=== PATIENT | female | born 1995 | race Caucasian/White ===

== ENCOUNTER 2023-10-17 08:24 | Day surgery (SDC) | payer OTHER, SELFPAY ==
--- NOTE | 2023-10-08 15:58 | PCM.HP.BLA ---
History and Physical Date of Admission: 10/17/23 Pre-Op History and Physical ? HPI: The patient is a 28 year old female presenting for discussion regarding EM polyp and AUB. Pt would like to get - does not desire hormonal therapy. Pt discussed option with Dr. Cano- would like to proceed with Hysterosocpy, D&C, polypectomy. ? pre-operative visit. She is scheduled for Hysteroscopy D&C and polypectomy, EUA, for AUB, endometrial polyp on 10/17/23. Procedure discussed along with risks, benefits and complications. Other alternatives discussed for management. Consent form signed? Yes. ? ? PAST MEDICAL HISTORY PAST MEDICAL HISTORY Diagnosis Date ? Heart palpitations ? ? Inappropriate sinus tachycardia ? ? Migraine with visual aura 08/2022 ? one episode - [facility] neurology letter in scanned documents ? Vasovagal syncope ? ? ? PAST SURGICAL HISTORY PAST SURGICAL HISTORY Procedure Laterality Date ? GALLBLADDER/EF ? 10/20/2010 ? NEXPLANON INSERTION Left 05/01/2021 ? removed ? NEXPLANON REMOVAL ? 08/2021 ? REDUCTION OF LARGE BREAST ? 10/20/2012 ? TONSILLECTOMY HX ? 10/20/2003 ? ? ? CURRENT MEDICATIONS Current Outpatient Medications Medication Sig Dispense Refill ? topiramate (TOPAMAX ORAL) Take by mouth. ? ? ? sumatriptan succinate (IMITREX ORAL) Take by mouth. ? ? ? metFORMIN ER (GLUCOPHAGE XR) 500 mg 24 hr tablet Take 2 tablets by mouth daily with dinner. 90 tablet 0 ? buPROPion SR (WELLBUTRIN SR) 150 mg 12 hr tablet Take 1 tablet by mouth twice daily. 180 tablet 0 ? ergocalciferol 50,000 unit capsule (VITAMIN D2, DRISDOL) Take 1 capsule by mouth one time a week. 12 capsule 3 ? albuterol HFA (PROVENTIL HFA, VENTOLIN HFA) 90 mcg/actuation inhaler Inhale as instructed. ? ? ? naproxen sodium (ANAPROX) 220 mg tablet Take 220 mg by mouth twice daily with meals. As needed ? ? ? No current facility-administered medications for this visit. ? ? ALLERGIES: Patient has no known allergies. ? PERSONAL HISTORY: SOCIAL HISTORY Social History ? Tobacco Use ? Smoking status: Never ? Smokeless tobacco: Never Vaping Use ? Vaping Use: Never used Substance Use Topics ? Alcohol use: Yes ? ? Comment: occasional ? Drug use: No ? FAMILY HISTORY: FAMILY HISTORY FAMILY HISTORY Adopted: Yes Problem Relation Age of Onset ? other (ms) Mother ? ? Heart Father ? ? quintuple bybass ? Cancer Father ? ? testicular ? Obesity Sister ? ? Obesity Sister ? ? Obesity Maternal Grandmother ? ? Obesity Maternal Grandfather ? ? ? REVIEW OF SYMPTOMS: negative except as noted above PHYSICAL EXAMINATION: ? VITALS: Blood pressure 120/80, weight 286 lb (129.7 kg), last menstrual period 09/21/2023. ? GENERAL: The patient is well nourished, well hydrated in no acute distress. , The patient is oriented to time, place, and person. NECK: full range of motion LUNGS: Clear to auscultation bilaterally. no wheezes, rhonchi or rales HEART: Regular rate and rhythm, Normal heart sounds, and No murmurs or gallops ? ? IMPRESSION: AUB, EM polyp on ultrasound ? PLAN: hysteroscopy, D&C, polypectomy, EUA ? Pt has been counseled on risks/benefits and alternatives of surgery including but not limited to anesthesia, bleeding, infection, uterine perforation with subsequent injury to pelvic structures including bowel, bladder, ureters and vessels. Pt wishes to proceed with surgery at this time. ? Advised about topriamate and not being on BC- potential for anomaly - pt verbalized will not take. ? Pre and post op instructions reviewed. ? I have reviewed and updated past medical and surgical history, medications and allergies Clotilde Vann MD ?9:52 AM Office Visit on 10/08/2023 Office Visit on 10/08/2023 Note shared with patient
[2023-10-17] VITALS (14 sets, daily range): BP systolic 105–151; BP diastolic 65–94; PULSE 85–107; RESP 16–17; TEMP 36.3–36.9; O2SAT 90–100; BMI 43.5
[2023-10-17] MEDS: Lactated Ringers 1,000 ML 15 ML IV (08:45)
[2023-10-17 09:00] LABS: Internal QC Validated? YES +Cl - CLEAR BKGD
[2023-10-17 09:01] LABS: Pregnancy, Urine Negative Negative; Record Kit Lot#,Urine Preg HCG0000667200
--- NOTE | 2023-10-17 10:00 | EMB_PTH ---
PATHOLOGY RESULTS PATIENT: BUNNY GROVES [place] [facility] [place][id number] AGE/SX: 28/F ROOM: RE10/17/[address]: Dr. Clotilde Vann MD : 1995 BED: DIS: 10/17/2023 SPEC #: [id number] RECD: 10/17/23 12:08 STATUS: JEFFERSON ALISON #: [id number] MAGGIE: 10/17/23 10:[address]: Clotilde Vann DEPT: SURGICAL PATHOLOGY RECD BY: Rupal Patterson ENTERED: 10/17/23 12:09 SP TYPE: ENDOM BX/C JORDI DR: No Primary Care Phys Tissues: Endometrium, NOS Procedures: Surgery Specimen Level IV HEADER OPERATION: Hysteroscopy, exam under anesthesia, D & C Symphion, polypectomy PRE-OP DIAGNOSIS: Endometrial polyp, abnormal uterine bleeding TISSUE SUBMITTED: Endometrial curettings MICROSCOPIC DIAGNOSIS Endometrium, curettings: Secretory endometrium with stromal and glandular breakdown. Fragments of benign myometrial tissue. AM:elly 10/21/2023 MICROSCOPIC DESCRIPTION Slides are reviewed. GROSS DESCRIPTION Received in fixative is one container labeled with the patient's name and designated endometrial curettings. The specimen consists of multiple irregular fragments of hammond-pink soft tissue mixed with hemorrhagic soft tissue that in aggregate measure 2.5 x 2.0 x 0.3 cm. The specimen is totally submitted in one cassette. / SJ:elly 10/17/2023 TC:5 CPT: 78139
--- NOTE | 2023-10-17 10:11 | PCM.OPRPT ---
Report of Operation Date of Procedure: 10/17/23 Pre-Operative Diagnosis: AUB, EM polyp Post-Operative Diagnosis: Same Surgery/Procedure Performed:: Hysteroscopy, D&C Description of Surgical Findings:: Uterus sounded to 8cm, no polyp identified. Fluid deficit 300cc Surgeon: Clotilde Valle Type of Anesthesia: MAC Specimen's removed: endometrial curettings Estimated Blood Loss (mL): 20cc Fluids Replaced: 400 Description of Procedure: Informed consent was obtained the patient was taken the operating room she was placed in supine position. She was given anesthesia. She was then placed in the [facility] where she was prepped and draped in the normal sterile fashion. Bladder drained prior to procedure. At this time the weighted speculum was placed in the posterior fornix of vagina. Single-tooth tenaculum was used to gently grasp the anterior lip the cervix. At this time the uterine cavity was sounded to approximately 8 cm. Gentle dilatation was performed once adequate dilatation of the cervix was achieved the hysteroscope using normal saline as a distention medium was placed. Thick endometrial tissue noted but no polyp noted. Difficult to keep cavity distended. Symphion resecting device used to obtain endometrial curettings. Tissue will be sent to pathology for evaluation. Tenaculum removed. Good hemostasis. Instrument, lap count correct x 2. Vaginal Sweep was negative. Grafts/Implants Used: none Procedure Start Time: 09:50 Procedure Stop Time: 10:08 Complications none Admit VTE Documentation VTE Present on Admission: Yes VTE Mechan Device Prophylaxis: SCD's VTE Pharm Prophylaxis ordered?: No Reason prophylaxis not ordered:: Procedure Not Indicated
--- NOTE | 2023-10-17 10:14 | DCINST_ITS ---
Discharge Instructions Diet Discharge Diet: No restrictions Activity May resume sexual activity in: 1 week Dressing / Incision Call your doctor if you observe: Fever of 101 or Higher, Inability to urinate, Using more than 1 pad per hour and Uncontrolled pain Follow Up Care Please Follow Up With: Clotilde Valle MD When: 1-2 weeks post OP if you need an appointment please call [phone] Test Results: Test results from this visit will be discussed in further detail at your follow- up appointment, if applicable. Discharge Plan Admission Attending Provider: Clotilde Valle Primary Care Provider: Care Physician,No Primary Discharge Orders/Prescriptions Prescriptions: No Action albuterol sulfate 90 mcg/actuation HFA aerosol inhaler 2 inh inhalation Q8H PRN (Reason: shortness of breath or wheezing) sumatriptan succinate [Imitrex] 100 mg tablet 100 mg PO Q2H PRN (Reason: migraine headache) Rx Instructions: do not exceed 2 doses per 24 hrs Referrals / Follow Up: Kingsley Randolph MD [Non-Staff] - Disposition Disposition (needs filled in before D/C Order can be placed): Home, Self Care
== END 2023-10-17 12:59 | disposition home or self-care (01) ==
LOC: SDC 08:25 → AC 08:29
PROVIDERS: Anesthesiology; Referring Provider Obstetrics & Gynecology; Visit Provider Obstetrics & Gynecology
PROC: 0UB98ZZ Excision of Uterus, Via Natural or Artificial Opening Endoscopic (ICD-10-PCS; CPT 58558; principal; 2023-10-17 09:45)
DX: N93.9 Abnormal uterine and vaginal bleeding, unspecified (principal); J45.909 Unspecified asthma, uncomplicated; G43.909 Migraine, unspecified, not intractable, without status migrainosus
CPT/HCPCS: 58558; 00952; 81025; 88305; 93005; J7120; J2405

== ENCOUNTER 2023-11-17 23:25 | Emergency (ER) | payer OTHER, SELFPAY ==
[2023-11-17 23:26] VITALS: BP 154/108; PULSE 89; RESP 16; TEMP 36.6; O2SAT 99; BMI 41.0
--- NOTE | 2023-11-18 00:20 | EX.ED.VIS.HA ---
HPI History of Present Illness Chief Complaint: Headache Informant: patient Narrative Narrative: 28-year-old female presenting to the emergency room chief complaint of headache. Patient states she has a history of ocular migraines. She states that around 2100 hrs. she began to get blurry vision in the right eye and then developed an occipital headache. She states she has nausea and uneasy feeling. She tells me it is like when you are underwater when asked her what she means she states its almost like she is floating. Then she tells me that the very uneasy like feeling. She denies any vomiting. No fevers. No URI symptoms. She denies any arm or leg symptoms. No rashes. She tried Imitrex with her which she was prescribed which did not help. PFSH PFS Medical History Alcohol use Anxiety Asthma Back pain Cardiology follow-up encounter Heartburn History of irregular heartbeat History of stress test Injury of back Leg cramps Migraine headache Non-smoker Syncope Wears glasses Home Medications albuterol sulfate 90 mcg/actuation aerosol inhaler 2 inh inhalation Q8H PRN shortness of breath or wheezing 09/30/23 [History Last Taken Unknown] sumatriptan succinate 100 mg tablet (Imitrex) 100 mg PO Q2H PRN migraine headache 09/30/23 [History Last Taken Unknown] Allergy/AdvReac Type Severity Reaction Status Date / Time No Known Allergies Allergy Verified 11/17/23 23:26 Surgical History History of laparoscopic cholecystectomy History of wisdom tooth extraction Hx of breast reduction, elective Hx of tonsillectomy Social History Smoking Status: Never smoker ROS ROS ED Constitutional Constitutional ED: Denies chills, fever(s) or weight loss Eyes Eyes: Reports blurry vision right; Denies change in vision or diplopia ENT ENT ED: Denies ear pain, rhinorrhea or sore throat Cardiovascular Cardiovascular: Denies chest pain, orthopnea, palpitations or racing heartbeat Respiratory/Chest Respiratory/Chest: Denies cough, dyspnea or orthopnea Gastrointestinal Gastrointestinal: Denies abdominal pain, diarrhea, nausea or vomiting Genitourinary Genitourinary ED: Denies dysuria, hematuria or urinary frequency Musculoskeletal Musculoskeletal: Denies arthralgias or myalgias Integumentary Denies abscess or rash Neurologic Neurologic: Reports headache(s); Denies paresthesias or weakness Psychiatric Psychiatric: Denies anxiety, depression, suicidal ideation or suicidal thoughts Endocrine Endocrinology: Denies polydipsia, polyphagia or polyuria Allergic/Immunologic Allergic/Immunologic ED: Denies mouth swelling, tongue swelling or urticaria EXAM Physical Exam Const Vital Signs: 11/17/23 23:26 Temperature 97.8 F Temperature Source Temporal Pulse Rate 89 Respiratory Rate 16 Blood Pressure 154/108 H Blood Pressure Mean 123 Pulse Ox 99 Positive well nourished, well developed and obese General Appearance ED: well developed Nutritional Appearance: obese HEENT Reports normocephalic, head/scalp atraumatic and moist mucous membranes HEENT Narrative: The eyes are noninjected. Extraocular motions are intact. There is no photophobia. No hyphema. I do not see any obvious papilledema on this nondilated funduscopic exam Eyes PERRL and EOMs intact bilaterally Neck no lymphadenopathy, supple and no JVD Resp normal respiratory effort and clear to auscultation bilaterally Cardio regular rate, regular rhythm and no murmurs GI normal to inspection, nondistended, normoactive bowel sounds and non-tender Palpation: soft Back/Spine no CVA tenderness and normal ROM Extremity normal to inspection General Extremety ED: Negative for edema General Extremity: Negative for edema Neuro oriented x3 and CN's II-XII intact bilaterally Sensorium / Orientation: alert Motor Exam: strength 5/5 throughout Psych mental status grossly normal Mood & Affect: Negative for depressed or tearful Skin no rashes or lesions noted and no wounds MDM MDM MDM Narrative Medical decision making narrative: Patient received Toradol Compazine and Benadryl. She will be observed. Care of the patient will be turned over to the oncoming night physician for reevaluation of the patient and final disposition. Discharge Plan Triage Chief Complaint: Headache ED Provider: Franco Suarez Dx/Rx/DC Orders Clinical Impression: Headache Prescriptions: No Action albuterol sulfate 90 mcg/actuation HFA aerosol inhaler 2 inh inhalation Q8H PRN (Reason: shortness of breath or wheezing) sumatriptan succinate [Imitrex] 100 mg tablet 100 mg PO Q2H PRN (Reason: migraine headache) Rx Instructions: do not exceed 2 doses per 24 hrs Primary Care Provider: Care Physician,No Primary Referrals: Care Physician,No Primary [Primary Care Provider] -
--- NOTE | 2023-11-18 00:31 | CT_ITS ---
STUDY: CT BRAIN WITHOUT CONTRAST REASON FOR EXAM: Female, 28 years old. Headache RADIATION DOSAGE (If Supplied By Facility): CTDIvol = ( 44.99 ) mGy, DLP = ( 829.85 ) mGycm TECHNIQUE: Transaxial CT imaging of the brain was performed without administration of intravenous contrast material. Individualized dose optimization techniques were used for this CT. COMPARISON: No relevant priors. FINDINGS: Normal soft tissue structures. Normal calvarium. Normal size ventricles and extra-axial spaces for the patient''s age. Normal white matter tracts of the cerebral hemispheres. Normal basal ganglia and thalami. Normal brainstem. Normal cerebellum. There is no intracranial hemorrhage. There are no findings of an acute ischemic infarction. Normal visualized paranasal sinuses. CT/Brain/Head without Contrast IMPRESSION: No acute intracranial abnormality. Electronically Signed: Chapito Rod MD at 2:09 EST ,
[2023-11-18] MEDS: DiphenhydrAMINE 50 MG/ML Syringe IV (00:37)
[2023-11-18] MEDS: 0.9% Normal Saline (1000mL) 1,000 ML 999 ML IV (00:37)
[2023-11-18] MEDS: Ketorolac 30 MG/ML Syringe IV (00:37)
[2023-11-18] MEDS: proCHLORPERazine 10 MG/2 ML Vial IV (00:37)
--- OUTSIDE RECORDS SUMMARY | 2023-11-18 00:45 | XMS RPT_ITS | CCD ---
Author Name Unknown Address [address] [place] [id number] Organization [facility] Care Team Providers Care Biscuit Machine Operator Name Role Phone System, Provider Not In Unavailable Unavaila ble Unavailable Unavailable Unavailable Lashonda Bird Unavailable Unavailab Lashonda Arteaga Unavailable Unavailab Jose Mar Unavailable Unavailable Jose [place] Unavailable Unavailable OrestesDequan Unavailable Unavailable OrestesDequan Unavailable Unavailable Rosy, Joni S Unavailable Unavailable [place], Joni S Unavailable Unavailable HAMDAN, FIRAS M A Unavailable Unavailable HAMDAN, FIRAS M A Unavailable Unavailable LIVINGSTON, LASHONDA Unavailable Unavailable HAMDAN, FIRAS M A Unavailable Unavailable Latouf, Butros Unavailable GODWIN NI Unavailable Unavailable SYSTEM, PROVIDER NOT IN Unavailable Unavaila ble Latarnoldf, Butros Primary Care Provider Tristan DAVIS Butros Primary Care Provider LATOUF, BUTROS Primary Care Unavailable MARISOL WHITE Attending Unavailabl e TRISTAN, BUTROS Primary Care Unavailable DESIREE SIMMONS Attending Unavail able LATOUF, BUTROS Primary Care Unavailable JEM GAYTAN Attending Unavailable Tristan DAVIS Butsaurabh Primary Care Provider LATOUF, BUTROS Primary Care Unavailable KRAIG DAMIAN Attending Unavailabl Mely Khan MD Primary Care Provider [phone] LATOUF, BUTROS Primary Care Unavailable LISSETH HENDERSON Attending Unavailable LATOUF, BUTROS Primary Care Unavailable RUBINA WEAVER Admitting Unavailable EDDIE SALAZAR Attending Unavail able LATOUF, BUTROS Primary Care Unavailable ALIYA CORREA Attending Unavailable LATOUF, BUTROS Primary Care Unavailable VERENICE WRIGHT Consulting Unavailable MARIA DEL ROSARIO MANCIA Admitting Unavailab le Tristan DAVIS, Butros Primary Care Provider [phone] LATMARNIE BUTSAURABH DAVIS Primary Care Unavailable LATOUF, BUTROS MD Consulting Unavailable LATOUF, BUTROS MD Attending Unavailable LATOUF, BUTROS MD Admitting Unavailable PROVIDER, UNKNOWN Consulting Unavailable PROVIDER, UNKNOWN Consulting Unavailable PROVIDER, UNKNOWN Consulting Unavailable LATOUF, BUTROS Admitting Unavailable LATOUF, BUTROS Primary Care Unavailable LATOUF, BUTROS MD Consulting Unavailable LATOUF, BUTROS MD Attending Unavailable PROVIDER, UNKNOWN Consulting Unavailable PROVIDER, UNKNOWN Consulting Unavailable PROVIDER, UNKNOWN Consulting Unavailable Latouf , Butros Primary Care Provider LATOUF, BUTROS Admitting Unavailable LATOUF, BUTROS Primary Care Unavailable LATOUF, BUTROS Referring Unavailable FREDI DE SANTIAGO Attending Unavailabl e NIR ANNE Attending Unavailable OMID, KARMON Referring Unavailable LATOUF, BUTROS Primary Care Unavailable NIR ANNE Referring Unavailable LATOUF, BUTROS Primary Care Unavailable NIR ANNE Attending Unavailable LATOUF, BUTROS Primary Care Unavailable BRUNSON, NATALI Referring Unavailable LATOUF, BUTROS Primary Care Unavailable LATOUF, BUTROS Primary Care Unavailable BRUNSON, NATALI Attending Unavailable LICHA BLOCK Attending Unavailable LATOUF, BUTROS Primary Care Unavailable BRUNSON, NATALI Referring Unavailable LATOUF, BUTROS Primary Care Unavailable BRUNSON, NATALI Attending Unavailable BRUNSON, NATALI Referring Unavailable LATOUF, BUTROS Primary Care Unavailable BRUNSON, NATALI Referring Unavailable LATOUF, BUTROS Primary Care Unavailable LATOUF, BUTROS Primary Care Unavailable BRUNSON, NATALI Attending Unavailable CLOTILDE CADET Attending Unavail able LATOUF, BUTROS Primary Care Unavailable Medications Current Medications Medication Drug Class(es) Dates Sig (Normalized) Sig (Original) albuterol 90 mcg/actuation inhaler (1 source) Start: 03-01-2020 take 2 puff(s) by inhalation every four hours as needed for wheezing, then take 1-2 puff(s) by inhalation every four to six hours as needed for wheezing albuterol 90 mcg/actuation inhaler 2 puffs every 4 hours for the next 48 hours, then 1-2 puffs every 4-6 hours as needed for shortness of breath or wheezing . 1 Inhaler 0 03/01/2020 Active atenolol 25 mg oral tablet (3 sources) beta-Adrenergic Idris Start: 01-03-2018 End: 02-02-2018 take 1 tablet by mouth once daily atenolol (TENORMIN) 25 MG tablet Take 1 (one) tablet (25 mg total) by mouth daily. 30 tablet 0 01/03/2018 02/02/2018 Active etonogestrel 68 mg drug implant (2 sources) Progestin Start: 05-01-2021 End: 04-30-2024 etonogestrel (NEXPLANON) subdermal implant 68 mg Indications: Encounter for removal and reinsertion of Nexplanon 1 Each by SUBDERMAL route as directed. 1 Each 0 05/01/2021 04/30/2024 Active Completed/Discontinued Medications Medication Drug Class(es) Dates Sig (Normalized) Sig (Original) acetaminophen 325 mg oral tablet (2 sources) Start: 09-03-2022 End: 09-04-2022 take 1 tablet by mouth every four hours as needed for pain and headache acetaminophen (TYLENOL) tablet 650 mg Problems Active Problems Problem Classification Problem Date Documented Date Episodic/Chronic Abdominal pain (3 sources) Pain in pelvis; Translations: [Pelvic and perineal pain] Onset: 09-01-2023 08-26-2023 Episodic Administrative/social admission (2 sources) Encounter for administrative examinations, unspecified; Translations: [Encounter for administrative examinations, unspecified] Onset: 10-15-2022 Episodic Blindness and vision defects (3 sources) Eye / vision finding; Translations: [Unspecified visual disturbance] Onset: 09-03-2022 Episodic Cardiac dysrhythmias (5 sources) Sinus tachycardia; Translations: [Sinus tachycardia] Onset: 01-02-2018 01-02-2018 Chronic Conditions associated with dizziness or vertigo (2 sources) Dizziness and giddiness; Translations: [Dizziness and giddiness] Onset: 08-08-2018 Episodic Essential hypertension (3 sources) Hypertensive disorder; Translations: [Essential (primary) hypertension] Onset: 09-03-2022 Chronic Headache; including migraine (4 sources) Migraine with aura; Translations: [Migraine with aura, not intractable, without status migrainosus] Onset: 08-28-2023 08-28-2023 Chronic Headache; including migraine (1 source) Acute headache; Translations: [Acute nonintractable headache, unspecified headache type] Episodic Headache; including migraine (3 sources) Headache; including migraine; Translations: [Headache, unspecified] Onset: 09-03-2022 Immunizations and screening for infectious disease (1 source) Requires vaccination; Translations: [Encounter for immunization] Episodic Menstrual disorders (3 sources) Irregular periods; Translations: [Irregular menstruation, unspecified] Onset: 12-27-2022 Chronic Nonmalignant breast conditions (2 sources) Pain of breast; Translations: [Mastodynia] Episodic Nutritional deficiencies (1 source) Vitamin D deficiency, unspecified; Translations: [Vitamin D deficiency] Onset: 03-07-2023 Chronic Other endocrine disorders (1 source) Polycystic ovarian syndrome; Translations: [PCOS (polycystic ovarian syndrome)] Onset: 03-07-2023 Chronic Other female genital disorders (4 sources) Abnormal uterine bleeding; Translations: [Abnormal uterine and vaginal bleeding, unspecified] 08-26-2023 Chronic Other female genital disorders (1 source) Abnormal uterine and vaginal bleeding, unspecified; Translations: [Abnormal uterine bleeding (AUB)] Onset: 09-01-2023 Chronic Other female genital disorders (2 sources) Polyp of corpus uteri; Translations: [Polyp of corpus uteri] 09-04-2023 Episodic Other lower respiratory disease (1 source) Dyspnea; Translations: [Dyspnea, unspecified type] Episodic Other nervous system disorders (1 source) Other symptoms and signs involving cognitive functions and awareness; Translations: [Other symptoms and signs involving cognitive functions and awareness] Onset: 06-20-2023 Episodic Other nutritional; endocrine; and metabolic disorders (1 source) Severe obesity; Translations: [Morbid (severe) obesity due to excess calories] Chronic Other nutritional; endocrine; and metabolic disorders (1 source) Morbid (severe) obesity due to excess calories; Translations: [Class 3 severe obesity with body mass index (BMI) of 40.0 to 44.9 in adult, unspecified obesity type, unspecified whether serious comorbidity present (HCC)] Onset: 03-07-2023 Chronic Other nutritional; endocrine; and metabolic disorders (1 source) Body mass index (BMI) 40.0-44.9, adult; Translations: [Class 3 severe obesity with body mass index (BMI) of 40.0 to 44.9 in adult, unspecified obesity type, unspecified whether serious comorbidity present (HCC)] Onset: 03-07-2023 Chronic Other skin disorders (1 source) Eruption; Translations: [Rash and other nonspecific skin eruption] Episodic Other skin disorders (2 sources) Hirsutism; Translations: [Hirsutism] Episodic Unclassified (1 source) [facility] Contact Required; Translations: [[place] [facility] Phys[facility] Contact Required] Onset: 10-15-2022 Past or Other Problems Problem Classification Problem Date Documented Da te Episodic/Chronic Cancer of cervix (11 sources) Atypical squamous cells of undetermined significance on cervical Papanicolaou smear; Translations: [Atypical squamous cells of undetermined significance on cytologic smear of cervix (ASC-US)] Onset: 04-18-2021 04-18-2021 Episodic Cardiac dysrhythmias (20 sources) Palpitations; Translations: [Tachycardia, unspecified] Onset: 01-01-2018 08-24-2018 Episodic Contraceptive and procreative management (13 sources) Patient encounter status; Translations: [Encounter for surveillance of implantable subdermal contraceptive] Onset: 05-01-2021 05-01-2021 Episodic E Codes: Adverse effects of medical drugs (2 sources) Adverse effect of beta-adrenoreceptor antagonists, initial encounter; Translations: [Adverse effect of beta-adrenoreceptor antagonists, initial encounter] Onset: 08-09-2020 Episodic Fluid and electrolyte disorders (11 sources) Hypokalemia; Translations: [Hypokalemia] Onset: 12-12-2017 02-05-2018 Episodic Other connective tissue disease (3 sources) Transient neurological symptoms; Translations: [Other symptoms and signs involving the nervous system] Onset: 09-03-2022 Episodic Other nutritional; endocrine; and metabolic disorders (1 source) Other symptoms and signs concerning food and fluid intake; Translations: [Craving for particular food] Onset: 03-07-2023 Episodic Other screening for suspected conditions (not mental disorders or infectious disease) (4 sources) Cancer cervix screening status; Translations: [Encounter for screening for malignant neoplasm of cervix] Onset: 03-07-2023 Episodic Other skin disorders (1 source) Hirsutism; Translations: [Hirsutism] Onset: 12-27-2022 Episodic Syncope (8 sources) Syncope; Translations: [Syncope and collapse] Onset: 08-08-2018 08-24-2018 Episodic Unclassified (1 source) [facility] Contact Required; Translations: [[place] [facility] Phys[facility] Contact Required] Onset: 10-15-2022 Results Test Name Value Interpretation Reference Range Facil ity Vital Signs Date Time Vital Sign Value Performing Clinician Faci lity 10-08-2023 09:18-0500 Body weight 129.73 kg Clotilde Marion MD Work Phone: [facility] 10-08-2023 09:18-0500 Diastolic blood pressure 80 mm[Hg] Clotilde Marion MD Work Phone: [facility] 10-08-2023 09:18-0500 Systolic blood pressure 120 mm[Hg] Clotilde Marion MD Work Phone: [facility] 09-04-2023 13:44-0500 Body weight 128.1 kg Nir Anne MD Work Phone: [facility] 09-04-2023 13:44-0500 Diastolic blood pressure 90 mm[Hg] Nir Anne MD Work Phone: [facility] 09-04-2023 13:44-0500 Systolic blood pressure 132 mm[Hg] Nir Anne MD Work Phone: [facility] 08-28-2023 13:00-0500 Body mass index (BMI) [Ratio] 42.8 kg/m2 Fredi De Santiago MD Work Phone: [facility] 08-28-2023 13:00-0500 Body weight 127.69 kg Fredi De Santiago MD Work Phone: [facility] 08-28-2023 13:00-0500 Diastolic blood pressure 88 mm[Hg] Fredi De Santiago MD Work Phone: [facility] 08-28-2023 13:00-0500 Heart rate 85 /min Fredi De Santiago MD Work Phone: [facility] 08-28-2023 13:00-0500 Systolic blood pressure 122 mm[Hg] Fredi De Santiago MD Work Phone: [facility] 08-26-2023 10:30-0500 Body weight 128.82 kg Nir Anne MD Work Phone: [facility] 08-26-2023 10:30-0500 Diastolic blood pressure 82 mm[Hg] Nir Anne MD Work Phone: [facility] 08-26-2023 10:30-0500 Systolic blood pressure 138 mm[Hg] Nir Anne MD Work Phone: [facility] 12-23-2022 08:06-0500 Body height 172.7 cm Natali Brunson APRN.FLEXIBLE MACHINING SYSTEM MACHINIST Work Phone: [facility] 12-23-2022 08:06-0500 Body weight 126.64 kg Natali Brunson APRN.FLEXIBLE MACHINING SYSTEM MACHINIST Work Phone: [facility] 12-23-2022 08:06-0500 Diastolic blood pressure 80 mm[Hg] Natali Brunson APRN.FLEXIBLE MACHINING SYSTEM MACHINIST Work Phone: [facility] 12-23-2022 08:06-0500 Systolic blood pressure 120 mm[Hg] Natali Brunson APRN.FLEXIBLE MACHINING SYSTEM MACHINIST Work Phone: [facility] 09-04-2022 09:32-0500 Respiratory rate 16 /min Lisseth Henderson MD Work Phone: [facility] 09-04-2022 07:49-0500 Body temperature 97.9 [degF] Lisseth Henderson MD Work Phone: [facility] 09-04-2022 07:49-0500 Diastolic blood pressure 80 mm[Hg] Lisseth Henderson MD Work Phone: [facility] 09-04-2022 07:49-0500 Heart rate 91 /min Lisseth Henderson MD Work Phone: [facility] 09-04-2022 07:49-0500 SaO2% (BldA) [Mass fraction] 95 % Lisseth Henderson MD Work Phone: [facility] 09-04-2022 07:49-0500 Systolic blood pressure 121 mm[Hg] Lisseth Henderson MD Work Phone: [facility] 09-03-2022 23:32-0500 Body height 172.7 cm Lisseth Henderson MD Work Phone: [facility] 09-03-2022 23:32-0500 Body mass index (BMI) [Ratio] 36.49 kg/m2 Lisseth Henderson MD Work Phone: [facility] 09-03-2022 23:32-0500 Body weight 108.86 kg Lisseth Henderson MD Work Phone: [facility] 07-02-2022 10:03-0400 Body weight 124.74 kg Natali Brunson APRN.FLEXIBLE MACHINING SYSTEM MACHINIST Work Phone: [facility] 07-02-2022 10:03-0400 Diastolic blood pressure 80 mm[Hg] Natali Brunson APRN.FLEXIBLE MACHINING SYSTEM MACHINIST Work Phone: [facility] 07-02-2022 10:03-0400 Systolic blood pressure 124 mm[Hg] Natali Brunson APRN.FLEXIBLE MACHINING SYSTEM MACHINIST Work Phone: [facility] 03-20-2021 12:59-0400 Body height 172.7 cm Marisol White PA-C Work Phone: [facility] 03-20-2021 12:59-0400 Body mass index (BMI) [Ratio] 30.41 kg/m2 Marisol White PA-C Work Phone: [facility] 03-20-2021 12:59-0400 Body temperature 97.59 [degF] Marisol White PA-C Work Phone: [facility] 03-20-2021 12:59-0400 Body weight 90.72 kg Marisol White PA-C Work Phone: [facility] 03-20-2021 12:59-0400 Diastolic blood pressure 78 mm[Hg] Marisol White PA-C Work Phone: [facility] 03-20-2021 12:59-0400 Heart rate 101 /min Marisol White PA-C Work Phone: [facility] 03-20-2021 12:59-0400 Respiratory rate 18 /min Marisol White PA-C Work Phone: [facility] 03-20-2021 12:59-0400 SaO2% (BldA) [Mass fraction] 98 % Marisol White PA-C Work Phone: [facility] 03-20-2021 12:59-0400 Systolic blood pressure 116 mm[Hg] Marisol White PA-C Work Phone: [facility] 03-01-2020 00:18-0400 Respiratory Rate 18 /min [facility] 03-01-2020 00:16-0400 BP Diastolic 73 mm[Hg] [facility] 03-01-2020 00:16-0400 BP Systolic 118 mm[Hg] [facility] 03-01-2020 00:16-0400 Pulse (Heart Rate) 111 /min [facility] 03-01-2020 00:16-0400 Pulse Oximetry 100 % [facility] 02-29-2020 23:41-0400 BMI (Body Mass Index) 30.41 kg/m2 [facility] 02-29-2020 23:41-0400 Body Temperature 98.71 [degF] [facility] 02-29-2020 23:41-0400 Body weight 90.72 kg [facility] 02-29-2020 23:41-0400 Height 172.7 cm [facility] 09-08-2018 15:15-0500 BP Diastolic 66 mm[Hg] [facility] 09-08-2018 15:15-0500 BP Systolic 106 mm[Hg] [facility] 09-08-2018 15:15-0500 Pulse (Heart Rate) 102 /min Alfredcruz Sain[facility] 09-08-2018 15:15-0500 Pulse Oximetry 97 % [facility] 09-08-2018 15:15-0500 Respiratory Rate 17 /min [facility]cruz [facility] 09-08-2018 13:30-0500 Body Temperature 98.49 [degF] [facility] 09-08-2018 09:45-0500 BMI (Body Mass Index) 35.05 kg/m2 Alfredcruz Sainz [facility] 09-08-2018 09:45-0500 Height 172.7 cm Alfredcruz Sain[facility] 09-08-2018 09:45-0500 Weight 104.55 kg Alfredcruz Sain[facility] 01-12-2018 21:00-0400 BP Diastolic 66 mm[Hg] [facility] 01-12-2018 21:00-0400 BP Systolic 125 mm[Hg] [facility] 01-12-2018 21:00-0400 Pulse (Heart Rate) 86 /min [facility] 01-12-2018 21:00-0400 Pulse Oximetry 99 % [facility] 01-12-2018 21:00-0400 Respiratory Rate 15 /min [facility] 01-12-2018 18:06-0400 BMI (Body Mass Index) 34.97 kg/m2 [facility] 01-12-2018 18:06-0400 Body Temperature 97.81 [degF] [facility] 01-12-2018 18:06-0400 Height 172.7 cm [facility] 01-12-2018 18:06-0400 Weight 104.33 kg [facility] Encounters Encounter Date Encounter Type Care Provider Facility Start: 10-08-2023 End: 10-08-2023 ambulatory CLOTILDE MARION Facility:[facility] Start: 10-08-2023 End: 10-08-2023 Patient encounter procedure Clotilde Marion MD Work Phone: OB/Gynecology Procedures Date Procedure Procedure Detail Performing Clinician Start: 09-01-2023 Us pelvic nonobstetric image dcmtn limited/f/u Nir Anne MD Work Phone: Start: 12-27-2022 Us transvaginal Natali Brunson APRN.FLEXIBLE MACHINING SYSTEM MACHINIST Work Phone: Start: 12-23-2022 Microscopic observation [Identifier] in Cervix by Cyto stain Fredi De Santiago MD Work Phone: Start: 09-04-2022 Glucose measurement Maria Del Rosario jones MD Work Phone: Start: 09-04-2022 Lipid panel Lisette Garcia CN P Work Phone: Start: 09-04-2022 Glucose measurement Maria Del Rosario jones MD Work Phone: Start: 09-03-2022 Mri brain brain stem w/o contrast material Lisette Garcia FLEXIBLE MACHINING SYSTEM MACHINIST Work Phone: Start: 09-03-2022 SARS-CoV-2 (COVID-19) RNA [Presence] in Respiratory specimen by VINICIO with probe detection Lisseth Henderson MD Work Phone: Start: 09-03-2022 Urnls dip stick/tablet reagent auto microscopy Lisseth Henderson MD Work Phone: Start: 09-03-2022 End: 09-03-2022 Ct head/brain w/o contrast material Lisseth Henderson MD Work Phone: Start: 09-03-2022 [place] TOP Lisseth Henderson MD Work Phone: Start: 09-03-2022 End: 09-03-2022 Hemoglobin glycosylated a1c Lisette Garcia FLEXIBLE MACHINING SYSTEM MACHINIST Work Phone: Start: 09-03-2022 LIGHT GREEN TOP Lisseth Henderson MD Work Phone: Start: 09-03-2022 PINK TOP Lisseth Henderson MD Work Phone: Start: 09-03-2022 RAINBOW DRAW Lisseth Henderson MD Work Phone: Start: 09-03-2022 Glucose measurement Lisseth Henderson MD Work Phone: Start: 07-09-2022 Us breast uni real time with image limited Natali Brunson APRN.FLEXIBLE MACHINING SYSTEM MACHINIST Work Phone: Start: 09-08-2018 End: 09-08-2018 EP STUDY POSS COMPLEX ABLATION Alfred Luis Sainz Work Phone: Start: 09-08-2018 End: 09-08-2018 Choriogonadotropin ( test) [Presence] in Urine [facility]ain[facility] Work Phone: Plan of Treatment Date Care Activity Detail Author Start: 08-08-2028 Tetanus vaccination [facility] Start: 12-23-2025 HPV Testing HPV Testing [facility] Start: 12-23-2025 PAP TESTING PAP TESTING [facility] Start: 12-23-2025 Screening for malignant neoplasm of cervix [facility] Start: 04-10-2024 PAP TESTING PAP TESTING [facility] Start: 12-03-2023 End: 12-03-2023 Telemedicine consultation with patient 12/03/2023 10:40 AM EST Telemedicine [facility] [address] [place] [id number] Fredi De Santiago MD [address] [place] [address] [facility] Start: 06-20-2023 Covid-19 Vaccine ( season) Covid-19 Vaccine ( season) [facility] Start: 12-23-2022 End: 02-22-2023 17-Hydroxyprogesterone [Mass/volume] in Serum or Plasma [facility] Work Phone: Immunizations Immunization Date Immunization Notes Care Provider Fa cili 08-12-2023 influenza virus vacc ine, unspecified formulation Nir Anne MD Work Phone: [facility] 12-23-2022 Human Papillomavirus 9-valent vaccine Natali Brunson APRN.FLEXIBLE MACHINING SYSTEM MACHINIST Work Phone: [facility] 05-03-2021 Human Papillomavirus 9-valent vaccine Natali Holmanhrie TAMIKA.FLEXIBLE MACHINING SYSTEM MACHINIST Work Phone: [facility] 02-05-2018 Human Papillomavirus 9-valent vaccine Natali Brunson TAMIKA.FLEXIBLE MACHINING SYSTEM MACHINIST Work Phone: [facility] Payers Date Payer Category Payer Private Health Insurance [id number] 2023 Unknown [id number] 2022 Unknown [id number] 2022 Unknown [id number] 2020 Unknown [employer]AGU[employer] JOHNSON/PREF/HMO/PPO [id number] 2020-Present [id number] 2020 Unknown [id number] 2020 Unknown [id number] 2020 Unknown [facility] xxxxxxxxx 2020-Present xxxxxxxxx [id number] 2020 Unknown [id number] 2017 [facility] [id number] 1994 Unknown [id number]. 902 1994 Unknown [id number]. 903 1994 Unknown [id number] .[id number]. 903 1994 Unknown [id number] 2..[id number]. 900 1994 Unknown [id number]. 902 1994 Unknown [id number]. 900 1994 Unknown [id number]. 900 1994 Unknown [id number]. 900 1994 Unknown [id number]. 651 1994 Unknown [id number]. 651 1994 Unknown [id number]. 903 Unknown [id number] Social History Date Type Detail Facility Start: 07-26-2017 End: 01-26-2018 Tobacco smoking status [facility] Unknown if ever smoked [facility] Work Phone: Start: 1995 Sex Assigned At Not on file [facility] Work Phone: Start: 01-05-2018 End: 07-02-2022 Tobacco smoking status NCIS Never smoker [facility] Start: 02-29-2020 End: 10-08-2023 Alcohol intake Current drinker of alcohol (finding) [facility] Start: 08-08-2018 Alcohol Comment monthly [facility] Start: 06-22-2022 End: 09-03-2022 Exposure to SARS-CoV-2 (event) Not sure [facility] Start: 03-20-2021 End: 07-02-2022 Tobacco use and exposure Never used [facility] Start: 03-20-2021 Alcohol Comment soc [facility] Start: 07-26-2020 History SDOH Alcohol Frequency 3 [facility] Start: 07-26-2020 History SDOH Alcohol Std Drinks 1 [facility] Start: 04-10-2021 History SDOH Alcohol Comment occasional [facility] Start: 1995 Sex Assigned At Female [facility] Start: 07-26-2020 End: 03-07-2023 History of Social function [facility] Start: 07-26-2020 End: 03-07-2023 Alcohol Use Disorder Identification Test - Consumption [AUDIT-C] [facility] [facility] How often to you hav e a drink containing alcohol? 2-4 times a month [facility] How many standard dr inks containing alcohol do you have on a typical day? 1 or 2 [facility] How often do you hav e 6 or more drinks on 1 occasion? Never [facility] National Score (1-10 0), lower number is lower risk 73 [facility] Start: 08-24-2018 Gender identity Identifies as female gender (finding) [facility] Start: 08-24-2018 Sexual orientation Heterosexual (finding) [facility] Clinical Notes 03-20-2021 to 10-08-2023 Clotilde Cadet MD - 10/08/2023 9:41 AM Clotilde Mathew MD - 10/08/2023 9:28 AM Nir Santamaria MD - 09/04/2023 1:36 PM ESTPatient InstructionsPatient Instructions Note Date & Type Note Facility 10-08-2023 Note HNO ID: [id number] Author: Clotilde Cadet MD Service: ? Author Type: Physician Type: Progress Notes Filed: 10/08/2023 9:52 AM Note Text: [facility] 10-08-2023 History and physical note Pre-Op History and Physical HPI: The patient is a 28 year old female presenting for discussion regarding EM polyp and AUB. Pt would like to get - does not desire hormonal therapy. Pt discussed option with Dr. Anne- would like to proceed with Hysterosocpy, D&C, polypectomy. pre-operative visit. She is scheduled for Hysteroscopy D&C and polypectomy, EUA, for AUB, endometrial polyp on 10/17/23. Procedure discussed along with risks, benefits and complications. Other alternatives discussed for management. Consent form signed? Yes. PAST MEDICAL HISTORY Diagnosis Date Heart palpitations Inappropriate sinus tachycardia Migraine with visual aura 08/2022 one episode - [facility] neurology letter in scanned documents Vasovagal syncope PAST SURGICAL HISTORY Procedure Laterality Date GALLBLADDER/EF 10/20/2010 NEXPLANON INSERTION Left 05/01/2021 removed NEXPLANON REMOVAL 08/2021 REDUCTION OF LARGE BREAST 10/20/2012 TONSILLECTOMY HX 10/20/2003 Current Outpatient Medications Medication Sig Dispense Refill topiramate (TOPAMAX ORAL) Take by mouth. sumatriptan succinate (IMITREX ORAL) Take by mouth. metFORMIN ER (GLUCOPHAGE XR) 500 mg 24 hr tablet Take 2 tablets by mouth daily with dinner. 90 tablet 0 buPROPion SR (WELLBUTRIN SR) 150 mg 12 hr tablet Take 1 tablet by mouth twice daily. 180 tablet 0 ergocalciferol 50,000 unit capsule (VITAMIN D2, DRISDOL) Take 1 capsule by mouth one time a week. 12 capsule 3 albuterol HFA (PROVENTIL HFA, VENTOLIN HFA) 90 mcg/actuation inhaler Inhale as instructed. naproxen sodium (ANAPROX) 220 mg tablet Take 220 mg by mouth twice daily with meals. As needed No current facility-administered medications for this visit. ALLERGIES: Patient has no known allergies. PERSONAL HISTORY: Social History Tobacco Use Smoking status: Never Smokeless tobacco: Never Vaping Use Vaping Use: Never used Substance Use Topics Alcohol use: Yes Comment: occasional Drug use: No FAMILY HISTORY: FAMILY HISTORY Adopted: Yes Problem Relation Age of Onset other (ms) Mother Heart Father quintuple bybass Cancer Father testicular Obesity Sister Obesity Sister Obesity Maternal Grandmother Obesity Maternal Grandfather REVIEW OF SYMPTOMS: negative except as noted above PHYSICAL EXAMINATION: VITALS: Blood pressure 120/80, weight 286 lb (129.7 kg), last menstrual period 09/21/2023. GENERAL: The patient is well nourished, well hydrated in no acute distress. , The patient is oriented to time, place, and person. NECK: full range of motion LUNGS: Clear to auscultation bilaterally. no wheezes, rhonchi or rales HEART: Regular rate and rhythm, Normal heart sounds, and No murmurs or gallops IMPRESSION: AUB, EM polyp on ultrasound PLAN: hysteroscopy, D&C, polypectomy, EUA Pt has been counseled on risks/benefits and alternatives of surgery including but not limited to anesthesia, bleeding, infection, uterine perforation with subsequent injury to pelvic structures including bowel, bladder, ureters and vessels. Pt wishes to proceed with surgery at this time. Advised about topriamate and not being on BC- potential for anomaly - pt verbalized will not take. Pre and post op instructions reviewed. I have reviewed and updated past medical and surgical history, medications and allergies Clotilde Marion MD documented in this encounter [facility] 10-08-2023 History of Present illness Narrative documented in this encounter [facility] 09-04-2023 Note HNO ID: [id number] Author: Nir Anne MD Service: ? Author Type: Physician Type: Progress Notes Filed: 09/04/2023 3:15 PM Note Text: Juan Antonio Guerin is a 28 year old female who presents for problem visit. HPI: Patient presents to discuss US results AND plan of care. 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 Comments: Sexual Activity: Yes; Male Contraception: Condom PAST MEDICAL HISTORY Diagnosis Date Heart palpitations Inappropriate sinus tachycardia Migraine with visual aura 08/2022 one episode - [facility] neurology letter in scanned documents Vasovagal syncope PAST SURGICAL HISTORY Procedure Laterality Date GALLBLADDER/EF 10/20/2010 NEXPLANON INSERTION Left 05/01/2021 removed NEXPLANON REMOVAL 08/2021 REDUCTION OF LARGE BREAST 10/20/2012 TONSILLECTOMY HX 10/20/2003 FAMILY HISTORY Adopted: Yes Problem Relation Age of Onset other (ms) Mother Heart Father quintuple bybass Cancer Father testicular Obesity Sister Obesity Sister Obesity Maternal Grandmother Obesity Maternal Grandfather Social History Tobacco Use Smoking status: Never Smokeless tobacco: Never Vaping Use Vaping Use: Never used Substance Use Topics Alcohol use: Yes Comment: occasional Drug use: No Current Outpatient Medications Medication Sig topiramate (TOPAMAX ORAL) Take by mouth. sumatriptan succinate (IMITREX ORAL) Take by mouth. metFORMIN ER (GLUCOPHAGE XR) 500 mg 24 hr tablet Take 2 tablets by mouth daily with dinner. buPROPion SR (WELLBUTRIN SR) 150 mg 12 hr tablet Take 1 tablet by mouth twice daily. ergocalciferol 50,000 unit capsule (VITAMIN D2, DRISDOL) Take 1 capsule by mouth one time a week. albuterol HFA (PROVENTIL HFA, VENTOLIN HFA) 90 mcg/actuation inhaler Inhale as instructed. naproxen sodium (ANAPROX) 220 mg tablet Take 220 mg by mouth twice daily with meals. As needed No current facility-administered medications for this visit. Allergies As of Date: 09/04/2023 (No Known Allergies) Fully Assessed 09/04/2023 Allergies and current medication updated:Yes EXAM: BP 132/90 Wt 282 lb 6.4 oz (128.1kg) LMP 08/20/2023 GENERAL: pleasant, female in no apparent distress ASSESSMENT AND PLAN: 28yo female with AUB and endometrial polyp on US Discussed R/B/A of treatment options and patient wishes to proceed with hysteroscopy, DANDC and polypectomy. She desires in the next year so declines Mirena IUD placement. Medical Decision Making: Problems: Moderate: New problem with uncertain prognosis Risk: Low: Low risk from testing/treatment Medical Decision Making Level: 3 - Low Nir Anne MD [facility] 09-04-2023 History of Present illness Narrative Juan Antonio Guerin is a 28 year old female who presents for problem visit. HPI: Patient presents to discuss US results & plan of care. 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 Comments: Sexual Activity: Yes; Male Contraception: Condom PAST MEDICAL HISTORY Diagnosis Date Heart palpitations Inappropriate sinus tachycardia Migraine with visual aura 08/2022 one episode - [facility] neurology letter in scanned documents Vasovagal syncope PAST SURGICAL HISTORY Procedure Laterality Date GALLBLADDER/EF 10/20/2010 NEXPLANON INSERTION Left 05/01/2021 removed NEXPLANON REMOVAL 08/2021 REDUCTION OF LARGE BREAST 10/20/2012 TONSILLECTOMY HX 10/20/2003 FAMILY HISTORY Adopted: Yes Problem Relation Age of Onset other (ms) Mother Heart Father izzy cortezbaterry Cancer Father testicular Obesity Sister Obesity Sister Obesity Maternal Grandmother Obesity Maternal Grandfather Social History Tobacco Use Smoking status: Never Smokeless tobacco: Never Vaping Use Vaping Use: Never used Substance Use Topics Alcohol use: Yes Comment: occasional Drug use: No Current Outpatient Medications Medication Sig topiramate (TOPAMAX ORAL) Take by mouth. sumatriptan succinate (IMITREX ORAL) Take by mouth. metFORMIN ER (GLUCOPHAGE XR) 500 mg 24 hr tablet Take 2 tablets by mouth daily with dinner. buPROPion SR (WELLBUTRIN SR) 150 mg 12 hr tablet Take 1 tablet by mouth twice daily. ergocalciferol 50,000 unit capsule (VITAMIN D2, DRISDOL) Take 1 capsule by mouth one time a week. albuterol HFA (PROVENTIL HFA, VENTOLIN HFA) 90 mcg/actuation inhaler Inhale as instructed. naproxen sodium (ANAPROX) 220 mg tablet Take 220 mg by mouth twice daily with meals. As needed No current facility-administered medications for this visit. Allergies As of Date: 09/04/2023 (No Known Allergies) Fully Assessed 09/04/2023 Allergies and current medication updated:Yes EXAM: BP 132/90 Wt 282 lb 6.4 oz (128.1kg) LMP 08/20/2023 GENERAL: pleasant, female in no apparent distress ASSESSMENT AND PLAN: 28yo female with AUB and endometrial polyp on US Discussed R/B/A of treatment options and patient wishes to proceed with hysteroscopy, D&C and polypectomy. She desires in the next year so declines Mirena IUD placement. Medical Decision Making: Problems: Moderate: New problem with uncertain prognosis Risk: Low: Low risk from testing/treatment Medical Decision Making Level: 3 - Low Nir Anne MD documented in this encounter [facility] 09-04-2023 Instructions s Donna Siddiqui - 09/04/2023 1:36 PM EST YOUR RECOVERY After your biopsy you may have: Vaginal bleeding (less than a normal menstrual period) Mild cramping Do NOT put anything in the vagina for 1 week after your endometrial biopsy. This includes: tampons douches and refraining from having sexual intercourse If you have any discomfort, you may take an over the counter pain medication (motrin, advil, ibuprofen, tylenol, etc). If this does not relieve your discomfort, contact the office. It is okay to wear a sanitary pad until the discharge and spotting stops. RISKS Although problems seldom occur with endometrial biopsies, there can be some complications. You may feel faint during and shortly after the procedure as well as have some bleeding after the procedure. There is also a risk of infection after the procedure. These complications are rare and can be easily treated. You should contact you doctor is you have any of the following: Heavy bleeding (more than your normal period) Bleeding with clots Severe abdominal pain Fever (more than 100.4F) Foul smelling vaginal discharge RESULTS We will have the results of your biopsy in 1-2 weeks. If you do not hear the results of your biopsy after 2 weeks, please contact the office for the results. If you have any additional questions or concerns please do not hesitate to contact the office. documented in this encounter [facility] 09-01-2023 Note HNO ID: [id number] Author: Mary Samuels RDMS Service: ? Author Type: Retread Supervisor Type: Progress Notes Filed: 09/01/2023 9:57 AM Note Text: Radiology Service Progress Note PATIENT NAME: Juan Antonio Guerin DATE OF SERVICE: September 01, 2023 TIME: 9:57 AM PATIENT IDENTITY VERIFICATION COMPLETED USING TWO (2) IDENTIFIERS: Name and Date of confirmed by patient verbally. FALL SCREENING: Has the patient had 2 falls in the last year or 1 fall with injury or currently using an Ambulatory Assistive Device (Walker, Cane, Wheelchair, Crutches, etc.)? No PATIENT GENDER DATA: Female. status: : No status: NO. PATIENT RELEVANT IMPLANT DATA REVIEWED: Not Applicable RADIOLOGY DEPARTMENT: Ultrasound PERIPHERAL IV DATA: Not applicable SIGNED BY: Mary Samuels RDMS September 01, 2023 9:57 AM [facility] 09-01-2023 History of Present illness Narrative Radiology Service Progress Note PATIENT NAME: Juan Antonio Guerin DATE OF SERVICE: September 01, 2023 TIME: 9:57 AM PATIENT IDENTITY VERIFICATION COMPLETED USING TWO (2) IDENTIFIERS: Name and Date of confirmed by patient verbally. FALL SCREENING: Has the patient had 2 falls in the last year or 1 fall with injury or currently using an Ambulatory Assistive Device (Walker, Cane, Wheelchair, Crutches, etc.)? No PATIENT GENDER DATA: Female. status: : No status: NO. PATIENT RELEVANT IMPLANT DATA REVIEWED: Not Applicable RADIOLOGY DEPARTMENT: Ultrasound PERIPHERAL IV DATA: Not applicable SIGNED BY: Mary Samuels RDMS September 01, 2023 9:57 AM documented in this encounter [facility] 08-28-2023 Evaluation + Plan note Associated Problem(s): Migraine with aura, not intractable, without status migrainosus Reviewed with patient symptoms are consistent with migraine with complex aura. Neurologic examination and imaging are normal. Reviewed MRI brain does not show any concerning features. Patient voiced understanding. Treatment options reviewed including preventative medication and rescue medication for headaches without neurologic symptoms. Discussed amitriptyline 10 mg p.o. nightly and Topamax 25 mg p.o. nightly including possible side effects of dizziness, drowsiness, numbness tingling, weight loss and kidney stones. Patient voiced understanding. Patient wished to proceed with Topamax 25 mg p.o. nightly. Gwky-usy-ojarhgb preventative medications such as magnesium, riboflavin and feverfew discussed as options. For rescue patient will try sumatriptan 100 mg tablets at onset of headache without neurologic symptoms. Dosing restrictions reviewed. If patient is having a migraine with aura [id number]-[id number] medications are indicated. Plan to follow-up in 3 months for progress. Discussed tracking of migraines with my migraine Mich which also may help with trigger identification. Patient voiced understanding. I personally spent 35 minutes on this encounter today, time spent included direct patient time, chart note or record review, independent test interpretation, communication to referring or other collaborating physicians, and medication management [facility] 08-28-2023 Miscellaneous Notes Associated Problem(s): Migraine with aura, not intractable, without status migrainosus Reviewed with patient symptoms are consistent with migraine with complex aura. Neurologic examination and imaging are normal. Reviewed MRI brain does not show any concerning features. Patient voiced understanding. Treatment options reviewed including preventative medication and rescue medication for headaches without neurologic symptoms. Discussed amitriptyline 10 mg p.o. nightly and Topamax 25 mg p.o. nightly including possible side effects of dizziness, drowsiness, numbness tingling, weight loss and kidney stones. Patient voiced understanding. Patient wished to proceed with Topamax 25 mg p.o. nightly. Lnya-hje-dduecju preventative medications such as magnesium, riboflavin and feverfew discussed as options. For rescue patient will try sumatriptan 100 mg tablets at onset of headache without neurologic symptoms. Dosing restrictions reviewed. If patient is having a migraine with aura gwcc-xno-cbmkebk medications are indicated. Plan to follow-up in 3 months for progress. Discussed tracking of migraines with my migraine Mich which also may help with trigger identification. Patient voiced understanding. I personally spent 35 minutes on this encounter today, time spent included direct patient time, chart note or record review, independent test interpretation, communication to referring or other collaborating physicians, and medication management documented in this encounter [facility] 08-28-2023 History of Present illness Narrative [facility] [address] [address] [address] [facility] [address] Dept: [phone] Dept Loc: [phone] Subjective: Juan Antonio Guerin is a 28 y.o. female here 08/28/23 for Establish Care (Pt referred by . Pt c/o migraines for appox 1 year. Pt had episode where she lost vision, went to [facility]. Pt has had 3 more migraines since event. 2 with Aura an most recent vision change, numbness/tingling in both arms. 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 Pt also c/o worse headaches starting at back of head lasting 3-4 hours. ) being seen by Fredi De Santiago MD. HPI : Patient sent for evaluation of migraine, hospital follow-up and concern of MRI brain findings. Onset 09/03/2023, not triggers, was at work and noticed rt roselia-field visual loss, no numbness or headache lasting 2 hours. Concern of stroke: [facility]: Neurology notes inpatient 09/08/2022 reviewed. [place] to be migraine with aura. MRI brain showed minimal small vessel change, not acute, she has questions stating what the MRI findings mean. Has continued to have episodic headaches some with neurologic changes. Frequency 1 per week of severe pressure sensation. Has had additional neurologic symptoms with headache 3 times year total. Overall headaches are severe 2-3 times per month with duration of 3 to 4 hours. Mother with headache of unclear classification. Migraines are increasing in frequency and severity. Duration 3 to 5 hours. Onset of pressure of head, eyes feel like they are bulging, hurts to move head, 45 minutes into migraines she sometimes develops numbness of both hands/clumsiness over 30 minutes, speech expressive disturbance. She will go to sleep and then symptoms have resolved in regards to pain and neurologic changes by the next morning, however , she notes cloudy thinking, drove the wrong direction to doctor today after migraine. Pain is located behind eyes and back of head and neck and described as throbbing, pressure and tight. Caffeine use 1 cup of coffee per day. Sleep 6 hours per night. Triggers lack of sleep and stress. Associated symptoms include sore stiff neck, dizziness, tingling poor concentration and memory. Most comfortable with massage or pressure on the scalp. Treatments Tylenol with mild benefit. Advil not beneficial. 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 Ophthalmology 11/2022 with normal exam. Trouble with thread of conversation. Stopped control due to concern of migraine and hormonal treatment. Cardiology notes 08/08/2020 reviewed. Treated with atenolol without benefit. Midodrine cause nausea. Chronic tachycardia with any exertion, shortness of breath and palpitations. Recurrent syncopal episodes tend to occur with minimal physical exertion and no injuries. Loss of consciousness 7 to 8 minutes. Confused with regaining alertness. TSH was normal. Wearing compression stockings. No alcohol and minimal caffeine use. Repeat tilt 08/08/2020 negative for syncope with stable blood pressure and heart rates. Not consistent with POTS. PCP labs Lyme disease, TSH, CBC, thyroid, B12 and vitamin D, vitamin D was low and started on supplementation 09/08/2022 inpatient admission CTA of the head and neck negative. MRI stroke protocol brain 09/03/2023 with no acute infarct. There are few punctate T2 hyperintensities in the bilateral frontal white matter. Images personally reviewed with patient 08/28/2023 on epic and I agree with the interpretation. Specifically there are 2 tiny right frontal punctate T2 hyperintensities. Brainstem and corpus callosum are normal. LDL is 120, A1c 5.5 CBC, BMP and UA normal/negative and urine test negative 2018 tilt table with vasovagal response to sublingual nitroglycerin. Event monitor without arrhythmia. Second tilt table [facility] negative.EP studies 09/08/2018 negative. Objective: BP 122/88 Pulse 85 Wt 127.7 kg (281 lb 8 oz) BMI 42.80 kg/m No Known Allergies Current Outpatient Medications Medication Sig Dispense Refill albuterol 90 mcg/actuation inhaler Inhale . ergocalciferol (ERGOCALCIFEROL) 1,250 mcg (50,000 unit) capsule Take 1 (one) capsule (50,000 Units total) by mouth over 168 hr . ibuprofen (ADVIL,MOTRIN) 200 MG tablet Take 2 (two) tablets (400 mg total) by mouth every 6 to 8 hours as needed (back and hip pain) . metFORMIN (GLUCOPHAGE-XR) 500 MG 24 hr tablet Take 2 (two) tablets (1,000 mg total) by mouth daily with dinner . SUMAtriptan (IMITREX) 100 MG tablet Take 1 po at onset of migraine, repeat 1 in 2 hours if needed, max 200 mg/24 hours, max 2 days per week. . 9 tablet 5 topiramate (TOPAMAX) 25 MG tablet Take one po qhs. . 30 tablet 5 No current facility-administered medications for this visit. Past Medical History: Diagnosis Date Sinus tachycardia Vasovagal syncope Past Surgical History: Procedure Laterality Date ABLATION WITH PHENOL BILAT. BREAST REDUCTION, FREE NIPPLE PROCEDURE CHOLECYSTECTOMY EP - DIAGNOSTIC N/A 01/02/2018 Procedure: Tilt Table; Surgeon: Omid Sharma MD; Location: [facility] EP LAB; Service: Cardiovascular EP STUDY N/A 09/08/2018 Procedure: EP Study Possible Complex Ablation SVT with CARTO; Surgeon: Alfred Sainz MD; Location: [facility] EP LAB; Service: Cardiovascular TONSILLECTOMY WISDOM TOOTH EXTRACTION Family History Problem Relation Age of Onset Multiple sclerosis Mother Coronary artery disease Father Social History Socioeconomic History Marital status: Single Tobacco Use Smoking status: Never Smokeless tobacco: Never Vaping Use Vaping Use: Never used Substance and Sexual Activity Alcohol use: Yes Comment: soc Drug use: No Social History Substance and Sexual Activity Drug Use No Social History Tobacco Use Smoking Status Never Smokeless Tobacco Never ROS Physical Exam Vitals and nursing note reviewed. Constitutional: Appearance: She is well-developed. HENT: Head: Normocephalic and atraumatic. Eyes: Extraocular Movements: EOM normal. Pupils: Pupils are equal, round, and reactive to light. Cardiovascular: Rate and Rhythm: Normal rate. Pulmonary: Effort: Pulmonary effort is normal. Musculoskeletal: General: Normal range of motion. Cervical back: Normal range of motion and neck supple. Skin: General: Skin is warm. Neurological: Mental Status: She is alert and oriented to person, place, and time. Coordination: Knczew-Phjk-Idefml Test normal. Gait: Gait is intact. Tandem walk normal. Deep Tendon Reflexes: Reflex Scores: Bicep reflexes are 2+ on the right side and 2+ on the left side. Brachioradialis reflexes are 2+ on the right side and 2+ on the left side. Patellar reflexes are 2+ on the right side and 2+ on the left side. Psychiatric: Mood and Affect: Mood normal. Speech: Speech normal. Neurologic Exam Mental Status Oriented to person, place, and time. Follows 1 step commands. Attention: normal. Concentration: normal. Speech: speech is normal Level of consciousness: alert Knowledge: good. Able to name object. Able to read. Able to repeat. Able to write. Normal comprehension. Cranial Nerves CN II Visual gorman full to confrontation. Right visual field deficit: none Left visual field deficit: none CN III, IV, Pupils are equal, round, and reactive to light. Extraocular motions are normal. Right pupil: Size: 4 mm. Shape: regular. Reactivity: brisk. Consensual response: intact. Accommodation: intact. Left pupil: Size: 4 mm. Shape: regular. Reactivity: brisk. Consensual response: intact. Accommodation: intact. CN III: no CN III palsy CN : no CN palsy Nystagmus: none Diplopia: none Ophthalmoparesis: none Upgaze: normal Downgaze: normal Conjugate gaze: present Vestibulo-ocular reflex: present CN V Facial sensation intact. Right facial sensation deficit: none Left facial sensation deficit: none Right corneal reflex: normal Left corneal reflex: normal Jaw jerk: normal CN VII Facial expression full, symmetric. Right facial weakness: none Left facial weakness: none CN VIII CN VIII normal. Hearing: intact CN IX, X CN IX normal. Palate: symmetric CN XI CN XI normal. Right sternocleidomastoid strength: normal Left sternocleidomastoid strength: normal Right trapezius strength: normal Left trapezius strength: normal CN XII CN XII normal. Tongue: not atrophic Fasciculations: absent Tongue deviation: none Motor Exam Muscle bulk: normal Overall muscle tone: normal Right arm tone: normal Left arm tone: normal Right arm pronator drift: absent Left arm pronator drift: absent Right leg tone: normal Left leg tone: normal Strength Right neck flexion: 5/5 Left neck flexion: 5/5 Right neck extension: 5/5 Left neck extension: 5/5 Right deltoid: 5/5 Left deltoid: 5/5 Right biceps: 5/5 Left biceps: 5/5 Right triceps: 5/5 Left triceps: 5/5 Right wrist extension: 5/5 Left wrist extension: 5/5 Right interossei: 5/5 Left interossei: 5/5 Right iliopsoas: 5/5 Left iliopsoas: 5/5 Right quadriceps: 5/5 Left quadriceps: 5/5 Right anterior tibial: 5/5 Left anterior tibial: 5/5 Sensory Exam Light touch normal. Gait, Coordination, and Reflexes Gait Gait: normal Coordination Finger to nose coordination: normal Tandem walking coordination: normal Tremor Resting tremor: absent Intention tremor: absent Reflexes Right brachioradialis: 2+ Left brachioradialis: 2+ Right biceps: 2+ Left biceps: 2+ Right patellar: 2+ Left patellar: 2+ Right union organiser: 2+ Left union organiser: 2+ Right Bradley: absent Left Bradley: absent No results found for this or any previous visit (from the past 1008 hour(s)). Assessment and Plan: Problem List Items Addressed This Visit Cardiovascular and Mediastinum Migraine with aura, not intractable, without status migrainosus - Primary Reviewed with patient symptoms are consistent with migraine with complex aura. Neurologic examination and imaging are normal. Reviewed MRI brain does not show any concerning features. Patient voiced understanding. Treatment options reviewed including preventative medication and rescue medication for headaches without neurologic symptoms. Discussed amitriptyline 10 mg p.o. nightly and Topamax 25 mg p.o. nightly including possible side effects of dizziness, drowsiness, numbness tingling, weight loss and kidney stones. Patient voiced understanding. Patient wished to proceed with Topamax 25 mg p.o. nightly. Szyo-ipr-[id number] preventative medications such as magnesium, riboflavin and feverfew discussed as options. For rescue patient will try sumatriptan 100 mg tablets at onset of headache without neurologic symptoms. Dosing restrictions reviewed. If patient is having a migraine with aura ipwz-gor-crrwycx medications are indicated. Plan to follow-up in 3 months for progress. Discussed tracking of migraines with my migraine Mich which also may help with trigger identification. Patient voiced understanding. I personally spent 35 minutes on this encounter today, time spent included direct patient time, chart note or record review, independent test interpretation, communication to referring or other collaborating physicians, and medication management Relevant Medications topiramate (TOPAMAX) 25 MG tablet SUMAtriptan (IMITREX) 100 MG tablet Respectfully; Fredi De Santiago documented in this encounter [facility] 08-26-2023 Note HNO ID: [id number] Author: Nir Anne MD Service: ? Author Type: Physician Type: Progress Notes Filed: 08/26/2023 11:49 AM Note Text: Juan Antonio Guerin is a 28 year old female who presents for problem visit. HPI: 7 weeks ago patient had a normal menses. 2 weeks later she had cramping followed by bleeding that lasted about a week. Then she had a kind of normal menses . Patient states that the cramps with this bleeding has been unbearable and the bleeding has been heavy. In the past she has skipped menses but never had intermenstrual bleeding like this. 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 Comments: Sexual Activity: Yes; Male Contraception: Condom PAST MEDICAL HISTORY Diagnosis Date Heart palpitations Inappropriate sinus tachycardia Migraine with visual aura 08/2022 one episode - [facility] neurology letter in scanned documents Vasovagal syncope PAST SURGICAL HISTORY Procedure Laterality Date GALLBLADDER/EF 10/20/2010 NEXPLANON INSERTION Left 05/01/2021 removed NEXPLANON REMOVAL 08/2021 REDUCTION OF LARGE BREAST 10/20/2012 TONSILLECTOMY HX 10/20/2003 FAMILY HISTORY Adopted: Yes Problem Relation Age of Onset other (ms) Mother Heart Father quintuple bybass Cancer Father testicular Obesity Sister Obesity Sister Obesity Maternal Grandmother Obesity Maternal Grandfather Social History Tobacco Use Smoking status: Never Smokeless tobacco: Never Vaping Use Vaping Use: Never used Substance Use Topics Alcohol use: Yes Comment: occasional Drug use: No Current Outpatient Medications Medication Sig metFORMIN ER (GLUCOPHAGE XR) 500 mg 24 hr tablet Take 2 tablets by mouth daily with dinner. buPROPion SR (WELLBUTRIN SR) 150 mg 12 hr tablet Take 1 tablet by mouth twice daily. ergocalciferol 50,000 unit capsule (VITAMIN D2, DRISDOL) Take 1 capsule by mouth one time a week. albuterol HFA (PROVENTIL HFA, VENTOLIN HFA) 90 mcg/actuation inhaler Inhale as instructed. naproxen sodium (ANAPROX) 220 mg tablet Take 220 mg by mouth twice daily with meals. As needed Drospirenone-Ethinyl Estradiol (BENJIE, 28,) 3-0.02 mg per tablet Take 1 tablet by mouth once daily. (Patient not taking: Reported on 08/26/2023) No current facility-administered medications for this visit. Allergies As of Date: 08/26/2023 (No Known Allergies) Fully Assessed 08/26/2023 Allergies and current medication updated:Yes EXAM: BP 138/82 Wt 284 lb (128.8kg) LMP 08/20/2023 GENERAL: pleasant, female in no apparent distress ASSESSMENT AND PLAN: 28yo female with AUB Check pelvic US Follow up for EMB AND pelvic exam Discussed R/B/A of treatment options. Patient declines Mirena IUD as is considering in the next 1.5 years. She is not an ocp candidate due to migraine with auras. Medical Decision Making: Problems: Moderate: New problem with uncertain prognosis Data: Unique test(s) ordered: 3+ Risk: Low: Low risk from testing/treatment Medical Decision Making Level: 4 - Moderate Nir Anne MD [facility] 08-26-2023 History of Present illness Narrative Juan Antonio Guerin is a 28 year old female who presents for problem visit. HPI: 7 weeks ago patient had a normal menses. 2 weeks later she had cramping followed by bleeding that lasted about a week. Then she had a kind of normal menses . Patient states that the cramps with this bleeding has been unbearable and the bleeding has been heavy. In the past she has skipped menses but never had intermenstrual bleeding like this. 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 Comments: Sexual Activity: Yes; Male Contraception: Condom PAST MEDICAL HISTORY Diagnosis Date Heart palpitations Inappropriate sinus tachycardia Migraine with visual aura 08/2022 one episode - [facility] neurology letter in scanned documents Vasovagal syncope PAST SURGICAL HISTORY Procedure Laterality Date GALLBLADDER/EF 10/20/2010 NEXPLANON INSERTION Left 05/01/2021 removed NEXPLANON REMOVAL 08/2021 REDUCTION OF LARGE BREAST 10/20/2012 TONSILLECTOMY HX 10/20/2003 FAMILY HISTORY Adopted: Yes Problem Relation Age of Onset other (ms) Mother Heart Father quintuple bybass Cancer Father testicular Obesity Sister Obesity Sister Obesity Maternal Grandmother Obesity Maternal Grandfather Social History Tobacco Use Smoking status: Never Smokeless tobacco: Never Vaping Use Vaping Use: Never used Substance Use Topics Alcohol use: Yes Comment: occasional Drug use: No Current Outpatient Medications Medication Sig metFORMIN ER (GLUCOPHAGE XR) 500 mg 24 hr tablet Take 2 tablets by mouth daily with dinner. buPROPion SR (WELLBUTRIN SR) 150 mg 12 hr tablet Take 1 tablet by mouth twice daily. ergocalciferol 50,000 unit capsule (VITAMIN D2, DRISDOL) Take 1 capsule by mouth one time a week. albuterol HFA (PROVENTIL HFA, VENTOLIN HFA) 90 mcg/actuation inhaler Inhale as instructed. naproxen sodium (ANAPROX) 220 mg tablet Take 220 mg by mouth twice daily with meals. As needed Drospirenone-Ethinyl Estradiol (BENJIE, 28,) 3-0.02 mg per tablet Take 1 tablet by mouth once daily. (Patient not taking: Reported on 08/26/2023) No current facility-administered medications for this visit. Allergies As of Date: 08/26/2023 (No Known Allergies) Fully Assessed 08/26/2023 Allergies and current medication updated:Yes EXAM: BP 138/82 Wt 284 lb (128.8kg) LMP 08/20/2023 GENERAL: pleasant, female in no apparent distress ASSESSMENT AND PLAN: 28yo female with AUB Check pelvic US Follow up for EMB & pelvic exam Discussed R/B/A of treatment options. Patient declines Mirena IUD as is considering in the next 1.5 years. She is not an ocp candidate due to migraine with auras. Medical Decision Making: Problems: Moderate: New problem with uncertain prognosis Data: Unique test(s) ordered: 3+ Risk: Low: Low risk from testing/treatment Medical Decision Making Level: 4 - Moderate Nir Anne MD documented in this encounter [facility] 03-13-2023 Note HNO ID: [id number] Author: Leroy Albert APRN.CNP Service: ? Author Type: Nurse Practitioner Type: Progress Notes Filed: 03/13/2023 6:05 AM Note Text: This is an Express Care eVisit note for Juan Antonio Guerin eVisit/Questionnaire reviewed The chief complaint for the visit - Patient presents with: Ear Problem Recommendations/Treatment plan - See My Chart Message to patient Patient referred for in person exam. Total time spent on evisit: <5 minutes Leroy Albert APRN.CNP [facility] 03-07-2023 Note HNO ID: [id number] Author: Natali Brunson APRN.CNP Service: ? Author Type: Nurse Practitioner Type: Progress Notes Filed: 03/07/2023 5:07 PM Note Text: INITIAL WEIGHT MANAGEMENT CONSULT: Patient Summary: Juan Antonio Guerin is a 28 year old female with obesity who presents for an initial evaluation of overweight/obesity and is interested in combination of behavioral and pharmacological and surgery. 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 Motivation for seeking treatment for the disease of overweight/obesity : job opportunities and health Goal weight: 180 Lowest recall weight: 165 Highest recall weight: 285 Patient identified barriers to weight loss: job - eats when bored and disrupted schedule. 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 WEIGHT GRAPH: Medications: Metformin Weight Promoting Medications: Other recently removed Nexplanon Diet: Works 24 hour shift every 3rd day with disrupted sleep. Schedule depends on timing of squad runs B - 0630 - skip. Light sugar sweet tea S - none L - 1230 sandwich and chips OR grilled chicken wrap with cheese and Ranch with chips S - sometimes chips OR yogurt D - 1800 red meat or chicken, vegetables low-carb or corn in the summer, potato/pasta/malay fries/rice Dessert [id number] - cake or pie, ice cream. Craves sweets. Tries not to eat after 2100 Fluids: 16 oz Light sugar sweet tea x 1, water, 20 oz Pepsi at night with dinner Quality of diet: 24hr recall suggests somewhat healthy diet. Characterization of diet:Unstructured, unhealthy snacking, excessive cravings, evening snacking, and skip meals. Primer Boxer of impaired eating habits:excessive hunger, lack of satiety due to craving for sweets, mindlessness and boredom if at work Eating Disorder no Preferred foods: protein - dark meat chicken, red meat, pork; all veg except cauliflower and brussel sprouts, fruits - all Diet History: Past weight loss attempts? self-directed and exercise program Exercise: Regular exercise: yes 1.5 hours every 3 days with life trainer at work - Core and high intensity Strength/resistance exercise:yes Barriers to regular exercise? yes time Work-related activity:depends on shift. Gym Membership: no Activity Tracker: no ?Sleep: Duration: 8 hours when off; disrupted 4-5 hours when working ROMA NO ; CPAP NO Sleep study inconclusive a few years ago ??Stress: Stress yes :, Cause:Work - depends on shift Obesity Related Comorbidities: Prior Weight Loss Surgery:No PAST MEDICAL HISTORY Diagnosis Date Heart palpitations Inappropriate sinus tachycardia Migraine with visual aura 08/2022 one episode - [facility] neurology letter in scanned documents Vasovagal syncope PAST SURGICAL HISTORY Procedure Laterality Date GALLBLADDER/EF 10/20/2010 NEXPLANON INSERTION Left 05/01/2021 removed NEXPLANON REMOVAL 08/2021 REDUCTION OF LARGE BREAST 10/20/2012 TONSILLECTOMY HX 10/20/2003 FAMILY HISTORY Problem Relation Age of Onset other (ms) Mother Heart Father quintuple bybass Cancer Father testicular Social History Tobacco Use Smoking status: Never Smokeless tobacco: Never Vaping Use Vaping Use: Never used Substance Use Topics Alcohol use: Yes Comment: occasional Drug use: No Obesity ROS/ FHx GEN: Fatigue:yes CV: h/o palpitations/cardiac arrhythmia Sinus Tachycardia with rate of 190-200 with exercise - DX testing done, no meds now Chest pain: no HTN: no PULM: Asthma:yes exercise induced, no need for inhaler GI: GERD:no ; Gallstones:no ; Fatty liver disease:no Pancreatitis: yes prior to cholecystectomy MSK: Joint Pain:yes knees and back : Nephrolithiasis: no Symptoms of PCOS: yes NEURO: Migraines/FOSS: yes with aura ; H/o seizures: no Glaucoma:no; Cataracts no Symptoms of or History of pseudotumor cerebri:no Family or personal History of MEN2 or Medullary thyroid cancer: no PE LMP 12/15/2022 (Approximate) Weight Circumference: 173 cm GENERAL: Female in NAD. Mixed central and gluteofemoral adiposity. SKIN: acanthosis nigricans yes , Skin tags: yes Hirsutism: yes striae Y HEENT: PERRL, No supraclavicular adiposity. No dorsal adiposity. RESPIRATORY: CBTA CARDIAC: RRR ABDOMEN: pannus; EXTREMITIES: peripheral edema: yes Results: reviewed with the patient Appointment on 12/23/2022 Component D (more content not included)... [facility] 02-10-2023 Note HNO ID: [id number] Author: Licha Block RD Service: ? Author Type: Registered Dietitian Type: Progress Notes Filed: 02/10/2023 2:35 PM Note Text: [facility] Nutrition Therapy: Virtual Consult - Initial Assessment I have communicated my name and active licensure. The patient?s identity and physical location were verified at the time of this visit. Either the patient or their legal contact representative has been informed of the risks and benefits of -- and alternatives to -- treatment through a remote evaluation and consents to proceed with the evaluation remotely. Nutrition Diagnosis: Overweight/obesity, related to, food/nutrition - related knowledge deficit, as evidenced by BMI above normative standard for age and gender. RECOMMENDED MALNUTRITION DIAGNOSIS: NO MALNUTRITION IDENTIFIED NUTRITION CARE PLAN Nutrition Intervention 02/10/2023: Modify type and amount of foods consumed for meals and snacks 1. Read Nutritional Guidelines Section of Your Guide to Surgery by next session [email or web address] 2. Do not skip meals. 3. Use protein shake 1x per day to replace any skipped meals or for breakfast. Aim for shakes ~150-200 calories, ~15-20 grams of protein, <5 grams of total sugar. Here are a few examples of approved options for the 2 week pre-op liquid diet: Slim Fast Advanced Nutrition, Callahan Breakfast Essentials Light Start mixed with fat free milk, Atkins, Boost Glucose Control, Owyn 4. Use the Healthy Plate Method of portion control for lunch and dinner 4 oz lean meat (fish, chicken, pork tenderloin, turkey, seafood, eggs/cheese) 1/2 plate non starchy vegetables (salad, greens, cabbage, spinach, brussels sprouts, broccoli, carrots, celery, peppers, green beans, cauliflower) 1 cup starch/starchy vegetables (corn, peas, beans, winter squash, sweet potato, brown rice, whole grain pasta, whole grain bread products, quinoa) 5. Physical activity: Aim for 150 minutes of physical activity per week. Include 10-20 minutes of strength/resistance exercise 2-3x/week. 6. Drink 64 ounces per day water. Fluids should follow these guidelines: No carbonation, no caffeine, no calories, no alcohol. 7. Start to explore post surgery bariatric vitamins/minerals: Daily multivitamin, iron 45-60 mg, calcium citrate w/ Vit D 8671-2393 mg, Vit B12 500 mcg sublingual pill or liquid, Vit D3 3000 international unit(s), B complex with 75-100 mg thiamin *It is ok to take a combination bariatric vitamin to limit pill volume. Here are a few options to consider: - Bariatric Fusion: 4 Complete Multivitamin chewables per day OR 1 Multivitamin capsule and 5238-2527 mg calcium citrate per day OR 2 Multivitamin soft chews per day + 3 calcium citrate soft chews + 1 iron soft chew per day www.[email or web address] - Procare Health: 1 Bariatric Multivitamin w/ iron (capsule or chewable) and 5812-3565 mg calcium citrate per day www.AliveCorareBe[employer] - Bariatric Choice: 1 Once Daily Bariatric Multivitamin capsule and 2911-7950 mg calcium citrate per day OR 4 All-in-One Bariatric Multivitamin chewables per day www.bariatricchoastamuse company, ltd..Pipefish - Bariatric Advantage: 1 Ultra Solo multivitamin w/ iron (chewable or capsule) OR 2 chewable Advanced Multi EA w/ iron and 8424-2792 mg calcium citrate per day OR 2 Multi Chewy Bites and 8286-6166 mg calcium citrate and 45-60 mg iron per day www.bariatricadCesscorp World Wide.Pipefish - Celebrate: 2 Multi-Complete (chewable or capsule) OR 1 CelebrateOne Multivitamin capsule and 3658-8628 mg calcium citrate per day OR 2 Multivitamin soft chews + 3 calcium citrate soft chews + 1 iron soft chew per day [email or web address] - Bariatric Pal: 1 Multivitamin One (chewable or capsule) and 6501-9809 mg calcium citrate per day OR 4 All-in-One Multivitamin chewables per day www.Avocado Entertainmentbariatricpal.Pipefish/collec tinely/bariatric-vitamins - Barilife: 1 Just One Bariatric Multivitamin w/ iron (chewable or capsule) and 1440-7236 mg calcium citrate per day www.Wholeshare - Barimelts: 2 Multivitamin w/ iron tablets and 7477-5917 mg calcium citrate per day www.[email or web address].Pipefish Take multivitamin with iron 2 hours apart from calcium citrate, and take each dose of calcium 4 hours apart from each other Pre-op goal weight: 262 pounds Protein needs: 89 gm per day Nutrition Monitoring AND Evaluation: 1-2 lbs wt loss/week Need for Follow up: 1 month, scheduled for 03/18 @ 2pm Patient presents for initial nutrition consult in preparation for bariatric surgery. Patient is interested in LS[facility] (Dr. Kathleen). Height and weight discussed today. Presents with Class III obesity, Body mass index is 41.51 kg/m?. Significant medical comorbidities include PCOS. Patient has realistic (34 % TWL) weight loss expectations, anticipating weight loss of 93 lbs., with desired weight of <180 lbs. following surgery. (more content not included)... [facility] 01-09-2023 Note HNO ID: [id number] Author: Natali Brunson APRN.FLEXIBLE MACHINING SYSTEM MACHINIST Service: ? Author Type: Nurse Practitioner Type: Progress Notes Filed: 01/09/2023 12:42 PM Note Text: Fruit Or Nut Crops Farm Manager offered: Patient declines. Juan Antonio Guerin is a 28 year old female who presents for problem visit discuss diagnostic testing. HPI: Juan Antonio here to discuss diagnostic testing results consistent with diagnosis of PCOS. Menses are every 3 months since Nexplanon removed and she has developed hirsutism, significant weight gain. Reviewed the pelvic ultrasound shows bilateral polycystic ovaries. Lab results are with an normal limits except that testosterone is a little elevated and vitamin D level is low. Weekly vitamin D supplementation has already been ordered and repeat labs in 12 weeks. She continues to be interested in bariatric weight loss and has started the process at [facility]. 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 History Comments: Sexual Activity: Yes; Male Contraception: Condom PAST MEDICAL HISTORY Diagnosis Date Heart palpitations Inappropriate sinus tachycardia Vasovagal syncope PAST SURGICAL HISTORY Procedure Laterality Date GALLBLADDER/EF 10/20/2010 NEXPLANON INSERTION Left 05/01/2021 removed NEXPLANON REMOVAL 08/2021 REDUCTION OF LARGE BREAST 10/20/2012 TONSILLECTOMY HX 10/20/2003 FAMILY HISTORY Problem Relation Age of Onset other (ms) Mother Heart Father izzy stoddard Cancer Father testicular Social History Tobacco Use Smoking status: Never Smokeless tobacco: Never Vaping Use Vaping Use: Never used Substance Use Topics Alcohol use: Yes Comment: occasional Drug use: No Current Outpatient Medications Medication Sig ergocalciferol 50,000 unit capsule (VITAMIN D2, DRISDOL) Take 1 capsule by mouth one time a week. albuterol HFA (PROVENTIL HFA, VENTOLIN HFA) 90 mcg/actuation inhaler Inhale as instructed. naproxen sodium (ANAPROX) 220 mg tablet Take 220 mg by mouth twice daily with meals. As needed No current facility-administered medications for this visit. Allergies As of Date: 01/09/2023 (No Known Allergies) Fully Assessed 01/09/2023 REVIEW OF SYSTEMS Denies family history of clotting disorders. Denies personal history of DVT, CVD, hypertension. No clear diagnosis of migraine with aura but had stroke symptoms and diagnosed with ophthalmic migraine. Non smoker. Allergies and current medication updated:Yes EXAM: BP 118/76 Wt 282 lb (127.9kg) LMP 12/15/2022 GENERAL: pleasant, female in no apparent distress CHEST: Normal inspiratory effort NEURO: alert and oriented x3,exam grossly non-focal ASSESSMENT/PLAN: 1. PCOS (polycystic ovarian syndrome) - ICD9: 256.4, ICD10: E28.2 -Discussed treatment with MARIBELL -she has had an episode of stroke -like symptoms. Neurology evaluated her when she was in the emergency room and deemed the cause ophthalmic migraine but has had no follow-up since then to determine if she has pain with aura. She will contact neurologist before further discussing treatment with MARIBELL. - Also discussed treatment with metformin. Discussed side effects and how to increase dose. - - discussed with pt- review of PCOS with signs and symptoms. Increased risk of DMT2, CAD, infertility. Treatment discussed: weight loss to restore ovulatory cycles and reduce androgen concentrations, exercise, cyclic medroxyprogesterone to induce menses. - Given written information on PCOS and nutrition resources. - METFORMIN ER 500 MG TABLET,EXTENDED RELEASE 24 HR 2. Class 3 severe obesity with body mass index (BMI) of 40.0 to 44.9 in adult, unspecified obesity type, unspecified whether serious comorbidity present (HCC) - ICD9: 278.01, V85.41, ICD10: E66.01, Z68.41 - She has started process for bariatric surgery - see above. Follow-up as needed. She will notify me of neurology recommendations. Natali Brunson APRN.SHERRY Medical Decision Making: Problems: Moderate: 2+ stable chronic illnesses Risk: Moderate: Drug management Medical Decision Making Level: 4 - [facility] 12-27-2022 Note HNO ID: [id number] Author: Mary Samuels RDMS Service: ? Author Type: Retread Supervisor Type: Progress Notes Filed: 12/27/2022 11:09 AM Note Text: Radiology Service Progress Note PATIENT NAME: Juan Antonio Guerin DATE OF SERVICE: December 27, 2022 TIME: 11:08 AM PATIENT IDENTITY VERIFICATION COMPLETED USING TWO (2) IDENTIFIERS: Name and Date of confirmed by patient verbally. FALL SCREENING: Has the patient had 2 falls in the last year or 1 fall with injury or currently using an Ambulatory Assistive Device (Walker, Cane, Wheelchair, Crutches, etc.)? No PATIENT GENDER DATA: Female. status: : No status: NO. PATIENT RELEVANT IMPLANT DATA REVIEWED: Not Applicable RADIOLOGY DEPARTMENT: Ultrasound PERIPHERAL IV DATA: Not applicable SIGNED BY: Mary Samuels RDMS December 27, 2022 11:08 AM [facility] 12-27-2022 History of Present illness Narrative Radiology Service Progress Note PATIENT NAME: Juan Antonio Guerin DATE OF SERVICE: December 27, 2022 TIME: 11:08 AM PATIENT IDENTITY VERIFICATION COMPLETED USING TWO (2) IDENTIFIERS: Name and Date of confirmed by patient verbally. FALL SCREENING: Has the patient had 2 falls in the last year or 1 fall with injury or currently using an Ambulatory Assistive Device (Walker, Cane, Wheelchair, Crutches, etc.)? No PATIENT GENDER DATA: Female. status: : No status: NO. PATIENT RELEVANT IMPLANT DATA REVIEWED: Not Applicable RADIOLOGY DEPARTMENT: Ultrasound PERIPHERAL IV DATA: Not applicable SIGNED BY: Mary Samuels RDMS December 27, 2022 11:08 AM documented in this encounter [facility] 12-23-2022 Note HNO ID: [id number] Author: Donna Dumont Ma Service: ? Author Type: ? Type: Progress Notes Filed: 12/23/2022 9:57 AM Note Text: Patient identified by name and date of . Juan Antonio Guerin is here for her HPV 9 vaccination, injection # three of the series. Patient ?No Gardasil injection was given without incident. See immunizations for details of immunizations administered today. VIS sheet provided: Yes Patient advised to follow up in Series completed Provider Natali Brunson CNP was present in office at time of injection. [facility] 12-23-2022 Note HNO ID: [id number] Author: Natali Brunson APRN.CNP Service: ? Author Type: Nurse Practitioner Type: Progress Notes Filed: 12/24/2022 1:08 PM Note Text: Juan Antonio is a 27 year old who presents for an annual gynecologic exam with complaints, irregular menses and concerns about PCOS . Feels intermittently hot and cold and wonders if it is a symptoms of PCOS. Coarse hair to chin the last few years. Menses: every 3 months lasting 4 days.+ Cramping and mood changes Contraception: condoms HPV vaccine:has had 2 in series Last Pap: 04/10/2021 normal HPV: HRHPV positive History of abnormal pap: No Last mammogram: US for breast lump and pain, scar tissue from breast reduction Sexually active: Yes Patient concerns for STD exposure: no History of STDS: None Time with current partner: 1 year Documentation from previous visit of 04/10/2021 was copied and pasted, documentation has been reviewed and edited as necessary for today's visit. 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 History Comments: Sexual Activity: Yes; Male Contraception: Condom, Inserts PAST MEDICAL HISTORY Diagnosis Date Heart palpitations Inappropriate sinus tachycardia Vasovagal syncope PAST SURGICAL HISTORY Procedure Laterality Date GALLBLADDER/EF 10/20/2010 NEXPLANON INSERTION Left 05/01/2021 REDUCTION OF LARGE BREAST 10/20/2012 TONSILLECTOMY HX 10/20/2003 FAMILY HISTORY Problem Relation Age of Onset other (ms) Mother Heart Father Cancer Father testicular SOCIAL HISTORY Social History Tobacco Use Smoking status: Never Smokeless tobacco: Never Vaping Use Vaping Use: Never used Substance Use Topics Alcohol use: Yes Comment: occasional Drug use: No REVIEW OF SYSTEMS Abdomen: No abdominal pain, nausea, vomiting, diarrhea, or constipation. No bloating, early satiety, indigestion, or increased flatulence. Bladder: No dysuria, gross hematuria, urinary frequency, urinary urgency, or incontinence. Breast: No breast lumps, nipple d/c, overlying skin changes, redness or skin retraction. Allergies and current medication updated:Yes EXAM: BP 120/80 Ht 5' 8 (1.73m) Wt 279 lb 3.2 oz (126.6kg) LMP 12/15/2022 BMI 42.46 kg/(m2). GENERAL: pleasant, female in no apparent distress HEENT: Normocephalic, atraumatic, mucus membranes moist, and no lesions NECK: Supple, full range of motion, no adenopathy, and thyroid normal DERMATOLOGY: Normal, without lesions, non-icteric,+hirsutism BREAST: soft, non-tender, symmetric, no dominant mass, normal nipple-areolar complex, no lymphadenopathy, and no nipple discharge s/p breast reduction CHEST: Normal inspiratory effort ABDOMEN: soft, non-tender, no masses, and +adiposity PELVIC: external genitalia normal, normal Bartholin's glands, urethra, [place]'s glands, no vulvar lesions, no cervical lesions, good vaginal support, physiologic discharge present, normal appearing perineal body and perianal region BIMANUAL: uterus normal size, shape and consistency, no adnexal masses, and non-tender RECTOVAGINAL: deferred. NEURO: alert and oriented x3,exam grossly non-focal EXTREMITIES: normal ASSESSMENT/PLAN: 1) Health maintenance: Pap done with reflex HPV. Nutrition, exercise and routine health maintenance exams reviewed. HPV vaccine: will receive 3rd in series today 2. Irregular menstrual cycle - ICD9: 626.4, ICD10: N92.6 - Nexplanon removed 08/2021 - TSH BLD - PROLACTIN BLD - TESTOSTERONE, FREE AND TOTAL - DHEA-S BLD - HYDROXYPROGESTERO-17 - FSH BLD - LUTEINIZING HORMONE - ESTRADIOL-17B BLD - PELVIC US WHI - US FEMALE PELVIS TRANSVAG 4 months ago - Hgba1c 5.5, lipid panel, CBC 3. Hirsutism - ICD9: 704.1, ICD10: L68.0 - TSH BLD - PROLACTIN BLD - TESTOSTERONE, FREE AND TOTAL - DHEA-S BLD - HYDROXYPROGESTERO-17 - FSH BLD - LUTEINIZING HORMONE - ESTRADIOL-17B BLD - PELVIC US WHI - US FEMALE PELVIS TRANSVAG 4. Class 3 severe obesity with body mass index (BMI) of 40.0 to 44.9 in adult, unspecified obesity type, unspecified whether serious comorbidity present (HCC) - ICD9: 278.01, V85.41, ICD10: E66.01, Z68.41 Weight increasing. Given questionnaire to complete - she will consider options and make weight management appointment if desired. - VITAMIN D 25 HYDROXY - IRON + TIBC - FERRITIN BLD - INSULIN ASSAY BLOOD 5) Contraception: condoms. Contraceptive options reviewed and information provided. 6) STD screening: Accepted STD check for Gonorrhea and Chlamydia. 7) Follow up one year or sooner as needed Natali Brunson APRN.SHERRY [facility] 12-23-2022 History of Present illness Narrative Patient identified by name and date of . Juan Antonio Guerin is here for her HPV 9 vaccination, injection # three of the series. Patient ?No Gardasil injection was given without incident. See immunizations for details of immunizations administered today. VIS sheet provided: Yes Patient advised to follow up in Series completed Provider Natali Brunson CNP was present in office at time of injection. Juan Antonio is a 27 year old who presents for an annual gynecologic exam with complaints, irregular menses and concerns about PCOS . Feels intermittently hot and cold and wonders if it is a symptoms of PCOS. Coarse hair to chin the last few years. Menses: every 3 months lasting 4 days.+ Cramping and mood changes Contraception: condoms HPV vaccine:has had 2 in series Last Pap: 04/10/2021 normal HPV: HRHPV positive History of abnormal pap: No Last mammogram: US for breast lump and pain, scar tissue from breast reduction Sexually active: Yes Patient concerns for STD exposure: no History of STDS: None Time with current partner: 1 year Documentation from previous visit of 04/10/2021 was copied and pasted, documentation has been reviewed and edited as necessary for today's visit. 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 History Comments: Sexual Activity: Yes; Male Contraception: Condom, Inserts PAST MEDICAL HISTORY Diagnosis Date Heart palpitations Inappropriate sinus tachycardia Vasovagal syncope PAST SURGICAL HISTORY Procedure Laterality Date GALLBLADDER/EF 10/20/2010 NEXPLANON INSERTION Left 05/01/2021 REDUCTION OF LARGE BREAST 10/20/2012 TONSILLECTOMY HX 10/20/2003 FAMILY HISTORY Problem Relation Age of Onset other (ms) Mother Heart Father Cancer Father testicular SOCIAL HISTORY Social History Tobacco Use Smoking status: Never Smokeless tobacco: Never Vaping Use Vaping Use: Never used Substance Use Topics Alcohol use: Yes Comment: occasional Drug use: No REVIEW OF SYSTEMS Abdomen: No abdominal pain, nausea, vomiting, diarrhea, or constipation. No bloating, early satiety, indigestion, or increased flatulence. Bladder: No dysuria, gross hematuria, urinary frequency, urinary urgency, or incontinence. Breast: No breast lumps, nipple d/c, overlying skin changes, redness or skin retraction. Allergies and current medication updated:Yes EXAM: BP 120/80 Ht 5' 8 (1.73m) Wt 279 lb 3.2 oz (126.6kg) LMP 12/15/2022 BMI 42.46 kg/(m^2). GENERAL: pleasant, female in no apparent distress HEENT: Normocephalic, atraumatic, mucus membranes moist, and no lesions NECK: Supple, full range of motion, no adenopathy, and thyroid normal DERMATOLOGY: Normal, without lesions, non-icteric,+hirsutism BREAST: soft, non-tender, symmetric, no dominant mass, normal nipple-areolar complex, no lymphadenopathy, and no nipple discharge s/p breast reduction CHEST: Normal inspiratory effort ABDOMEN: soft, non-tender, no masses, and +adiposity PELVIC: external genitalia normal, normal Bartholin's glands, urethra, [place]'s glands, no vulvar lesions, no cervical lesions, good vaginal support, physiologic discharge present, normal appearing perineal body and perianal region BIMANUAL: uterus normal size, shape and consistency, no adnexal masses, and non-tender RECTOVAGINAL: deferred. NEURO: alert and oriented x3,exam grossly non-focal EXTREMITIES: normal ASSESSMENT/PLAN: 1) Health maintenance: Pap done with reflex HPV. Nutrition, exercise and routine health maintenance exams reviewed. HPV vaccine: will receive 3rd in series today 2. Irregular menstrual cycle - ICD9: 626.4, ICD10: N92.6 - Nexplanon removed 08/2021 - TSH BLD - PROLACTIN BLD - TESTOSTERONE, FREE AND TOTAL - DHEA-S BLD - HYDROXYPROGESTERO-17 - FSH BLD - LUTEINIZING HORMONE - ESTRADIOL-17B BLD - PELVIC US WHI - US FEMALE PELVIS TRANSVAG 4 months ago - Hgba1c 5.5, lipid panel, CBC 3. Hirsutism - ICD9: 704.1, ICD10: L68.0 - TSH BLD - PROLACTIN BLD - TESTOSTERONE, FREE AND TOTAL - DHEA-S BLD - HYDROXYPROGESTERO-17 - FSH BLD - LUTEINIZING HORMONE - ESTRADIOL-17B BLD - PELVIC US WHI - US FEMALE PELVIS TRANSVAG 4. Class 3 severe obesity with body mass index (BMI) of 40.0 to 44.9 in adult, unspecified obesity type, unspecified whether serious comorbidity present (HCC) - ICD9: 278.01, V85.41, ICD10: E66.01, Z68.41 Weight increasing. Given questionnaire to complete - she will consider options and make weight management appointment if desired. - VITAMIN D 25 HYDROXY - IRON + TIBC - FERRITIN BLD - INSULIN ASSAY BLOOD 5) Contraception: condoms. Contraceptive options reviewed and information provided. 6) STD screening: Accepted STD check for Gonorrhea and Chlamydia. 7) Follow up one year or sooner as needed Natali Brunson APRN.SHERRY documented in this encounter [facility] 12-23-2022 Instructions Donna Dumont Ma - 12/23/2022 8:57 AM EST Gardasil Gardasil is a vaccine to protect against Human Papillomavirus (HPV) types 6, 11, 16, 18, 31,33,45, 52, 58. These viruses cause cancer and precancerous lesions on the cervix (opening between vagina and uterus), in the vagina and on the vulva (skin around the outside of the vagina) as well as genital warts. The vaccine cannot cause these diseases and cannot treat them if already present. Gardasil works best if given before contact with HPV. Most people are exposed to HPV soon after starting sexual activity. The vaccine is recommended between the ages of 9 and 45. Gardasil does not protect against all strains of HPV. Women who receive the vaccine still need to have regular pelvic exams and cervical cancer screening with the pap smear. You should ask your doctor if Gardasil is right for you if you have a weakened immune system, a bleeding disorder, plan to become soon or have a current illness causing fever. Gardasil is not recommended for women. You should be sure your doctor is aware of any allergies you have and all medications and herbal supplements you take. Gardasil is given to those ages 9-14 in 2 doses at 0 and 8 months. In ages 15-45, three injections are given at 0,2,6 months. Common side effects include pain, redness, itching and swelling at the injection site, nausea, fever, dizziness and fainting. Rare but potentially serious reactions have been reported. These include allergic reaction, swollen glands, joint and muscle pain, weakness and Guillain-[place] syndrome. documented in this encounter [facility] 09-04-2022 Hospital course Narrative [facility] DISCHARGE SUMMARY Juan Antonio Guerin Account: [id number] Admitted: 09/03/2022 Discharge Date/Time: 09/04/22 9:35 AM Clinical Summary Handoff to PCP Routine hospital follow up Juan Antonio Guerin is a 27 y.o. female with a history of vasovagal syncope who presented to [facility] Observation 09/03/2022 as a stroke alert after episodes of transient right visual field loss of right eye followed by occipital FOSS and nausea. Transient Neurologic Symptoms/Headache: Presented as above, first episode. CTH and CTA H/N 09/03/22 non-acute. Suspect complex migraine though will workup TIA/stroke. Permissive HTN for first 24 hrs with eventual BP goal < 130/80. Stroke team evaluated: loaded with ASA, ordered abbrev MRI which was non acute, but did show few punctate T2 hyperintense foci in b/l frontal white matter. Monitor with FOSS cocktail and IVF. A1c 5.5 and FLP ordered. Neuro ok with discharge. Elevated BP: Without formal dx of HTN. Likely pain-mediated. Monitor. improved. History of Symptomatic Sinus Tachycardia: Known hx, underwent workup including event monitor and EP study with no evidence of SVT in 2018. No longer on home meds due to hypotension. Monitor. Obesity: Body mass index is 36.49 kg/m . Recommend diet/lifestyle modifications as able. Upon discharge, patient's labs/vitals showed no acute abnormality. Case was discussed with consulting providers, patient, and family with all questions answered. Patient was told to return to ED if new or worsening symptoms. Code Status: full Discharge Medications Medication List ASK your doctor about these medications ibuprofen 200 MG tablet Commonly known as: TAMMY MERCER Physician(s) Family: Mely Hudson MD, , Address: [address] [place], [place] [id number] Follow Up: No follow-up provider specified. Laboratory Follow Up by Sayra: none Additional Information: Patient seen and examined day of discharge. For more information regarding patient's care, including complete radiology reports, please contact [facility] at Patient instructions, including activity, were given to the patient/family at discharge. Please see the After Visit Summary in the medical record for details. Completed by: Aliya Correa on 09/04/22, 9:35 AM documented in this encounter [facility] 09-04-2022 Consult note Formatting of th is note is different from the original. Neurology Inpatient Follow-up [facility] 09/04/2022 Julian Gore MD [facility] Patient: Juan Antonio Guerin Date of : 1995 (27 y.o. female) PCP: Mely Hudson MD ASSESSMENT: 27 y.o. female with history of SVT and vasovagal syncope presented to [facility] on 09/03/2022 with an episode of hemivisual field loss in the right eye only associated with a headache and nausea. The localization to the right eye takes this out of the brain and make stroke highly unlikely. I suspect that this is her first migraine with aura. I would not be surprised if she has more of these in the near future. Her physical exam is normal and her imaging was unremarkable fortunately. The MRI of her brain shows minimal very small T2 hyperintensities. These are nonspecific and benign. PLAN: 1. She needs no further neurological evaluation at this time and can be discharged home. 2. If she has more these events in the future she can call my office and I will be happy to see her again and start Imitrex as needed. DIAGNOSTIC TESTING SUMMARY: Resulted Testing: (MRI/CT/XR, EEG, EMG, CSF, Cardiac, Labs) CTA of the head and neck negative. MRI of the brain with no acute infarct. There are few punctate T2 hyperintensities in the bilateral frontal white matter. LDL is 120, A1c 5.5 CBC, BMP and UA normal/negative and urine test negative SUBJECTIVE: Chief Complaint/Reason for Visit: Transient visual field loss in the right eye History of Present Illness (HPI) Since Last Visit: Informant(s): Patient, Care Team/Chart The patient reports no personal or family history of migraines. She does have a history of frequent palpitations and has had evaluations at [facility] and at the [facility] and was eventually diagnosed with inappropriate sinus tachycardia and vasovagal syncope. Yesterday at around 1530 (09/03) she was reading and she noticed that there was a small area laterally in the right eye peripheral vision that seemed abnormal. Then this progressed to vision loss in the right hemivisual field but only in the right eye. If she closed her right eye her vision was completely normal in the left eye. Around the time this started she also developed a searing posterior head pain at the base of her skull and some nausea. Her visual symptoms persisted until approximately 2300 hrs. on 09/03. Her headache has gotten much better but she still has some pain in the back of the head. Her nausea has resolved. Earlier this year she saw her business planning manager and said that she had a normal examination. Review of Systems: All systems reviewed and negative except pertinent positives and negatives documented in the History of Present Illness (HPI). OBJECTIVE: Physical Examination: BP 121/80 Pulse 91 Temp 97.9 F (36.6 C) (Oral) Resp 16 Ht 5' 8 Wt 108.9 kg (240 lb) SpO2 95% BMI 36.49 kg/m FARMER: DNFC: Does Not Follow Commands NANCIE: Unable to Assess GENERAL: General Appearance: In NAD Eyes: See pupils below Ears: See hearing below Neck: Supple Respiratory Effort: Normal Extremities: No edema Skin: No rashes visualized Fundi Exam: Normal; no papilledema MENTAL STATUS: Alertness, Attention Span & Concentration: Normal Language: Normal Speech: Normal Orientation: Normal Memory, Recent & Remote: Normal Fund of Knowledge: Normal CRANIAL NERVES: II - Visual Gorman: Normal II, III: Pupils: PERRL III, IV, : Eye Movements: Normal (EOMI, No ptosis, No nystagmus) V - Facial Sensation: Normal VII: Face Symmetry & Strength: Normal VIII - Hearing: Normal IX, X - Palate:: Normal XI - Shoulder Shrug: Normal XII - Tongue Protrusion: Normal GAIT: Normal gait Gait Aid Used During Exam: None Gait Assistance Required During Exam: None STANCE: Normal stance COORDINATION & GROSS MOTOR: Abnormal Movements: None Coordination [id number]: Normal Coordination Qpvl-[id number]: Normal Rapid Alternating Movements: Normal Drift: None Tone: Normal Bulk: Normal MUSCLE STRENGTH: Right Muscle Strength Left 5 Shoulder Abduction (Deltoid) 5 5 Elbow Flexion (Biceps) 5 5 Elbow Extension (Triceps) 5 5 Finger Abduction (Interossei) 5 5 Hip Flexion (Iliopsoas) 5 5 Knee Extension (Quads) 5 5 Knee Flexion (Hamstrings) 5 5 Dorsiflexion (Anterior Tibialis) 5 MOTOR FARMER: 5 Normal (Normal Power) 4 Mild Weakness (Movement against moderate resistance over a full range of motion) 3 Moderate Weakness (Movement against gravity over almost full range of motion) 2 Severe Weakness (Movement with gravity eliminated over almost full range of motion) 1 Trace Movement (flicker of contraction visible or palpable) 0 No Movement (No contraction visible or palpable) NANCIE Unable to Assess REFLEXES: Right Reflexes Left 2+ Biceps 2+ 2+ Triceps 2+ 2+ Brachioradialis 2+ 2+ Patellar 2+ 2+ Achilles 2+ Down Plantar Response (Babinski) Down REFLEXES FARMER: 4+ Sustained Clonus 3+ Brisk 2+ Normal 1+ Diminished 0 Absent NANCIE Unable to Assess SENSATION: Fine Touch: Normal [facility] Work Phone: 09-04-2022 Consult note Formatting of th is note is different from the original. Neurology Inpatient Follow-up [facility] 09/04/2022 Julian Gore MD [facility] Patient: Juan Antonio Guerin Date of : 1995 (27 y.o. female) PCP: Mely Hudson MD ASSESSMENT: 27 y.o. female with history of SVT and vasovagal syncope presented to [facility] on 09/03/2022 with an episode of hemivisual field loss in the right eye only associated with a headache and nausea. The localization to the right eye takes this out of the brain and make stroke highly unlikely. I suspect that this is her first migraine with aura. I would not be surprised if she has more of these in the near future. Her physical exam is normal and her imaging was unremarkable fortunately. The MRI of her brain shows minimal very small T2 hyperintensities. These are nonspecific and benign. PLAN: 1. She needs no further neurological evaluation at this time and can be discharged home. 2. If she has more these events in the future she can call my office and I will be happy to see her again and start Imitrex as needed. DIAGNOSTIC TESTING SUMMARY: Resulted Testing: (MRI/CT/XR, EEG, EMG, CSF, Cardiac, Labs) CTA of the head and neck negative. MRI of the brain with no acute infarct. There are few punctate T2 hyperintensities in the bilateral frontal white matter. LDL is 120, A1c 5.5 CBC, BMP and UA normal/negative and urine test negative SUBJECTIVE: Chief Complaint/Reason for Visit: Transient visual field loss in the right eye History of Present Illness (HPI) Since Last Visit: Informant(s): Patient, Care Team/Chart The patient reports no personal or family history of migraines. She does have a history of frequent palpitations and has had evaluations at [facility] and at the [facility] and was eventually diagnosed with inappropriate sinus tachycardia and vasovagal syncope. Yesterday at around 1530 (09/03) she was reading and she noticed that there was a small area laterally in the right eye peripheral vision that seemed abnormal. Then this progressed to vision loss in the right hemivisual field but only in the right eye. If she closed her right eye her vision was completely normal in the left eye. Around the time this started she also developed a searing posterior head pain at the base of her skull and some nausea. Her visual symptoms persisted until approximately 2300 hrs. on 09/03. Her headache has gotten much better but she still has some pain in the back of the head. Her nausea has resolved. Earlier this year she saw her business planning manager and said that she had a normal examination. Review of Systems: All systems reviewed and negative except pertinent positives and negatives documented in the History of Present Illness (HPI). OBJECTIVE: Physical Examination: BP 121/80 Pulse 91 Temp 97.9 F (36.6 C) (Oral) Resp 16 Ht 5' 8 Wt 108.9 kg (240 lb) SpO2 95% BMI 36.49 kg/m FARMER: DNFC: Does Not Follow Commands NANCIE: Unable to Assess GENERAL: General Appearance: In NAD Eyes: See pupils below Ears: See hearing below Neck: Supple Respiratory Effort: Normal Extremities: No edema Skin: No rashes visualized Fundi Exam: Normal; no papilledema MENTAL STATUS: Alertness, Attention Span & Concentration: Normal Language: Normal Speech: Normal Orientation: Normal Memory, Recent & Remote: Normal Fund of Knowledge: Normal CRANIAL NERVES: II - Visual Gorman: Normal II, III: Pupils: PERRL III, IV, : Eye Movements: Normal (EOMI, No ptosis, No nystagmus) V - Facial Sensation: Normal VII: Face Symmetry & Strength: Normal VIII - Hearing: Normal IX, X - Palate:: Normal XI - Shoulder Shrug: Normal XII - Tongue Protrusion: Normal GAIT: Normal gait Gait Aid Used During Exam: None Gait Assistance Required During Exam: None STANCE: Normal stance COORDINATION & GROSS MOTOR: Abnormal Movements: None Coordination Sclnak-ex-Skid: Normal Coordination Xngq-Napu-Dncj: Normal Rapid Alternating Movements: Normal Drift: None Tone: Normal Bulk: Normal MUSCLE STRENGTH: Right Muscle Strength Left 5 Shoulder Abduction (Deltoid) 5 5 Elbow Flexion (Biceps) 5 5 Elbow Extension (Triceps) 5 5 Finger Abduction (Interossei) 5 5 Hip Flexion (Iliopsoas) 5 5 Knee Extension (Quads) 5 5 Knee Flexion (Hamstrings) 5 5 Dorsiflexion (Anterior Tibialis) 5 MOTOR FARMER: 5 Normal (Normal Power) 4 Mild Weakness (Movement against moderate resistance over a full range of motion) 3 Moderate Weakness (Movement against gravity over almost full range of motion) 2 Severe Weakness (Movement with gravity eliminated over almost full range of motion) 1 Trace Movement (flicker of contraction visible or palpable) 0 No Movement (No contraction visible or palpable) NANCIE Unable to Assess REFLEXES: Right Reflexes Left 2+ Biceps 2+ 2+ Triceps 2+ 2+ Brachioradialis 2+ 2+ Patellar 2+ 2+ Achilles 2+ Down Plantar Response (Babinski) Down REFLEXES FARMER: 4+ Sustained Clonus 3+ Brisk 2+ Normal 1+ Diminished 0 Absent NANCIE Unable to Assess SENSATION: Fine Touch: Normal Stroke Team STEVAN Initial Triage Note [facility] 09/03/2022 Lisette Garcia CNP [facility] Patient: Juan Antonio Guerin Date of : 1995 (27 y.o. female) Referring Provider: Refer to consult order in electronic medical record PCP: Mely Hudson MD ASSESSMENT: 27 y.o. female with history of SVT and vasovagal syncope presented to [facility] on 09/03/2022 with what was described as transient right monocular visual field cuts followed by headache and nausea. CT head and CTA head/neck were non-acute. PLAN: Transient neurological symptoms Headache Etiology: Complex migraine vs TIA/CVA NO acute stroke treatments The patient IS NOT a candidate for IV thrombolytics due to resolution of symptoms, NIHSS 0. The patient IS NOT a candidate for endovascular/IA/RABIA treatment due to no intravascular target. Attending Service will need to electronically order a Neurology consult for ongoing inpatient Neurology care. Disposition: Recommend OTILIA Admission Order Set: To be completed by Attending Service. Other Order Sets: Stroke & TIA without Thrombolytic or Intervention orders completed. Recommend migraine cocktail Testing: Abbreviated MRI. Labs: A1c, Lipid panel (Fasting) Anti-thrombotic: ASA 325 mg once for now. Anti-lipid Agent: Await completion of evaluation/testing to determine if appropriate to treat BP Goal: Less than 220/110 for initial 24 hrs of admit/onset of stroke-like symptoms, then gradual steady reduction to normotension; AVOID hypotension; Attending Service to manage Glucose Goal: Normoglycemia/ A1c less than 6.5. Attending Service to manage. Tobacco: Counseled to not smoke/use tobacco. Attending Service to manage. Therapy: PT, OT evaluation. ST evaluation for swallow and speech/language/cognition. DVT Prophylaxis: DVT prophylaxis per Attending Service. Answered questions and rediscussed plan at length with Patient. Covering neurologist: Dr. Carpio. Discussed plan with other teams' providers, specifically Dr. Henderson. DIAGNOSTIC TESTING SUMMARY: -CT head: No acute intracranial abnormality. -CTA head/neck: No LVO, dissection, or significant stenosis. Lab Results Component Value Date HGBA1C 4.8 01/25/2020 SUBJECTIVE: Chief Complaint/Reason for Consult: right visual field loss Informant(s): Patient, Care Team/Chart History of Present Illness: Juan Antonio Guerin is a 27 y.o. female with past medical history of SVT and vasovagal syncope presented with transient right visual field loss followed by headache. 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 She then developed an occipital headache and nausea. The vision returned however she reported blurred peripheral vision in her right eye. Denied prior similar episodes, TIA/CVA, migraines, seizures. No associated numbness, tingling, weakness, dizziness, hearing changes, chest pain, or shortness of breath. Examined by ED physician on arrival with subsequent stroke alert called. Blood pressure 150/98. Blood glucose 80. NIHSS 0. No focal deficits on exam. Continued to report blurred vision and headache. Time: Last known well (date & time): 154409/03/22 Stroke Alert called: 1650 Stroke Team STEVAN at bedside: 1653 Patient arrival: 1638 Treatments: See A&P Review of Systems: All systems reviewed and negative except pertinent positives and negatives documented in the History of Present Illness (HPI). History: Past Medical History: Diagnosis Date SVT (supraventricular tachycardia) (HCC) Vasovagal syncope Past Surgical History: Procedure Laterality Date ABLATION WITH PHENOL BILAT. BREAST REDUCTION, FREE NIPPLE PROCEDURE CHOLECYSTECTOMY EP - DIAGNOSTIC N/A 01/02/2018 Procedure: Tilt Table; Surgeon: Omid Sharma MD; Location: [facility] EP LAB; Service: Cardiovascular EP STUDY N/A 09/08/2018 Procedure: EP Study Possible Complex Ablation SVT with CARTO; Surgeon: Alfred Sainz MD; Location: [facility] EP LAB; Service: Cardiovascular TONSILLECTOMY WISDOM TOOTH EXTRACTION Social History: reports that she has never smoked. She has never used smokeless tobacco. She reports current alcohol use. She reports that she does not use drugs. No family history on file. Additional History Comments: None Allergies: Patient has no known allergies. HOME Medications: No outpatient medications have been marked as taking for the 09/03/22 encounter (Hospital Encounter). 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: Does Not Follow Commands NANCIE: Unable to Assess GENERAL: General Appearance: In NAD Eyes: See pupils below Ears: See hearing below Neck: Supple Respiratory Effort: Normal Extremities: No edema Skin: No rashes visualized MENTAL STATUS: Alertness, Attention Span & Concentration: Normal Language: Normal Speech: Normal Orientation: Normal Memory, Recent & Remote: Normal Fund of Knowledge: Normal CRANIAL NERVES: II - Visual Gorman: Normal II, III - Pupils: PERRL III, IV, - Eye Movements: Normal (EOMI, no ptosis, no nystagmus) V - Facial Sensation: Normal VII - Face Symmetry and Strength: Normal VIII - Hearing: Normal IX, X - Palate: Normal XI - Shoulder Shrug: Normal XII - Tongue Protrusion: Normal COORDINATION & GROSS MOTOR: Abnormal Movements: None Coordination Tuwixu-zq-Lako: Normal Coordination: Gpfp-Robt-Tbgh:Normal Rapid Alternating Movements: Normal Drift: None Tone: Normal Bulk: Normal MOTOR - MUSCLE STRENGTH: Right Limb Left GOOD movement - purposeful Upper GOOD movement - purposeful GOOD movement - purposeful Lower GOOD movement - purposeful MOTOR FARMER: 5 Normal (Normal Power) 4 Mild Weakness (Movement against moderate resistance over a full range of motion) 3 Moderate Weakness (Movement against gravity over almost full range of motion) 2 Severe Weakness (Movement with gravity eliminated over almost full range of motion) 1 Trace Movement (flicker of contraction visible or palpable) 0 No Movement (No contraction visible or palpable) NANCIE Unable to Assess SENSATION: Fine Touch: Normal OTHER: Stroke Assessment - 09/03/22 1708 NIH Stroke Scale Interval Baseline Level of Consciousness (1a.) 0 LOC Questions (1b.) 0 LOC Commands (1c.) 0 Best Gaze (2.) 0 Visual (3.) 0 Facial Palsy (4.) 0 Motor Arm, Left (5a.) 0 Motor Arm, Right (5b.) 0 Motor Leg, Left (6a.) 0 Motor Leg, Right (6b.) 0 Limb Ataxia (7.) 0 Sensory (8.) 0 Best Language (9.) 0 Dysarthria (10.) 0 Extinction and Inattention (11.) (Formerly Neglect) 0 Total 0 MRS: 0 documented in this encounter [facility] 09-03-2022 Note Formatting of this n ote might be different from the original. Rad RN reviewed and completed MRI screening form with patient Primary RN instructed on removal of personal belongings and jewelry prior to MRI arrival and encouraged to give items to family member in patient room. Verified patent IV. Requested Primary RN place MRI extension IV tubing to infusions, as appropriate, prior to MRI transport. MRI staff will contact primary RN upon scanner availability to schedule patient. [facility] 09-03-2022 Miscellaneous Notes Rad RN reviewed and completed MRI screening form with patient Primary RN instructed on removal of personal belongings and jewelry prior to MRI arrival and encouraged to give items to family member in patient room. Verified patent IV. Requested Primary RN place MRI extension IV tubing to infusions, as appropriate, prior to MRI transport. MRI staff will contact primary RN upon scanner availability to schedule patient. Stroke alert virtual health note 27-year-old female is seen through [facility] [facility] [employer] when stroke alert is called at [facility] emergency room. Patient describes no history of headache or migraine but she developed sudden onset of right hemifield visual deficit which she describes as black initially but now is colored. This is now associated with headache and nausea. Neurological examination observed by me and completed by acute stroke response team STEVAN is normal. Specifically, there is no hemianopia or visual field deficit. The presentation of this patient is most likely due to migraine headache associated with visual disturbance. She is not a candidate for IV thrombolysis or other stroke interventions due to normal neurological exam. Since this is her first presentation based on her history with current symptoms, it is reasonable to obtain CT head, CT angiography of head and neck and if no significant vasculopathy is identified, she will need admission to observation unit for MRI brain and neurology consult. documented in this encounter [facility] 09-03-2022 History and physical note [facility] History and Physical Note 09/03/22 Juan Antonio Guerin 1995 [id number] Assessment/Plan: Juan Antonio Guerin is a 27 y.o. female with a history of vasovagal syncope who presented to [facility] Observation 09/03/2022 as a stroke alert after episodes of transient right visual field loss of right eye followed by occipital FOSS and nausea. Transient Neurologic Symptoms/Headache: Presented as above, first episode. CTH and CTA H/N 09/03/22 non-acute. Suspect complex migraine though will workup TIA/stroke. Permissive HTN for first 24 hrs with eventual BP goal < 130/80. Stroke team evaluated: loaded with ASA, ordered abbrev MRI. PT/OT/PRIVATE DUTY LPN consults deferred as symptoms resolved. Monitor with FOSS cocktail and IVF. A1c and FLP pending. Elevated BP: Without formal dx of HTN. Likely pain-mediated. Monitor. History of Symptomatic Sinus Tachycardia: Known hx, underwent workup including event monitor and EP study with no evidence of SVT in 2018. No longer on home meds due to hypotension. Monitor. Obesity: Body mass index is 36.49 kg/m . Recommend diet/lifestyle modifications as able. Code Status: Full Code Current Living Situation: home Estimated discharge date: 09/04/22 pending workup Admitted with these risk variables:None. Please see assessment and plan for further details. Chief Complaint: Headache, right side vision loss in R eye History of Present Illness: Juan Antonio Guerin is a 27 y.o. female with a history of vasovagal syncope who presented to [facility] 09/03/2022 as a stroke alert after episodes of transient right visual field loss of right eye followed by occipital FOSS and nausea. Today I personally reviewed prior medical records and have summarized my findings in my assessment and plan as noted above. Today I also reviewed recent labs, diagnostics, vitals including pulse ox, and heritage consultant/other provider recommendations. Patient was evaluated in ED bed 17. VSS, no hypoxia on room air. Significant other is at bedside. Patient is sitting up in bed comfortably, pleasant. Patient states that she was at work today when she suddenly noticed that a curtain came down over the right side of her vision in her right eye. Shortly after she had a severe occipital headache with nausea. Patient has not had migraines in the past, and states that sound and light does not affect her head pain, no tinnitus or ear pain. She had no associated dizziness, extremity weakness, or numbness, no loss of consciousness. She is otherwise healthy, takes no home medications. After headache cocktail she is somewhat tired, head pain is 7/10, and her nausea is resolved. She is agreeable with MRI brain and further monitoring as discussed, all questions answered. Denied fever, chills, chest pain, dyspnea, nausea, vomiting, dysuria, hematuria, hematochezia, diarrhea, constipation, motor or sensory deficits, weakness, visual changes, dizziness or lightheadedness. Discussed with [facility] attending physician Dr. Mancia with plan as above and final attestation to follow. ROS: 10 systems were reviewed and negative, except as noted above. Past Medical, Surgical, Social, Family History: Past Medical History: Diagnosis Date Sinus tachycardia Vasovagal syncope Past Surgical History: Procedure Laterality Date ABLATION WITH PHENOL BILAT. BREAST REDUCTION, FREE NIPPLE PROCEDURE CHOLECYSTECTOMY EP - DIAGNOSTIC N/A 01/02/2018 Procedure: Tilt Table; Surgeon: Omid Sharma MD; Location: [facility] EP LAB; Service: Cardiovascular EP STUDY N/A 09/08/2018 Procedure: EP Study Possible Complex Ablation SVT with CARTO; Surgeon: Alfred Sainz MD; Location: [facility] EP LAB; Service: Cardiovascular TONSILLECTOMY WISDOM TOOTH EXTRACTION Social History Socioeconomic History Marital status: Single Tobacco Use Smoking status: Never Smokeless tobacco: Never Vaping Use Vaping Use: Never used Substance and Sexual Activity Alcohol use: Yes Comment: soc Drug use: No Family History Problem Relation Age of Onset Multiple sclerosis Mother Coronary artery disease Father Home Medications: Active Home Medications Medication Sig Note Take Last Dose On Take Morning of Surgery Comment(s) ibuprofen (ADVIL,MOTRIN) 200 MG tablet Take 2 (two) tablets (400 mg total) by mouth every 6 to 8 hours as needed (back and hip pain) . nadolol (CORGARD) 40 MG tablet Take 1 (one) tablet (40 mg total) by mouth daily. 09/03/2022: Medication discontinued due to too low of blood pressure while on medication. Patient states no problems with HR since medication was stopped in April 2022 predniSONE (DELTASONE) 20 MG tablet Take 3 tabs PO x 3 days, then 2 tabs PO x 3 days, then 1 tab PO x 3 days . (Patient not taking: No sig reported) 09/03/2022: Therapy completed Physical Exam: BP 130/85 (BP Location: Right arm, Patient Position: Lying) Pulse 88 Temp 99.2 F (37.3 C) (Oral) Resp 12 Wt 108.9 kg (240 lb) SpO2 98% BMI 36.49 kg/m General: NAD, lying in bed comfortably, significant other at bedside. Eyes: EOMI, conjugate gaze. ENT: neck supple, MMM. Cardiovascular: Regular rate. No pitting BLE edema. Respiratory: Unlabored breathing on RA. Gastrointestinal: Soft, non tender, non-distended. Musculoskeletal: No joint edema. Skin: warm, dry. Neuro: A&O x 4. SALAZAR x 4. Psych: Mood appropriate. Calm and cooperative. Labs, Imaging, and Studies reviewed: Lab Results Component Value Date GLUCOSE 98 09/03/2022 CALCIUM 10.0 08/24/2018 NA 139 09/03/2022 K 3.8 09/03/2022 CL 103 09/03/2022 BUN 9 09/03/2022 CREATININE 0.87 09/03/2022 Lab Results Component Value Date WBC 9.69 09/03/2022 HGB 14.5 09/03/2022 HCT 43.3 09/03/2022 MCV 85.1 09/03/2022 PLT 287 09/03/2022 Lab Results Component Value Date ALT 29 03/13/2018 AST 13 03/13/2018 Lab Results Component Value Date INR 1.0 09/03/2022 Associated attestation - Maria Del Rosario Mancia MD - 09/03/2022 10:19 PM EST I have personally performed a [id number] diagnostic evaluation of this patient on 09/03/2022. Patient seen independently. Labs and imaging personally reviewed. I personally completed a substantive exam as detailed below. Agree with plan as detailed in the note below by Yina Mclaughlin PA-C with the following additions: 27 y.o. female with a history of vasovagal syncope,obesity (BMI 36.5), presented to [facility] 09/03/2022 as a Stroke Alert after an episode of transient R visual field loss of R eye with occipital FOSS and nausea. NIHSS 0. EKG tracing NSR, 87 bpm, no obvious acute ischemia. Hga1c was WNL. CTA H/N neg. MRI brain neg. Headache with transient R eye visual changes: CTA H/N and MRI brain on 09/03/22 both negative. NIHSS 0. Highly suspect complex migraine. No further need for permissive HTN. Received IV migraine cocktail. Neuro c/s. Physical Exam: BP 130/85 (BP Location: Right arm, Patient Position: Lying) Pulse 88 Temp 99.2 F (37.3 C) (Oral) Resp 12 Wt 108.9 kg (240 lb) SpO2 98% BMI 36.49 kg/m General: No acute distress Eyes: EOMI, no scleral icterus ENT: neck supple, no mass, full range of motion Cardiovascular: Regular rate and rhythm. Respiratory: Clear to auscultation bilaterally, no respiratory distress Gastrointestinal: Soft, non-tender, non-distended Genitourinary: no suprapubic tenderness Musculoskeletal: No edema in bilateral lower extremities; No large joint deformities. Skin: warm, dry, without rash Neuro: Alert, oriented, no focal deficits, NIHSS 0 Psych: Mood appropriate, affect appropriate to clinical situation [facility] 09-03-2022 History and physical note [facility] History and Physical Note 09/03/22 Juan Antonio Guerin 1995 [id number] Assessment/Plan: Juan Antonio Guerin is a 27 y.o. female with a history of vasovagal syncope who presented to [facility] 09/03/2022 as a stroke alert after episodes of transient right visual field loss of right eye followed by occipital FOSS and nausea. Transient Neurologic Symptoms/Headache: Presented as above, first episode. CTH and CTA H/N 09/03/22 non-acute. Suspect complex migraine though will workup TIA/stroke. Permissive HTN for first 24 hrs with eventual BP goal < 130/80. Stroke team evaluated: loaded with ASA, ordered abbrev MRI. PT/OT/PRIVATE DUTY LPN consults deferred as symptoms resolved. Monitor with FOSS cocktail and IVF. A1c and FLP pending. Elevated BP: Without formal dx of HTN. Likely pain-mediated. Monitor. History of Symptomatic Sinus Tachycardia: Known hx, underwent workup including event monitor and EP study with no evidence of SVT in 2018. No longer on home meds due to hypotension. Monitor. Obesity: Body mass index is 36.49 kg/m . Recommend diet/lifestyle modifications as able. Code Status: Full Code Current Living Situation: home Estimated discharge date: 09/04/22 pending workup Admitted with these risk variables:None. Please see assessment and plan for further details. Chief Complaint: Headache, right side vision loss in R eye History of Present Illness: Juan Antonio Guerin is a 27 y.o. female with a history of vasovagal syncope who presented to [facility] 09/03/2022 as a stroke alert after episodes of transient right visual field loss of right eye followed by occipital FOSS and nausea. Today I personally reviewed prior medical records and have summarized my findings in my assessment and plan as noted above. Today I also reviewed recent labs, diagnostics, vitals including pulse ox, and heritage consultant/other provider recommendations. Patient was evaluated in ED bed 17. VSS, no hypoxia on room air. Significant other is at bedside. Patient is sitting up in bed comfortably, pleasant. Patient states that she was at work today when she suddenly noticed that a curtain came down over the right side of her vision in her right eye. Shortly after she had a severe occipital headache with nausea. Patient has not had migraines in the past, and states that sound and light does not affect her head pain, no tinnitus or ear pain. She had no associated dizziness, extremity weakness, or numbness, no loss of consciousness. She is otherwise healthy, takes no home medications. After headache cocktail she is somewhat tired, head pain is 7/10, and her nausea is resolved. She is agreeable with MRI brain and further monitoring as discussed, all questions answered. Denied fever, chills, chest pain, dyspnea, nausea, vomiting, dysuria, hematuria, hematochezia, diarrhea, constipation, motor or sensory deficits, weakness, visual changes, dizziness or lightheadedness. Discussed with [facility] attending physician Dr. Mancia with plan as above and final attestation to follow. ROS: 10 systems were reviewed and negative, except as noted above. Past Medical, Surgical, Social, Family History: Past Medical History: Diagnosis Date Sinus tachycardia Vasovagal syncope Past Surgical History: Procedure Laterality Date ABLATION WITH PHENOL BILAT. BREAST REDUCTION, FREE NIPPLE PROCEDURE CHOLECYSTECTOMY EP - DIAGNOSTIC N/A 01/02/2018 Procedure: Tilt Table; Surgeon: Omid Sharma MD; Location: [facility] EP LAB; Service: Cardiovascular EP STUDY N/A 09/08/2018 Procedure: EP Study Possible Complex Ablation SVT with CARTO; Surgeon: Alfred Sainz MD; Location: [facility] EP LAB; Service: Cardiovascular TONSILLECTOMY WISDOM TOOTH EXTRACTION Social History Socioeconomic History Marital status: Single Tobacco Use Smoking status: Never Smokeless tobacco: Never Vaping Use Vaping Use: Never used Substance and Sexual Activity Alcohol use: Yes Comment: soc Drug use: No Family History Problem Relation Age of Onset Multiple sclerosis Mother Coronary artery disease Father Home Medications: Active Home Medications Medication Sig Note Take Last Dose On Take Morning of Surgery Comment(s) ibuprofen (ADVIL,MOTRIN) 200 MG tablet Take 2 (two) tablets (400 mg total) by mouth every 6 to 8 hours as needed (back and hip pain) . nadolol (CORGARD) 40 MG tablet Take 1 (one) tablet (40 mg total) by mouth daily. 09/03/2022: Medication discontinued due to too low of blood pressure while on medication. Patient states no problems with HR since medication was stopped in April 2022 predniSONE (DELTASONE) 20 MG tablet Take 3 tabs PO x 3 days, then 2 tabs PO x 3 days, then 1 tab PO x 3 days . (Patient not taking: No sig reported) 09/03/2022: Therapy completed Physical Exam: BP 130/85 (BP Location: Right arm, Patient Position: Lying) Pulse 88 Temp 99.2 F (37.3 C) (Oral) Resp 12 Wt 108.9 kg (240 lb) SpO2 98% BMI 36.49 kg/m General: NAD, lying in bed comfortably, significant other at bedside. Eyes: EOMI, conjugate gaze. ENT: neck supple, MMM. Cardiovascular: Regular rate. No pitting BLE edema. Respiratory: Unlabored breathing on RA. Gastrointestinal: Soft, non tender, non-distended. Musculoskeletal: No joint edema. Skin: warm, dry. Neuro: A&O x 4. SALAZAR x 4. Psych: Mood appropriate. Calm and cooperative. Labs, Imaging, and Studies reviewed: Lab Results Component Value Date GLUCOSE 98 09/03/2022 CALCIUM 10.0 08/24/2018 NA 139 09/03/2022 K 3.8 09/03/2022 CL 103 09/03/2022 BUN 9 09/03/2022 CREATININE 0.87 09/03/2022 Lab Results Component Value Date WBC 9.69 09/03/2022 HGB 14.5 09/03/2022 HCT 43.3 09/03/2022 MCV 85.1 09/03/2022 PLT 287 09/03/2022 Lab Results Component Value Date ALT 29 03/13/2018 AST 13 03/13/2018 Lab Results Component Value Date INR 1.0 09/03/2022 Associated attestation - Maria Del Rosario Mancia MD - 09/03/2022 10:19 PM EST I have personally performed a [id number] diagnostic evaluation of this patient on 09/03/2022. Patient seen independently. Labs and imaging personally reviewed. I personally completed a substantive exam as detailed below. Agree with plan as detailed in the note below by Yina Mclaughlin PA-C with the following additions: 27 y.o. female with a history of vasovagal syncope,obesity (BMI 36.5), presented to [facility] Observation 09/03/2022 as a Stroke Alert after an episode of transient R visual field loss of R eye with occipital FOSS and nausea. NIHSS 0. EKG tracing NSR, 87 bpm, no obvious acute ischemia. Hga1c was WNL. CTA H/N neg. MRI brain neg. Headache with transient R eye visual changes: CTA H/N and MRI brain on 09/03/22 both negative. NIHSS 0. Highly suspect complex migraine. No further need for permissive HTN. Received IV migraine cocktail. Neuro c/s. Physical Exam: BP 130/85 (BP Location: Right arm, Patient Position: Lying) Pulse 88 Temp 99.2 F (37.3 C) (Oral) Resp 12 Wt 108.9 kg (240 lb) SpO2 98% BMI 36.49 kg/m General: No acute distress Eyes: EOMI, no scleral icterus ENT: neck supple, no mass, full range of motion Cardiovascular: Regular rate and rhythm. Respiratory: Clear to auscultation bilaterally, no respiratory distress Gastrointestinal: Soft, non-tender, non-distended Genitourinary: no suprapubic tenderness Musculoskeletal: No edema in bilateral lower extremities; No large joint deformities. Skin: warm, dry, without rash Neuro: Alert, oriented, no focal deficits, NIHSS 0 Psych: Mood appropriate, affect appropriate to clinical situation documented in this encounter [facility] 09-03-2022 Emergency department Note Per Neurology [employer] Cancel code stroke [facility] 09-03-2022 Emergency department Note Per Neurology [employer] Cancel code stroke [facility] EMERGENCY DEPARTMENT PCP - Mely Hudson MD Chief Complaint Patient presents with Headache Nausea HPI MEDICAL DECISION MAKING 27-year-old female presents to [facility] emergency department chief complaint of visual disturbance and headache. 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 Patient reportedly felt vaguely off this morning when she got to work. She reports has not necessarily abnormal for her to feel tired. She reports at 3:45 PM she had acute onset of visual field cut to her right eye. She reports it was like a black curtain over the lateral aspect of that right eye vision. Patient notes that shortly thereafter she developed a headache localizing to her occipital region. She reports that her vision has improved at this time to the point where now is only blurriness. She is never experiencing it this before. She notes that she has had no numbness or weakness to her extremities. She has taken no medicines prior to arrival here. She arrives here by local EMS. 27-year-old female presents [facility] emergency department chief complaint of visual disturbance and headache. Patient is seen and evaluated in room upon arrival here. Patient noted to have concerning features with acute neurologic deficit concerning for an acute CVA and is made a level 1 stroke alert. I did discuss the findings directly with the stroke neurology team. On my examination patient is resting comfortably. She appears in no acute distress. She is slightly hypertensive blood pressure 150/98. She demonstrates a tachycardic heart rate but normal rhythm her lungs appear clear bilaterally. Abdomen is soft extremities are well-perfused. Neurologically patient demonstrates no focal visual disturbance at this time. She has symmetrical facial movements. She was bilateral upper and lower extremities without difficulty. She has an NIH of 0. In consultation with stroke neurology team will pursue CT of the head without as well as CTA of the head and neck. Patient will be initiated on medication for treatment of headache. Patient had laboratory studies performed base metabolic panel showing creatinine of 0.87. CBC shows a white count 9.69, hemoglobin 14.5 and platelets of 287. CT of the head without contrast shows low-lying cerebellar tonsils no acute brain parenchymal abnormality. CTA reviewed by stroke neurology without any acute findings. At this time neurology is recommended further evaluation MRI. Patient currently neurologically intact with NIH of 0. We will plan for treating headache with some Benadryl Reglan. She otherwise will be admitted to the [facility] observation unit CLINICAL IMPRESSION No diagnosis found. Follow-up Information Follow-up information has not been specified. Contact information for after-discharge care Follow-up information has not been specified. The patient has been informed that they may have pre-hypertension or hypertension based on a blood pressure reading in the Emergency Department. I recommend that the patient call the primary care provider listed on their discharge instructions or a physician of their choice as soon as possible to arrange follow-up in the next 4 weeks for further evaluation of possible pre-hypertension or hypertension. . Labs Reviewed CHEM 7 - Normal Narrative: [facility] has implemented the eGFR calculation approach that does not have a coefficient for race that conforms to the NKF-ASN Task Force Recommendations. PT/INR - Normal Narrative: During the induction phase of oral anticoagulation, the INR may not reflect the anticoagulation status of the patient. Therapeutic ranges for INR's are: Most clinical situations: INR 2.0-3.0 Mechanical Prosthetic Valve: INR 2.5-3.5 Critical: INR >5.0 POC GLUCOSE - RALS - Normal CBC AND DIFFERENTIAL Narrative: The following orders were created for panel order CBC w/ Diff. Procedure Abnormality Status --------- ------ CBC Auto Differential[[id number]] Final result Please view results for these tests on the individual orders. URINALYSIS HCG URINE, QUALITATIVE HEMOGLOBIN A1C CBC WITH AUTO DIFFERENTIAL Radiographic Imaging (if any) During ED Visit CT Head Without Contrast (Stroke) Final Result 1. No acute brain parenchymal abnormality, hemorrhage or mass lesion. 2. No skull fracture. 3. Low-lying cerebellar tonsils. Workstation ID: [id number] CT Angiogram Head Neck (STROKE) (Results Pending) MR Abbreviated Stroke (Results Pending) Medications Ordered/Given During ED Visit Medications sodium chloride (PF) (NS) flush 5 mL (has no administration in time range) And sodium chloride 0.9% (NS) (has no administration in time range) iopamidoL (ISOVUE-370) 370 mg iodine /mL (76 %) injection 75 mL (has no administration in time range) iopamidoL (ISOVUE-370) 370 mg iodine /mL (76 %) injection 50 mL (has no administration in time range) aspirin tablet 325 mg (has no administration in time range) ondansetron (ZOFRAN) injection 4 mg (has no administration in time range) sodium chloride 0.9% (NS) bolus 1,000 mL (has no administration in time range) diphenhydrAMINE (BENADRYL) injection 25 mg (25 mg Intravenous Given 09/03/22 1741) metoclopramide (REGLAN) injection 10 mg (10 mg Intravenous Given 09/03/22 1735) iopamidoL (ISOVUE-370) 370 mg iodine /mL (76 %) injection 75 mL (75 mL Intravenous Contrast Administered 09/03/22 1708) PROCEDURES (if any, during ED visit): Procedures Review of Systems Constitutional: No fevers, no unexpected weight change Skin: No color changes Eyes: No discharge ENMT: No drooling Respiratory: No stridor Genitourinary: No dysuria Endocrine: No polyphagia Neurologic: No new face asymmetry Psychiatric: No self injury Hematologic/Lymphatic: No new easy bruising Allergic/Immunologic: No urticaria All systems reviewed negative except as mentioned above. Review of Systems Constitutional: Negative for fatigue and fever. Eyes: Positive for visual disturbance. Respiratory: Negative for cough, shortness of breath and wheezing. Neurological: Positive for headaches. Negative for weakness and numbness. Physical Exam Vital Signs During ED Visit (as charted by nursing) Patient Vitals for the past 24 hrs: BP Temp Temp src Pulse Resp SpO2 Weight 09/03/22 1730 137/85 -- -- 98 (!) 19 100 % -- 09/03/22 1715 (!) 141/91 -- -- (!) 108 (!) 19 99 % -- 09/03/22 1650 (!) 150/98 99.2 F (37.3 C) Oral (!) 115 (!) 22 -- 108.9 kg (240 lb) Physical Exam Vitals and nursing note reviewed. Constitutional: General: She is not in acute distress. Appearance: Normal appearance. She is normal weight. She is not ill-appearing, toxic-appearing or diaphoretic. HENT: Head: Normocephalic and atraumatic. Right Ear: External ear normal. Left Ear: External ear normal. Nose: Nose normal. No congestion or rhinorrhea. Mouth/Throat: Mouth: Mucous membranes are moist. Pharynx: Oropharynx is clear. No oropharyngeal exudate or posterior oropharyngeal erythema. Eyes: General: No scleral icterus. Right eye: No discharge. Left eye: No discharge. Extraocular Movements: Extraocular movements intact. Conjunctiva/sclera: Conjunctivae normal. Pupils: Pupils are equal, round, and reactive to light. Cardiovascular: Rate and Rhythm: Normal rate and regular rhythm. Pulses: Normal pulses. Heart sounds: Normal heart sounds. No murmur heard. No friction rub. No gallop. Pulmonary: Effort: Pulmonary effort is normal. No respiratory distress. Breath sounds: Normal breath sounds. No stridor. No wheezing, rhonchi or rales. Chest: Chest wall: No tenderness. Abdominal: General: There is no distension. Palpations: Abdomen is soft. There is no mass. Tenderness: There is no abdominal tenderness. There is no guarding or rebound. Hernia: No hernia is present. Musculoskeletal: General: No swelling, tenderness, deformity or signs of injury. Normal range of motion. Cervical back: Normal range of motion. No rigidity or tenderness. No muscular tenderness. Right lower leg: No edema. Left lower leg: No edema. Skin: General: Skin is warm. Capillary Refill: Capillary refill takes less than 2 seconds. Coloration: Skin is not jaundiced or pale. Findings: No bruising, erythema, lesion or rash. Neurological: General: No focal deficit present. Mental Status: She is alert and oriented to person, place, and time. Mental status is at baseline. Cranial Nerves: No cranial nerve deficit. Sensory: No sensory deficit. Motor: No weakness. NIH Scale: LOC: 0 - alert LOC Questions: 0 - answers both correctly LOC Commands: 0 - performs both correctly Best gaze: 0 - normal Vision: 0 - no visual loss Facial Palsy: 0 - normal Left arm: 0 - no drift Right arm; 0 - no drift Left le - no drift Right le - no drift Limb ataxia: 0 - absent Sensation: 0 - normal Best language: 0 - no aphasia Dysarthria: 0 - normal articulation Extinction and inattention: 0 - no neglect Stroke Scale: 0 Past Medical History Past Medical History: Diagnosis Date SVT (supraventricular tachycardia) (HCC) Vasovagal syncope Past Surgical History Past Surgical History: Procedure Laterality Date ABLATION WITH PHENOL BILAT. BREAST REDUCTION, FREE NIPPLE PROCEDURE CHOLECYSTECTOMY EP - DIAGNOSTIC N/A 01/02/2018 Procedure: Tilt Table; Surgeon: Omid Sharma MD; Location: [facility] EP LAB; Service: Cardiovascular EP STUDY N/A 09/08/2018 Procedure: EP Study Possible Complex Ablation SVT with CARTO; Surgeon: Alfred Sainz MD; Location: [facility] EP LAB; Service: Cardiovascular TONSILLECTOMY WISDOM TOOTH EXTRACTION Family History No family history on file. Social History Social History Socioeconomic History Marital status: Single Tobacco Use Smoking status: Never Smokeless tobacco: Never Vaping Use Vaping Use: Never used Substance and Sexual Activity Alcohol use: Yes Comment: soc Drug use: No Allergies No Known Allergies Medications Previous Medications Medication Sig ibuprofen (ADVIL,MOTRIN) 200 MG tablet Take 1 tablet by mouth every 6 to 8 hours as needed . nadolol (CORGARD) 40 MG tablet Take 1 (one) tablet (40 mg total) by mouth daily. (Patient taking differently: Take 40 mg by mouth 2 (two) times a day .) predniSONE (DELTASONE) 20 MG tablet Take 3 tabs PO x 3 days, then 2 tabs PO x 3 days, then 1 tab PO x 3 days . (Patient not taking: Reported on 03/30/2021 .) IMPRESSION: No diagnosis found. *Management decisions made amidst COVID-19 public health emergency* *Please note that portions of this note were created using [employer] voice recognition software.* Lisseth Henderson MD 09/03/221751 STROKE ALERT LEVEL 1 CALLED AT 1649 Pt presents to ED via EMS with c/o visual disturbance, sudden onset on headache, and nausea. 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 Pt got out of bed to answer door when she returned to bunk sudden onset headache on occipital area and right eye peripheral vision loss. Physician notified. No unilateral weakness, no slurred speech, no facial droop. Bed: 17 Expected date: Expected time: Means of arrival: Comments: Jules Henderson documented in this encounter [facility] 09-03-2022 Physician Emergency department Note [facility] EMERGENCY DEPARTMENT PCP - Mely Hudson MD Chief Complaint Patient presents with Headache Nausea HPI MEDICAL DECISION MAKING 27-year-old female presents to [facility] emergency department chief complaint of visual disturbance and headache. 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 Patient reportedly felt vaguely off this morning when she got to work. She reports has not necessarily abnormal for her to feel tired. She reports at 3:45 PM she had acute onset of visual field cut to her right eye. She reports it was like a black curtain over the lateral aspect of that right eye vision. Patient notes that shortly thereafter she developed a headache localizing to her occipital region. She reports that her vision has improved at this time to the point where now is only blurriness. She is never experiencing it this before. She notes that she has had no numbness or weakness to her extremities. She has taken no medicines prior to arrival here. She arrives here by local EMS. 27-year-old female presents [facility] emergency department chief complaint of visual disturbance and headache. Patient is seen and evaluated in room upon arrival here. Patient noted to have concerning features with acute neurologic deficit concerning for an acute CVA and is made a level 1 stroke alert. I did discuss the findings directly with the stroke neurology team. On my examination patient is resting comfortably. She appears in no acute distress. She is slightly hypertensive blood pressure 150/98. She demonstrates a tachycardic heart rate but normal rhythm her lungs appear clear bilaterally. Abdomen is soft extremities are well-perfused. Neurologically patient demonstrates no focal visual disturbance at this time. She has symmetrical facial movements. She was bilateral upper and lower extremities without difficulty. She has an NIH of 0. In consultation with stroke neurology team will pursue CT of the head without as well as CTA of the head and neck. Patient will be initiated on medication for treatment of headache. Patient had laboratory studies performed base metabolic panel showing creatinine of 0.87. CBC shows a white count 9.69, hemoglobin 14.5 and platelets of 287. CT of the head without contrast shows low-lying cerebellar tonsils no acute brain parenchymal abnormality. CTA reviewed by stroke neurology without any acute findings. At this time neurology is recommended further evaluation MRI. Patient currently neurologically intact with NIH of 0. We will plan for treating headache with some Benadryl Reglan. She otherwise will be admitted to the [facility] observation unit CLINICAL IMPRESSION No diagnosis found. Follow-up Information Follow-up information has not been specified. Contact information for after-discharge care Follow-up information has not been specified. The patient has been informed that they may have pre-hypertension or hypertension based on a blood pressure reading in the Emergency Department. I recommend that the patient call the primary care provider listed on their discharge instructions or a physician of their choice as soon as possible to arrange follow-up in the next 4 weeks for further evaluation of possible pre-hypertension or hypertension. . Labs Reviewed CHEM 7 - Normal Narrative: [facility] has implemented the eGFR calculation approach that does not have a coefficient for race that conforms to the NKF-ASN Task Force Recommendations. PT/INR - Normal Narrative: During the induction phase of oral anticoagulation, the INR may not reflect the anticoagulation status of the patient. Therapeutic ranges for INR's are: Most clinical situations: INR 2.0-3.0 Mechanical Prosthetic Valve: INR 2.5-3.5 Critical: INR >5.0 POC GLUCOSE - RALS - Normal CBC AND DIFFERENTIAL Narrative: The following orders were created for panel order CBC w/ Diff. Procedure Abnormality Status --------- ------ CBC Auto Differential[[id number]] Final result Please view results for these tests on the individual orders. URINALYSIS HCG URINE, QUALITATIVE HEMOGLOBIN A1C CBC WITH AUTO DIFFERENTIAL Radiographic Imaging (if any) During ED Visit CT Head Without Contrast (Stroke) Final Result 1. No acute brain parenchymal abnormality, hemorrhage or mass lesion. 2. No skull fracture. 3. Low-lying cerebellar tonsils. Workstation ID: [id number] CT Angiogram Head Neck (STROKE) (Results Pending) MR Abbreviated Stroke (Results Pending) Medications Ordered/Given During ED Visit Medications sodium chloride (PF) (NS) flush 5 mL (has no administration in time range) And sodium chloride 0.9% (NS) (has no administration in time range) iopamidoL (ISOVUE-370) 370 mg iodine /mL (76 %) injection 75 mL (has no administration in time range) iopamidoL (ISOVUE-370) 370 mg iodine /mL (76 %) injection 50 mL (has no administration in time range) aspirin tablet 325 mg (has no administration in time range) ondansetron (ZOFRAN) injection 4 mg (has no administration in time range) sodium chloride 0.9% (NS) bolus 1,000 mL (has no administration in time range) diphenhydrAMINE (BENADRYL) injection 25 mg (25 mg Intravenous Given 09/03/22 1741) metoclopramide (REGLAN) injection 10 mg (10 mg Intravenous Given 09/03/22 1735) iopamidoL (ISOVUE-370) 370 mg iodine /mL (76 %) injection 75 mL (75 mL Intravenous Contrast Administered 09/03/22 170) PROCEDURES (if any, during ED visit): Procedures Review of Systems Constitutional: No fevers, no unexpected weight change Skin: No color changes Eyes: No discharge ENMT: No drooling Respiratory: No stridor Genitourinary: No dysuria Endocrine: No polyphagia Neurologic: No new face asymmetry Psychiatric: No self injury Hematologic/Lymphatic: No new easy bruising Allergic/Immunologic: No urticaria All systems reviewed negative except as mentioned above. Review of Systems Constitutional: Negative for fatigue and fever. Eyes: Positive for visual disturbance. Respiratory: Negative for cough, shortness of breath and wheezing. Neurological: Positive for headaches. Negative for weakness and numbness. Physical Exam Vital Signs During ED Visit (as charted by nursing) Patient Vitals for the past 24 hrs: BP Temp Temp src Pulse Resp SpO2 Weight 09/03/22 1730 137/85 -- -- 98 (!) 19 100 % -- 09/03/22 1715 (!) 141/91 -- -- (!) 108 (!) 19 99 % -- 09/03/22 1650 (!) 150/98 99.2 F (37.3 C) Oral (!) 115 (!) 22 -- 108.9 kg (240 lb) Physical Exam Vitals and nursing note reviewed. Constitutional: General: She is not in acute distress. Appearance: Normal appearance. She is normal weight. She is not ill-appearing, toxic-appearing or diaphoretic. HENT: Head: Normocephalic and atraumatic. Right Ear: External ear normal. Left Ear: External ear normal. Nose: Nose normal. No congestion or rhinorrhea. Mouth/Throat: Mouth: Mucous membranes are moist. Pharynx: Oropharynx is clear. No oropharyngeal exudate or posterior oropharyngeal erythema. Eyes: General: No scleral icterus. Right eye: No discharge. Left eye: No discharge. Extraocular Movements: Extraocular movements intact. Conjunctiva/sclera: Conjunctivae normal. Pupils: Pupils are equal, round, and reactive to light. Cardiovascular: Rate and Rhythm: Normal rate and regular rhythm. Pulses: Normal pulses. Heart sounds: Normal heart sounds. No murmur heard. No friction rub. No gallop. Pulmonary: Effort: Pulmonary effort is normal. No respiratory distress. Breath sounds: Normal breath sounds. No stridor. No wheezing, rhonchi or rales. Chest: Chest wall: No tenderness. Abdominal: General: There is no distension. Palpations: Abdomen is soft. There is no mass. Tenderness: There is no abdominal tenderness. There is no guarding or rebound. Hernia: No hernia is present. Musculoskeletal: General: No swelling, tenderness, deformity or signs of injury. Normal range of motion. Cervical back: Normal range of motion. No rigidity or tenderness. No muscular tenderness. Right lower leg: No edema. Left lower leg: No edema. Skin: General: Skin is warm. Capillary Refill: Capillary refill takes less than 2 seconds. Coloration: Skin is not jaundiced or pale. Findings: No bruising, erythema, lesion or rash. Neurological: General: No focal deficit present. Mental Status: She is alert and oriented to person, place, and time. Mental status is at baseline. Cranial Nerves: No cranial nerve deficit. Sensory: No sensory deficit. Motor: No weakness. NIH Scale: LOC: 0 - alert LOC Questions: 0 - answers both correctly LOC Commands: 0 - performs both correctly Best gaze: 0 - normal Vision: 0 - no visual loss Facial Palsy: 0 - normal Left arm: 0 - no drift Right arm; 0 - no drift Left le - no drift Right le - no drift Limb ataxia: 0 - absent Sensation: 0 - normal Best language: 0 - no aphasia Dysarthria: 0 - normal articulation Extinction and inattention: 0 - no neglect Stroke Scale: 0 Past Medical History Past Medical History: Diagnosis Date SVT (supraventricular tachycardia) (HCC) Vasovagal syncope Past Surgical History Past Surgical History: Procedure Laterality Date ABLATION WITH PHENOL BILAT. BREAST REDUCTION, FREE NIPPLE PROCEDURE CHOLECYSTECTOMY EP - DIAGNOSTIC N/A 01/02/2018 Procedure: Tilt Table; Surgeon: Omid Sharma MD; Location: [facility] EP LAB; Service: Cardiovascular EP STUDY N/A 09/08/2018 Procedure: EP Study Possible Complex Ablation SVT with CARTO; Surgeon: Alfred Sainz MD; Location: [facility] EP LAB; Service: Cardiovascular TONSILLECTOMY WISDOM TOOTH EXTRACTION Family History No family history on file. Social History Social History Socioeconomic History Marital status: Single Tobacco Use Smoking status: Never Smokeless tobacco: Never Vaping Use Vaping Use: Never used Substance and Sexual Activity Alcohol use: Yes Comment: soc Drug use: No Allergies No Known Allergies Medications Previous Medications Medication Sig ibuprofen (ADVIL,MOTRIN) 200 MG tablet Take 1 tablet by mouth every 6 to 8 hours as needed . nadolol (CORGARD) 40 MG tablet Take 1 (one) tablet (40 mg total) by mouth daily. (Patient taking differently: Take 40 mg by mouth 2 (two) times a day .) predniSONE (DELTASONE) 20 MG tablet Take 3 tabs PO x 3 days, then 2 tabs PO x 3 days, then 1 tab PO x 3 days . (Patient not taking: Reported on 03/30/2021 .) IMPRESSION: No diagnosis found. *Management decisions made amidst COVID-19 public health emergency* *Please note that portions of this note were created using [employer] voice recognition software.* Lisseth Henderson MD 09/03/221751 [facility] Work Phone: 09-03-2022 Consult note Formatting of th is note is different from the original. Stroke Team STEVAN Initial Triage Note [facility] 09/03/2022 Lisette Garcia CNP [facility] Patient: Juan Antonio Guerin Date of : 1995 (27 y.o. female) Referring Provider: Refer to consult order in electronic medical record PCP: Mely Hudson MD ASSESSMENT: 27 y.o. female with history of SVT and vasovagal syncope presented to [facility] [facility] on 09/03/2022 with what was described as transient right monocular visual field cuts followed by headache and nausea. CT head and CTA head/neck were non-acute. PLAN: Transient neurological symptoms Headache Etiology: Complex migraine vs TIA/CVA NO acute stroke treatments The patient IS NOT a candidate for IV thrombolytics due to resolution of symptoms, NIHSS 0. The patient IS NOT a candidate for endovascular/IA/RABIA treatment due to no intravascular target. Attending Service will need to electronically order a Neurology consult for ongoing inpatient Neurology care. Disposition: Recommend OTILIA Admission Order Set: To be completed by Attending Service. Other Order Sets: Stroke & TIA without Thrombolytic or Intervention orders completed. Recommend migraine cocktail Testing: Abbreviated MRI. Labs: A1c, Lipid panel (Fasting) Anti-thrombotic: ASA 325 mg once for now. Anti-lipid Agent: Await completion of evaluation/testing to determine if appropriate to treat BP Goal: Less than 220/110 for initial 24 hrs of admit/onset of stroke-like symptoms, then gradual steady reduction to normotension; AVOID hypotension; Attending Service to manage Glucose Goal: Normoglycemia/ A1c less than 6.5. Attending Service to manage. Tobacco: Counseled to not smoke/use tobacco. Attending Service to manage. Therapy: PT, OT evaluation. ST evaluation for swallow and speech/language/cognition. DVT Prophylaxis: DVT prophylaxis per Attending Service. Answered questions and rediscussed plan at length with Patient. Covering neurologist: Dr. Carpio. Discussed plan with other teams' providers, specifically Dr. Henderson. DIAGNOSTIC TESTING SUMMARY: -CT head: No acute intracranial abnormality. -CTA head/neck: No LVO, dissection, or significant stenosis. Lab Results Component Value Date HGBA1C 4.8 01/25/2020 SUBJECTIVE: Chief Complaint/Reason for Consult: right visual field loss Informant(s): Patient, Care Team/Chart History of Present Illness: Juan Antonio Guerin is a 27 y.o. female with past medical history of SVT and vasovagal syncope presented with transient right visual field loss followed by headache. 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 She then developed an occipital headache and nausea. The vision returned however she reported blurred peripheral vision in her right eye. Denied prior similar episodes, TIA/CVA, migraines, seizures. No associated numbness, tingling, weakness, dizziness, hearing changes, chest pain, or shortness of breath. Examined by ED physician on arrival with subsequent stroke alert called. Blood pressure 150/98. Blood glucose 80. NIHSS 0. No focal deficits on exam. Continued to report blurred vision and headache. Time: Last known well (date & time): 1545 09/03/22 Stroke Alert called: 1650 Stroke Team STEVAN at bedside: 1653 Patient arrival: 1638 Treatments: See A&P Review of Systems: All systems reviewed and negative except pertinent positives and negatives documented in the History of Present Illness (HPI). History: Past Medical History: Diagnosis Date SVT (supraventricular tachycardia) (HCC) Vasovagal syncope Past Surgical History: Procedure Laterality Date ABLATION WITH PHENOL BILAT. BREAST REDUCTION, FREE NIPPLE PROCEDURE CHOLECYSTECTOMY EP - DIAGNOSTIC N/A 01/02/2018 Procedure: Tilt Table; Surgeon: Omid Sharma MD; Location: [facility] EP LAB; Service: Cardiovascular EP STUDY N/A 09/08/2018 Procedure: EP Study Possible Complex Ablation SVT with CARTO; Surgeon: Alfred Sainz MD; Location: [facility] EP LAB; Service: Cardiovascular TONSILLECTOMY WISDOM TOOTH EXTRACTION Social History: reports that she has never smoked. She has never used smokeless tobacco. She reports current alcohol use. She reports that she does not use drugs. No family history on file. Additional History Comments: None Allergies: Patient has no known allergies. HOME Medications: No outpatient medications have been marked as taking for the 09/03/22 encounter (Hospital Encounter). 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: Does Not Follow Commands NANCIE: Unable to Assess GENERAL: General Appearance: In NAD Eyes: See pupils below Ears: See hearing below Neck: Supple Respiratory Effort: Normal Extremities: No edema Skin: No rashes visualized MENTAL STATUS: Alertness, Attention Span & Concentration: Normal Language: Normal Speech: Normal Orientation: Normal Memory, Recent & Remote: Normal Fund of Knowledge: Normal CRANIAL NERVES: II - Visual Gorman: Normal II, III - Pupils: PERRL III, IV, - Eye Movements: Normal (EOMI, no ptosis, no nystagmus) V - Facial Sensation: Normal VII - Face Symmetry and Strength: Normal VIII - Hearing: Normal IX, X - Palate: Normal XI - Shoulder Shrug: Normal XII - Tongue Protrusion: Normal COORDINATION & GROSS MOTOR: Abnormal Movements: None Coordination Agzrjv-gk-Nkiy: Normal Coordination: Wyay-Ukio-Avxc:Normal Rapid Alternating Movements: Normal Drift: None Tone: Normal Bulk: Normal MOTOR - MUSCLE STRENGTH: Right Limb Left GOOD movement - purposeful Upper GOOD movement - purposeful GOOD movement - purposeful Lower GOOD movement - purposeful MOTOR FARMER: 5 Normal (Normal Power) 4 Mild Weakness (Movement against moderate resistance over a full range of motion) 3 Moderate Weakness (Movement against gravity over almost full range of motion) 2 Severe Weakness (Movement with gravity eliminated over almost full range of motion) 1 Trace Movement (flicker of contraction visible or palpable) 0 No Movement (No contraction visible or palpable) NANCIE Unable to Assess SENSATION: Fine Touch: Normal OTHER: Stroke Assessment - 09/03/22 1708 NIH Stroke Scale Interval Baseline Level of Consciousness (1a.) 0 LOC Questions (1b.) 0 LOC Commands (1c.) 0 Best Gaze (2.) 0 Visual (3.) 0 Facial Palsy (4.) 0 Motor Arm, Left (5a.) 0 Motor Arm, Right (5b.) 0 Motor Leg, Left (6a.) 0 Motor Leg, Right (6b.) 0 Limb Ataxia (7.) 0 Sensory (8.) 0 Best Language (9.) 0 Dysarthria (10.) 0 Extinction and Inattention (11.) (Formerly Neglect) 0 Total 0 MRS: 0 [employer] Work Phone: 09-03-2022 Note Formatting of this n ote might be different from the original. Stroke alert [employer] note 27-year-old female is seen through [employer] when stroke alert is called at [facility] emergency room. Patient describes no history of headache or migraine but she developed sudden onset of right hemifield visual deficit which she describes as black initially but now is colored. This is now associated with headache and nausea. Neurological examination observed by me and completed by acute stroke response team STEVAN is normal. Specifically, there is no hemianopia or visual field deficit. The presentation of this patient is most likely due to migraine headache associated with visual disturbance. She is not a candidate for IV thrombolysis or other stroke interventions due to normal neurological exam. Since this is her first presentation based on her history with current symptoms, it is reasonable to obtain CT head, CT angiography of head and neck and if no significant vasculopathy is identified, she will need admission to observation unit for MRI brain and neurology consult. [facility] Work Phone: 09-03-2022 Emergency department Note STROKE ALERT LEVEL 1 CALLED AT 1649 [facility] 09-03-2022 Emergency department Triage note Pt presents to ED via EMS with c/o visual disturbance, sudden onset on headache, and nausea. 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 Pt got out of bed to answer door when she returned to bunk sudden onset headache on occipital area and right eye peripheral vision loss. Physician notified. No unilateral weakness, no slurred speech, no facial droop. [facility] 09-03-2022 Emergency department Note Bed: 17 Expected date: Expected time: Means of arrival: Comments: [employer] [place] [facility] 07-09-2022 History of Present illness Narrative Radiology Service Progress Note PATIENT NAME: Juan Antonio Guerin DATE OF SERVICE: July 09, 2022 TIME: 1:38 PM PATIENT IDENTITY VERIFICATION COMPLETED USING TWO (2) IDENTIFIERS: Name and Date of confirmed by patient verbally. FALL SCREENING: Has the patient had 2 falls in the last year or 1 fall with injury or currently using an Ambulatory Assistive Device (Walker, Cane, Wheelchair, Crutches, etc.)? No PATIENT GENDER DATA: Female. status: : No status: NO. PATIENT RELEVANT IMPLANT DATA REVIEWED: Not Applicable RADIOLOGY DEPARTMENT: Ultrasound PERIPHERAL IV DATA: Not applicable SIGNED BY: RT Cathy(R) July 09, 2022 1:38 PM documented in this encounter [facility] 07-02-2022 Instructions Natali Brunson APRN.SHERRY - 07/02/2022 10:31 AM EDT Management of Benign Breast Pain / Fibrocystic Changes Decrease or avoid intake of caffeine, including coffee, teas, sodas, and chocolate. Decrease or avoid nicotine. Wear a support or sports (not underwire) bra. Take ihaq-fko-ovybrwp ibuprofen (Advil/Motrin) or other NSAIDs, such as naproxen (Aleve). Take 3 grams (3000 mg.) of evening primrose oil (available ptna-nue-nbwzchk) in divided doses for 2 months. Take warm showers. Use warm compresses. 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 Pain is dull, achy intermittent to inner center of breast behind nipple. Left nipple sensitivity and burning to air x 2 weeks Thought that nipple was just chapped but it has not improved. Has tried using petroleum jelly but not lately. Since having Nexplanon removed, has had changes such as breast pain and Yesterday noticed bruising to inner right breast. Her history includes: family history of breast CA - MGAunt, .breast reduction 2013. Bilateral nipple piercing - x 1 year OBJECTIVE: NECK: normal thyroid Chest: normal inspiratory effort BREASTS: Symmetrical to inspection., No dimpling or skin changes., Normal nipples without discharge., No axillary lymphadenopathy. Tenderness to left breast between 4-8 o'clock. Bilateral nipple piercing with no erythema ASSESSMENT/PLAN: 1. Mastalgia - ICD9: 611.71, ICD10: N64.4 - left breast x 3 weeks - [facility] DIAGNOSTIC [facility] - BREAST LTD LT Will notify of results. Follow- up as needed. Natali Brunson APRN.SHERRY Medical Decision Making: Problems: Moderate: New problem with uncertain prognosis Data: Unique test(s) ordered: 2 Medical Decision Making Level: 3 - Low documented in this encounter [facility] 07-01-2022 Miscellaneous Notes Appointment scheduled. Eve Tesfaye RN documented in this encounter [facility] 03-20-2021 Instructions Marisol White PA-C - 03/20/2021 1:34 PM EDT Images from the original note were not included. Follow up with PCP in 5-7 days or sooner if needed. You can return to the Urgent Care if your symptoms change in nature or do not improve within 3-5 days. Take all medication(s) as directed. Avoid NSAID medications (i.e. Ibuprofen (Advil, Motrin) or Aleve (Naproxen)) while taking steroid medication (Prednisone or Medrol). Recommend taking Tylenol (acetaminophen) as needed for fever or pain/discomfort. Advise taking an OTC antihistamine (ie. Benadryl, zyrtec, migue) daily, as needed. If you develop any new or worsening symptoms, persistent fevers with temp >100F, chest pain, shortness of breath, abdominal pain or vomiting, go to the nearest ER for evaluation. Dermatitis: Care Instructions Your Care Instructions Dermatitis is the general name used for any rash or inflammation of the skin. Different kinds of dermatitis cause different kinds of rashes. Common causes of a rash include new medicines, plants (such as poison oak or poison kirk), heat, and stress. Certain illnesses can also cause a rash. An allergic reaction to something that touches your skin, such as latex, nickel, or poison kirk, is called contact dermatitis. Contact dermatitis may also be caused by something that irritates the skin, such as bleach, a chemical, or soap. These types of rashes cannot be spread from person to person. How long your rash will last depends on what caused it. Rashes may last a few days or months. Follow-up care is a farmer part of your treatment and safety. Be sure to make and go to all appointments, and call your doctor if you are having problems. It's also a good idea to know your test results and keep a list of the medicines you take. How can you care for yourself at home? Do not scratch the rash. Cut your nails short, and file them smooth. Or wear gloves if this helps keep you from scratching. Wash the area with water only. Pat dry. Put cold, wet cloths on the rash to reduce itching. Keep cool, and stay out of the sun. Leave the rash open to the air as much as possible. If the rash itches, use hydrocortisone cream. Follow the directions on the label. Calamine lotion may help for plant rashes. Take an tuye-mfs-xkwbqdq antihistamine, such as diphenhydramine (Benadryl) or loratadine (Claritin), to help calm the itching. Read and follow all instructions on the label. If your doctor prescribed a cream, use it as directed. If your doctor prescribed medicine, take it exactly as directed. When should you call for help? Call your doctor now or seek immediate medical care if: You have symptoms of infection, such as: ? Increased pain, swelling, warmth, or redness. ? Red streaks leading from the area. ? Pus draining from the area. ? A fever. You have joint pain along with the rash. Watch closely for changes in your health, and be sure to contact your doctor if: Your rash is changing or getting worse. You are not getting better as expected. Where can you learn more? Log into your personal health record on https://[email or web address].WeStore and enter F270 in the Education box to learn more about Dermatitis: Care Instructions. Current as of: April 20, 2020 Content Version: 12.8 [employer]. Care instructions adapted under license by your healthcare professional. If you have questions about a medical condition or this instruction, always ask your healthcare professional. [employer] disclaims any warranty or liability for your use of this information. documented in this encounter [facility] 03-20-2021 History of Present illness Narrative Images from the original note were not included. Patient Name: [facility] Location: Juan Antonio Guerin [address] [place] [address] Date Of : Date Of Visit: 1995 03/20/2021 MRN# Provider: [id number] Marisol White PA-C Chief Complaint Patient presents with Rash rash on back of both legs, tops of thighs and back of both arms for about a week and half Assessment & Plan 1. Rash and nonspecific skin eruption predniSONE (DELTASONE) 20 MG tablet hydrOXYzine (ATARAX) 25 MG tablet No follow-ups on file. Medical Decision Making After evaluating patients rash, discussed differentials of possible allergic vs. Contact dermatitis. Will start her on course of prednisone, as well as hydroxyzine to take as needed for itching. Advised patient to avoid NSAID medications (i.e. Ibuprofen (Advil, Motrin) or Aleve (Naproxen)) while taking steroid medication (Prednisone or Medrol). Recommend taking Tylenol as needed for fever or pain/discomfort. Encouraged her to continue taking an OTC antihistamine daily. Additional Clinical Comments Discussed over the counter medications for symptomatic management and side effects of medications. Recommended taking all medications with food and to stop medications if they develop any signs of an allergic reaction. Educated patient and/or guardian about signs and symptoms that would warrant further immediate evaluation. Recommended that they should return to urgent care, make an appointment with their family physician, or go to the emergency room if symptoms persist or get acutely worse. Recommended follow up within the next week with their PCP or to get established with a PCP soon in order to follow up appropriately. Subjective 26 y.o. female presents with Rash (rash on back of both legs, tops of thighs and back of both arms for about a week and half) Rash This is a new problem. Episode onset: 10 days. The problem is unchanged. The affected locations include the left arm, left wrist, right hand, right upper leg, right lower leg, right arm, left lower leg and left upper leg. The rash is characterized by redness and itchiness. It is unknown if there was an exposure to a precipitant. Pertinent negatives include no anorexia, congestion, cough, diarrhea, eye pain, facial edema, fatigue, fever, joint pain, nail changes, rhinorrhea, shortness of breath, sore throat or vomiting. Treatments tried: Benadryl, claritin. The treatment provided no relief. Review Of Systems Review of Systems Constitutional: Negative for chills, diaphoresis, fatigue and fever. HENT: Negative for congestion, ear pain, facial swelling, rhinorrhea, sore throat, trouble swallowing and voice change. Eyes: Negative for pain. Respiratory: Negative for cough, chest tightness, shortness of breath and stridor. Cardiovascular: Negative for chest pain and palpitations. Gastrointestinal: Negative for abdominal pain, anorexia, constipation, diarrhea, nausea and vomiting. Musculoskeletal: Negative for arthralgias, joint pain, joint swelling and myalgias. Skin: Positive for rash. Negative for nail changes. Neurological: Negative for weakness, numbness and headaches. Medical History Past Medical History: Diagnosis Date SVT (supraventricular tachycardia) (HCC) Vasovagal syncope Past Surgical History: Procedure Laterality Date ABLATION WITH PHENOL BILAT. BREAST REDUCTION, FREE NIPPLE PROCEDURE CHOLECYSTECTOMY EP - DIAGNOSTIC N/A 01/02/2018 Procedure: Tilt Table; Surgeon: Omid Sharma MD; Location: [facility] EP LAB; Service: Cardiovascular EP STUDY N/A 09/08/2018 Procedure: EP Study Possible Complex Ablation SVT with CARTO; Surgeon: Alfred Sainz MD; Location: [facility] EP LAB; Service: Cardiovascular TONSILLECTOMY WISDOM TOOTH EXTRACTION Patient Active Problem List Diagnosis Sinus tachycardia Palpitations Syncope Social History Social History Tobacco Use Smoking status: Never Smoker Smokeless tobacco: Never Used Vaping Use Vaping Use: Never used Substance Use Topics Alcohol use: Yes Comment: soc Drug use: No Family History History reviewed. No pertinent family history. Objective Physical Exam BP 116/78 Pulse (!) 101 Temp 97.6 F (36.4 C) Resp 18 Ht 5' 8 Wt 90.7 kg (200 lb) SpO2 98% No BMI 30.41 kg/m Vision/Hearing Exam:No exam data present Physical Exam Vitals reviewed. Constitutional: General: She is awake. She is not in acute distress. Appearance: Normal appearance. She is well-developed. She is not toxic-appearing. HENT: Head: Normocephalic and atraumatic. Cardiovascular: Rate and Rhythm: Normal rate and regular rhythm. Heart sounds: Normal heart sounds. Pulmonary: Effort: Pulmonary effort is normal. No accessory muscle usage or respiratory distress. Breath sounds: Normal breath sounds and air entry. No decreased breath sounds, wheezing, rhonchi or rales. Abdominal: General: Bowel sounds are normal. Musculoskeletal: Cervical back: Normal range of motion and neck supple. Skin: General: Skin is warm. Findings: Rash present. Rash is papular. Comments: Few, erythematous papules noted along posterior upper arms bilat, radial aspect of left wrist, dorsal aspect of left hand, anterior thighs and calves bilat. Lesions are non-tender to palpation. No active bleeding or discharge noted. Neurological: Mental Status: She is alert and oriented to person, place, and time. Psychiatric: Behavior: Behavior is cooperative. Procedure Notes Procedures Results No results found for this or any previous visit (from the past 168 hour(s)). No orders to display Orders Placed This Visit No orders of the defined types were placed in this encounter. Medication List At End Of Visit Current Outpatient Medications Medication Sig Dispense Refill ibuprofen (ADVIL,MOTRIN) 200 MG tablet Take 1 tablet by mouth every 6 to 8 hours as needed . nadolol (CORGARD) 40 MG tablet Take 1 (one) tablet (40 mg total) by mouth daily. (Patient taking differently: Take 40 mg by mouth 2 (two) times a day .) 30 tablet 11 hydrOXYzine (ATARAX) 25 MG tablet Take 1 (one) tablet (25 mg total) by mouth 3 (three) times a day as needed for itching . 30 tablet 0 predniSONE (DELTASONE) 20 MG tablet Take 3 tabs PO x 3 days, then 2 tabs PO x 3 days, then 1 tab PO x 3 days . 18 tablet 0 No current facility-administered medications for this visit. Patient Instructions Follow up with PCP in 5-7 days or sooner if needed. You can return to the Urgent Care if your symptoms change in nature or do not improve within 3-5 days. Take all medication(s) as directed. Avoid NSAID medications (i.e. Ibuprofen (Advil, Motrin) or Aleve (Naproxen)) while taking steroid medication (Prednisone or Medrol). Recommend taking Tylenol (acetaminophen) as needed for fever or pain/discomfort. Advise taking an OTC antihistamine (ie. Benadryl, zyrtec, migue) daily, as needed. If you develop any new or worsening symptoms, persistent fevers with temp >100F, chest pain, shortness of breath, abdominal pain or vomiting, go to the nearest ER for evaluation. Dermatitis: Care Instructions Your Care Instructions Dermatitis is the general name used for any rash or inflammation of the skin. Different kinds of dermatitis cause different kinds of rashes. Common causes of a rash include new medicines, plants (such as poison oak or poison kirk), heat, and stress. Certain illnesses can also cause a rash. An allergic reaction to something that touches your skin, such as latex, nickel, or poison kirk, is called contact dermatitis. Contact dermatitis may also be caused by something that irritates the skin, such as bleach, a chemical, or soap. These types of rashes cannot be spread from person to person. How long your rash will last depends on what caused it. Rashes may last a few days or months. Follow-up care is a farmer part of your treatment and safety. Be sure to make and go to all appointments, and call your doctor if you are having problems. It's also a good idea to know your test results and keep a list of the medicines you take. How can you care for yourself at home? Do not scratch the rash. Cut your nails short, and file them smooth. Or wear gloves if this helps keep you from scratching. Wash the area with water only. Pat dry. Put cold, wet cloths on the rash to reduce itching. Keep cool, and stay out of the sun. Leave the rash open to the air as much as possible. If the rash itches, use hydrocortisone cream. Follow the directions on the label. Calamine lotion may help for plant rashes. Take an ejjv-bln-wlediva antihistamine, such as diphenhydramine (Benadryl) or loratadine (Claritin), to help calm the itching. Read and follow all instructions on the label. If your doctor prescribed a cream, use it as directed. If your doctor prescribed medicine, take it exactly as directed. When should you call for help? Call your doctor now or seek immediate medical care if: You have symptoms of infection, such as: ? Increased pain, swelling, warmth, or redness. ? Red streaks leading from the area. ? Pus draining from the area. ? A fever. You have joint pain along with the rash. Watch closely for changes in your health, and be sure to contact your doctor if: Your rash is changing or getting worse. You are not getting better as expected. Where can you learn more? Log into your personal health record on [email or web address] and enter F270 in the Education box to learn more about Dermatitis: Care Instructions. Current as of: April 20, 2020 Content Version: 12.8 [employer]. Care instructions adapted under license by your healthcare professional. If you have questions about a medical condition or this instruction, always ask your healthcare professional. [employer] disclaims any warranty or liability for your use of this information. documented in [facility] encounter [facility] documented in this encounter [facility] note* Diagnosis Mastalgia- Primary Mastodynia [facility]* Diagnosis Mastalgia Mastodynia documented in this encounter [facility] note* Diagnosis Transient neurological symptoms- Primary Visual changes Acute nonintractable headache, unspecified headache type Hypertension, unspecified type documented in this encounter [facility] note* Diagnosis Encounter for gynecological examination with abnormal finding- Primary Routine gynecological examination Irregular menstrual cycle Hirsutism Class 3 severe obesity with body mass index (BMI) of 40.0 to 44.9 in adult, unspecified obesity type, unspecified whether serious comorbidity present ([facility]) Encounter for screening for human papillomavirus (HPV) Special screening examination for human papillomavirus (HPV) Screening for cervical cancer Screening for malignant neoplasm of the cervix Screen for STD (sexually transmitted disease) Screening examination for venereal disease Need for prophylactic vaccination/inoculation against viral disease Need for prophylactic vaccination and inoculation against other viral diseases documented in this encounter [facility] note* Diagnosis Irregular menstrual cycle Hirsutism documented in this encounter [facility] note* Diagnosis Abnormal uterine bleeding (AUB)- Primary Pelvic cramping Unspecified symptom associated with female genital organs documented in this encounter [facility] note* Diagnosis Migraine with aura, not intractable, without status migrainosus- Primary documented in this encounter [facility] note* Diagnosis Abnormal uterine bleeding (AUB) Pelvic cramping Unspecified symptom associated with female genital organs documented in this encounter [facility] note* Diagnosis Abnormal uterine bleeding- Primary Unspecified disorder of menstruation and other abnormal bleeding from female genital tract Endometrial polyp Polyp of corpus uteri documented in this encounter [facility] note* Diagnosis Endometrial polyp- Primary Polyp of corpus uteri Abnormal uterine bleeding (AUB) Pre-op exam Preoperative examination, unspecified documented in this encounter [facility] for referral (narrative)* Diagnostic Procedure Only (Routine) - Authorized Specialty Diagnoses / Procedures Referred By Tung t Referred To Contact [facility] IM[facility] Diagnoses Mastalgia Procedures US BREAST LTD LT US BREAST UNI REAL TIME WITH IMAGE LIMITED Natali Brunson APRN.FLEXIBLE MACHINING SYSTEM MACHINIST [address] [place] [address] [facility] [address] [id number] Referral ID Status Reason Start Date Expiration Date Visits Requested Visits Authorized [id number] Authorized Auto-Generat ed Referral 07/02/2022 08/01/2023 1 1 * Diagnostic Procedure Only (Routine) - Pending Review Specialty Diagnoses / Procedures Referred By Tung abernathy Referred To Contact [facility] Diagnoses Mastalgia Procedures LAYLA DIAGNOSTIC LT DIAGNOSTIC MAMMOGRAPHY COMPUTER-AIDED DETCJ UNI Natali Brunson APRN.FLEXIBLE MACHINING SYSTEM MACHINIST [address] [place] [address] [facility] [address] [place] [address] Referral ID Status Reason Start Date Expiration Date Visits Requested Visits Authorized [id number] Pending Review Auto-Generat ed Referral 07/02/2022 08/01/2023 1 1 [facility] for referral (narrative)* Diagnostic Procedure Only (Routine) - Closed Specialty Diagnoses / Procedures [facility] To Contact [facility] Diagnoses Mastalgia Procedures US BREAST LTD RT US BREAST UNI REAL TIME WITH IMAGE LIMITED Aditi Owens APRN.CNM [address] [place] [address] [facility] [address] [place] [address] Referral ID Status Reason Start Date Expiration Date V isits Requested Visits Authorized [id number] Closed Auto-Generate d Referral 07/12/2022 08/04/2023 1 1 * Diagnostic Procedure Only (Routine) - Closed Specialty Diagnoses / Procedures Referred By Contac t Referred To Contact [facility] IM[facility] Diagnoses Mastalgia Procedures US BREAST LTD LT US BREAST UNI REAL TIME WITH IMAGE LIMITED Natali Brunson APRN.FLEXIBLE MACHINING SYSTEM MACHINIST [address] [place] [address] [facility] [address] [place] [address] Referral ID Status Reason Start Date Expiration Date V isits Requested Visits Authorized [id number] Closed Auto-Generate d Referral 07/02/2022 08/01/2023 1 1 [facility] for referral (narrative)* Diagnostic Procedure Only (Routine) - Authorized Specialty Diagnoses / Procedures Referred By Contac t Referred To Contact [facility] IMAGING Diagnoses Irregular menstrual cycle Hirsutism Procedures US FEMALE PELVIS TRANSVAG US TRANSVAGINAL Natali Brunson APRN.FLEXIBLE MACHINING SYSTEM MACHINIST [address] [place] [address] Us Imaging Referral ID Status Reason Start Date Expiration Date Visits Requested Visits Authorized [id number] Authorized Auto-Generat ed Referral 12/23/2022 01/22/2024 1 1 * Diagnostic Procedure Only (Routine) - Pending Review Specialty Diagnoses / Procedures Referred By Contac t Referred To Contact [facility] Diagnoses Irregular menstrual cycle Hirsutism Procedures PELVIC US WHI US PELVIC NONOBSTETRIC REAL-TIME IMAGE COMPLETE Natali Brunson APRN.FLEXIBLE MACHINING SYSTEM MACHINIST [address] [place] [place] [address] [address] Referral ID Status Reason Start Date Expiration Date Visits Requested Visits Authorized [id number] Pending Review Auto-Generat ed Referral 12/23/2022 12/23/2023 1 1 [facility] for referral (narrative)* Diagnostic Procedure Only (Routine) - Closed Specialty Diagnoses / Procedures Referred By Contac t Referred To Contact US IMAGING Diagnoses Irregular menstrual cycle Hirsutism Procedures US FEMALE PELVIS TRANSVAG US TRANSVAGINAL Natali Brunosn APRN.CNP [address] [place] [address] Us Imaging [facility] Referral ID Status Reason Start Date Expiration Date V isits Requested Visits Authorized [id number] Closed Auto-Generate d Referral 12/23/2022 01/22/2024 1 1 [facility] for referral (narrative)* Outpatient Procedure (Routine) - Authorized Specialty Diagnoses / Procedures Referred By Contac t Referred To Contact [facility] Diagnoses Abnormal uterine bleeding (AUB) Procedures ENDOMETRIAL BIOPSY ENDOMETRIAL BX W/WO ENDOCERVIX BX W/O DILAT SPX Nir Anne MD [address] [place] [address] [address] Referral ID Status Reason Start Date Expiration Date Visits Requested Visits Authorized [id number] Authorized Auto-Generat ed Referral 08/26/2023 08/25/2024 1 1 * Diagnostic Procedure Only (Routine) - Authorized Specialty Diagnoses / Procedures Referred By Contac t Referred To Contact US IMAGING Diagnoses Abnormal uterine bleeding (AUB) Pelvic cramping Procedures US FEMALE PELVIS TRANSABD LTD US PELVIC NONOBSTETRIC IMAGE BARNEY LIMITED/F/U Nir Anne MD [address] [place] [address] [place] [address] Referral ID Status Reason Start Date Expiration Date Visits Requested Visits Authorized [id number] Authorized Auto-Generat ed Referral 08/26/2023 09/24/2024 1 1 * Diagnostic Procedure Only (Routine) - Authorized Specialty Diagnoses / Procedures Referred By Contac t Referred To Contact [facility] IMAGING Diagnoses Abnormal uterine bleeding (AUB) Pelvic cramping Procedures US FEMALE PELVIS TRANSVAG US TRANSVAGINAL Nir Anne MD [address] [place] [address] [place] [address] Referral ID Status Reason Start Date Expiration Date Visits Requested Visits Authorized [id number] Authorized Auto-Generat ed Referral 08/26/2023 09/24/2024 1 1 [facility] for referral (narrative)* Diagnostic Procedure Only (Routine) - Closed Specialty Diagnoses / Procedures Referred By Tung t Referred To Contact US IMAGING Diagnoses Abnormal uterine bleeding (AUB) Pelvic cramping Procedures US FEMALE PELVIS TRANSABD LTD US PELVIC NONOBSTETRIC IMAGE BARNEY MENSAH/F/U Nir Anne MD [address] [place] [address] [place] [address] Referral ID Status Reason Start Date Expiration Date V isits Requested Visits Authorized [id number] Closed Auto-Generate d Referral 08/26/2023 09/24/2024 1 1 * Diagnostic Procedure Only (Routine) - Closed Specialty Diagnoses / Procedures Referred By Contac t Referred To Contact US IMAGING Diagnoses Abnormal uterine bleeding (AUB) Pelvic cramping Procedures US FEMALE PELVIS TRANSVAG US TRANSVAGINAL Nir Anne MD [address] [place] [address] [facility] [address] Referral ID Status Reason Start Date Expiration Date V isits Requested Visits Authorized [id number] Closed Auto-Generate d Referral 08/26/2023 09/24/2024 1 1 [facility] Assessments Diagnosis Syncope, unspecified syncope type Diagnosis Palpitations - Primary Pleuritic chest pain Painful respiration Diagnosis Palpitations Syncope, unspecified syncope type Diagnosis Dyspnea, unspecified type Discharge Instructions * Maryan Casanova MD - 01/12/2018 Please follow up with your family physician or the referral physicians as discussed regarding this emergency department visit. If you do not have a family physician, you may find a provider through the [facility] Physician Referral Service by calling [phone] ([phone]) or by visiting [email or web address]. Return for reevaluation for any worsening of your symptoms or if you have any other problems or concerns. I hope you feel better soon. Thank you for allowing us to be involved in your care today. Appropriate followup is essential in your continued care after today's visit. If you had any diagnostic studies (labs, xrays, CAT scans orultrasounds) done in the emergency department, please review them with your family physician since there may be results that require further follow up or investigation. The physician and staff of the Emergency Department would like to thank you for choosing our facility for your health care needs. Our goal is to provide exceptional service. You may be receiving a survey in the mail following your visit. Because your feedback is very important to us, we hope you will take the time to complete and return the survey. If for any reason, you feel that you cannot rateus VERY GOOD or 5 for the service you received today, please let us know prior to your discharge. We are here 24 hours a day, 7 days a week, and are always here for you. You should increase your atenolol to 50mg daily. Please make sure you are drinking extra water and fluids. Please follow up with [facility] as planned. Return for reevaluation for any worsening symptoms or for any other problems or concerns. The following attachments cannot be sent through Care Everywhere. * PALPITATIONS (IRISH) * CARDIAC ARRHYTHMIA (IRISH) * CHEST PAIN (IRISH) in this encounter* Sol Geller RN - 09/08/2018 Formatting of this note may be different from the original. Sedation for a Medical Procedure: Care Instructions Your Care Instructions For a minor procedure or surgery, you will get a sedative to help you relax. This drug will make you sleepy. It is usually given in a vein (by IV). A shot may also be used to numb the area. If you had local anesthesia, you may feel some pain and discomfort as it wears off. If you have pain, don't be afraid to say so. Pain medicine works better if you take it before the pain gets bad. Common side effects from sedation include: Feeling sleepy. (Your doctors and nurses will make sure you are not too sleepy to go home.) Nausea and vomiting. This usually does not last long. Feeling tired. Follow-up care is a farmer part of your treatment and safety. Be sure to make and go to all appointments, and call your doctor if you are having problems. It's also a good idea to know your test resultsand keep a list of the medicines you take. How can you care for yourself at home? Activity ? Don't do anything for 24 hours that requires attention to detail. It takes time for the medicine effects to completely wear off. ? For your safety, you should not drive or operate any machinery that could be dangerous until the medicine wears off and you can think clearly and react easily. ? Rest when you feel tired. Getting enough sleep will help you recover. Diet ? You can eat your normal diet, unless your doctor gives you other instructions. If your stomach isupset, try clear liquids and bland, low-fat foods like plain toast or rice. ? Drink plenty of fluids (unless your doctor tells you not to). ? Don't drink alcohol for 24 hours. Medicines ? Be safe with medicines. Read and follow all instructions on the label. If the doctor gave you a prescription medicine for pain, take it as prescribed. If you are not taking a prescription pain medicine, ask your doctor if you can take an qcde-[id number]-[id number] medicine. ? If you think your pain medicine is making you sick to your stomach: Take your medicine after meals (unless your doctor has told you not to). Ask your doctor for a different pain medicine. When should you call for help? Call 911 anytime you think you may need emergency care. For example, call if: ? You have severe trouble breathing. ? You passed out (lost consciousness). ?Call your doctor now or seek immediate medical care if: ? You have trouble breathing. ? You have ongoing or worsening nausea or vomiting. ? You have a fever. ? You have a new or worse headache. ? The medicine is not wearing off and you can't think clearly. ?Watch closely for changes in your health, and be sure to contact your doctor if: ? You do not get better as expected. Where can you learn more? Log into your personal health record on [email or web address] and enter G817 in the Education box to learn more about Sedation for a Medical Procedure: Care Instructions. Current as of: June 29, 2017 Content Version: 11.6 0903-3011 [employer]. Care instructions adapted under license by your healthcare professional. If you have questions about a medical condition or this instruction, always ask your healthcare professional. [employer] disclaims any warranty or liability for your use of this information. in this encounter* Attachments The following attachments cannot be sent through Care Everywhere. 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 Advance Directives and Livin g Will 03/01/2020 12:17 AM Latest Code Status on File Code Status Date Activated Date Inactivated Comments Full Code 09/08/2018 1:04 PM 02/29/2020 11:27 PM Full Code - Unverified 08/24/2018 10:51 AM 09/08/2018 9 :12 AM Full Code 01/02/2018 3:05 PM 01/12/2018 6:01 PM Full Code 01/02/2018 8:58 AM 01/02/2018 3:05 PM Full Code 01/02/2018 5:17 AM 01/02/2018 8:58 AM Documents on File Type Date Recorded 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 Advance Directives and Ricky lloyd Will 08/09/2020 1:40 AM Latest Code Status on File Date Activated Date Inactivated Comments 09/03/2022 8:41 PM 09/04/2022 2:13 PM Full Code Date Activated Date Inactivated Comments 09/08/2018 1:04 PM 02/29/2020 11:27 PM Full Code - Unverified Date Activated Date Inactivated Comments 08/24/2018 10:51 AM 09/08/2018 9:12 AM Full Code Date Activated Date Inactivated Comments 01/02/2018 3:05 PM 01/12/2018 6:01 PM Full Code Date Activated Date Inactivated Comments 01/02/2018 8:58 AM 01/02/2018 3:05 PM Latest Code Status on File Code Status Date Activated Date Inactivated Comments Full Code 09/03/2022 8:41 PM 09/04/2022 2:13 PM Code Status History Code Status Date Activated Date Inactivated Comments Full Code 09/08/2018 1:04 PM 02/29/2020 11:27 PM Full Code - Unverified 08/24/2018 10:51 AM 09/08/2018 9 :12 AM Full Code 01/02/2018 3:05 PM 01/12/2018 6:01 PM Full Code 01/02/2018 8:58 AM 01/02/2018 3:05 PM Additional Source Comments Transfer Center Note - Micaela Dougherty RN - 01/01/2018 5:42 PM EDTED Notes - Lisette López RN - 01/12/2018 8:15 PM EDTED Notes - Lisette López RN - 01/12/2018 7:55 PM EDT Miscellaneous Notes (unrecog nized section and content) Narrative: Pt to the ED after having a syncopal episode at the grocery store. Pt has had several episodes of syncope and palpitations over the past 2 months. Pt had been sent to [facility] to see Cardiology who did not think there was nothing wrong and sent her home. Pt is now requesting to be transferred to [facility] for further evaluation and treatment. Pt denies chest pain or SOB and is not having any palpitations. CT had a CTA earlier this week and it was clear. D-Dimer was 569 today. Oxygenation: 151/98, 86, 18, 97%, 98.4 Labs: WNL in this encounter Patient arrives from home with complaints of 2 episodes of tachycardia with SOB and dizziness. Pt was seen and tx for SVT here recently at [facility]. Pt reports that she has had this issue for the past couple months and they can't figure out what is wrong. When she has these episodes theyre accompanied by SOB and dizziness. Denies CP, n/v/d. ASSESSMENT: s1 and s2 noted to be regular without gallop or murmur. NSR noted on monitor with a rate of 98. Denies CP, denies SOB at this time. Respirations are easy, even and unlabored with clear lung sounds with rate of 16. Normal respiratory effort. Trachea midline, symmetrical chest expansion. Radial/pedal pulses are equal and bilateral 2+. Abd is soft, round, nondistended with +BSx4. Abd nontender, no gurading. Denies n/v/d. Denies issues with bowel/bladder. Neuro intact, cranial nerves intact, aaox4, clear speech, no n/t reported, steady gait, MAEx4. Symmetrical facial movements. Denies FOSS. Skin clean, dry, intact, mucous membranes moist and pink. Pt ambulates to bathroom at this time for urine sample. SEEN HERE LAST WEEK, WAS TOLD TO COME BACK, ATENOLOL NOT HELPING. DOESN'T WANT AN XRAY, HAS HAD A LOT , BB TAKES ONCE DAILY, THOUGHT MAYBE SHOULD BE INCREASED Patient reporting hx of SVT. Pt was here at [facility] last week for SVT complaint and has been evaluated by director medical. Awaiting holter monitor in the mail for a 14- day study. Pt sts earlier today her HR was 160 bpm at 1200 and 1730 today. Denies chest pain at this time. Pt relates sob but respirations easy and unlabored. Patient ambulates to triage desk with c/o shortness of breath and rapid heart rate x 3 days. Patient states her shortness of breath has gotten worse today. Patient states, I have pain between my shoulder blades. in this encounter INFORMATION SOURCE (unrecogn ized section and content) DATE CREATED AUTHOR AUTHOR'S ORGANIZ ATION 04/10/2018 [facility] DATE CREATED AUTHOR AUTHOR'S ORGANIZ ATION 09/27/2018 [facility] DATE CREATED AUTHOR AUTHOR'S ORGANIZ ATION 03/31/2021 [facility] DATE CREATED AUTHOR AUTHOR'S ORGANIZ ATION 04/12/2022 [facility] DATE CREATED AUTHOR AUTHOR'S ORGANIZ ATION 09/04/2022 [facility] DATE CREATED AUTHOR AUTHOR'S ORGANIZ ATION 10/19/2022 [facility] DATE CREATED AUTHOR AUTHOR'S ORGANIZ ATION 06/25/2023 [facility] DATE CREATED AUTHOR AUTHOR'S ORGANIZ ATION [facility]20[facility] DATE CREATED AUTHOR AUTHOR'S ORGANIZ ATION 10/09/2023 [facility] Reason for Visit (unrecogniz ed section and content) Reason Comments Shortness of Breath Cough Chest Pain Reason Comments Rash rash on back of both legs, tops of thighs and back of both arms for about a week and half Reason Onset Date Comments Breast Problem Radiology Mammogram 07/02/2022 at [facility] Reason Comments Radiology US Specialty Diagnoses / Procedures Referred By Contac t Referred To Contact BR IMAGING Diagnoses Mastalgia Procedures US BREAST LTD LT US BREAST UNI REAL TIME WITH IMAGE LIMITED Natali Brunson APRN.FLEXIBLE MACHINING SYSTEM MACHINIST [address] [place] [address] Br Imaging [address] [place] [address] Referral ID Status Reason Start Date Expiration Date V isits Requested Visits Authorized [id number] Closed Auto-Generate d Referral 07/02/2022 08/01/2023 1 1 Reason Comments Headache Nausea Specialty Diagnoses / Procedures Referred By Contac t Referred To Contact Diagnoses Transient neurological symptoms Referral ID Status Reason Start Date Expiration Date Visits Re quested Visits Authorized [id number] 1 1 Reason Onset Date Comments Yearly Exam Gardasil Injection 12/23/2022 Reason Comments Radiology US Specialty Diagnoses / Procedures Referred By Contac t Referred To Contact US IMAGING Diagnoses Irregular menstrual cycle Hirsutism Procedures US FEMALE PELVIS TRANSVAG US TRANSVAGINAL Natali Brunson APRN.FLEXIBLE MACHINING SYSTEM MACHINIST [address] [place] [address] Us Imaging [facility] Referral ID Status Reason Start Date Expiration Date V isits Requested Visits Authorized [id number] Closed Auto-Generate d Referral 12/23/2022 01/22/2024 1 1 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 Pt c/o migraines for appox 1 year. Pt had episode where she lost vision, went to [facility]. Pt has had 3 more migraines since event. 2 with Aura an most recent vision change, numbness/tingling in both arms. 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 Pt also c/o worse headaches starting at back of head lasting 3-4 hours. Specialty Diagnoses / Procedures Referred By Contac t Referred To Contact Neurology Diagnoses Ocular migraine Other headache syndrome Brain fog Mely Hudson MD [address] [place] [id number] [facility] [place] Referral ID Status Reason Start Date Expiration Date Visits Re quested Visits Authorized [id number] Closed 06/24/2023 06/23/2024 1 1 Specialty Diagnoses / Procedures Referred By Contac t Referred To Contact US IMAGING Diagnoses Abnormal uterine bleeding (AUB) Pelvic cramping Procedures US FEMALE PELVIS TRANSVAG US TRANSVAGINAL Nir Anne MD [address] [place] [address] [place] [address] Referral ID Status Reason Start Date Expiration Date V isits Requested Visits Authorized [id number] Closed Auto-Generate d Referral 08/26/2023 09/24/2024 1 1 Reason Comments Endometrial Biopsy Specialty Diagnoses / Procedures Referred By Contac t Referred To Contact [facility] Diagnoses Abnormal uterine bleeding (AUB) Procedures ENDOMETRIAL BIOPSY ENDOMETRIAL BX W/WO ENDOCERVIX BX W/O DILAT SPX Nir Anne MD [address] [place] [address] [facility] [address] [place] [id number] Referral ID Status Reason Start Date Expiration Date V isits Requested Visits Authorized [id number] Closed Auto-Generate d Referral 08/26/2023 08/25/2024 1 1 Reason Comments Pre-Op Visit Alfred Sainz MD - 09/08/2018 11:28 AM Alfred Enrique MD - 08/24/2018 10:41 AM EST H&P Notes (unrecognized sect ion and content) INTERVAL HISTORY AND PHYSICAL Patient Name: Juan Antonio Guerin Admit Date: [id number] MR #: [id number] : 1995 The H&P has been reviewed and the patient has been examined. I concur with the findings of the H&P. There are no significant changes. It is appropriate to proceed with the planned procedure. Sedation Plan: Moderate ASA Classification: 2 - Patient with mild systemic disease Mallampati Score: Not applicable Alfred Sainz MD 09/08/2018 11:28 AM Formatting of this note may be different from the original. Subjective Patient Name: Juan Antonio Guerin : [address] Mely Hudson MD I had the pleasure of seeing Juan Antonio Guerin in outpatient arrhythmia clinic on 08/24/18 As you recall, Juan Antonio is a 23 years young woman with history of recurrent syncope, tachy palpitations, referred to me to discuss the management options. She was recently at [facility], underwent a tilt-table study, which showed vasovagal response with sublingual nitroglycerin. A subsequent event monitor did not show any clinically significant arrhythmias. She works at [employer]. Due to recurrent syncope, her work activities are quite restricted. Overall these symptoms are adversely affecting her quality of life. Multiple medication trials were attempted, continued to have symptoms despite metoprolol medication on board. She used to be active; her activity is now significantly limited due to elevated heart rates at rest. Denied orthopnea, PND, LE swelling Lying down, blood pressure in the clinic is 110/76 with heart rate 84, standing up blood pressure is 121/84 with heart rate of 96 beats per minute. Her cardiovascular examination is unremarkable. SUMMARY In conclusion, Juan Antonio has: 1. Recurrent syncope, likely vasovagal in etiology. 2. History of supraventricular tachycardia with heart rate in 200s at [employer] after syncopal spell. 3. Probable inappropriate sinus tachycardia. RECOMMENDATIONS I had a long discussion regarding the management options of tachy palpitations and syncope. Adequate hydration, trigger avoidance again reinforced. As these symptoms are affecting her quality of life, the plan is to proceed with EP study to assess reentrant tachyarrhythmias plus or minus ablation. The risks of the procedure include, but not limited to bleeding, infection, stroke, heart attack, tamponade, inadvertent AV rajni injury requiring pacemaker implantation, proarrhythmia. Also took the liberty to discontinue metoprolol medication, placed her on nadolol 40 mg once a day. I will keep you apprised of her progress. Thank you once again for the kind referral. Orders Placed This Encounter Procedures Basic Metabolic Panel CBC and Differential Full code - unverified Echocardiogram complete Case Request EP Lab: EP Study Possible Complex Ablation SVT with CARTO Home Medications: Patient's Medications New Prescriptions NADOLOL (CORGARD) 40 MG TABLET Take 1 (one) tablet (40 mg total) by mouth daily. Previous Medications No medications on file Modified Medications No medications on file Discontinued Medications METOPROLOL TARTRATE (LOPRESSOR) 50 MG TABLET Take 1 (one) tablet (50 mg total) by mouth 2 (two) times a day. Sincerely, Alfred Sainz MD [facility] Cardiology and Electrophysiology History: Past Medical History: Diagnosis Date SVT (supraventricular tachycardia) (HCC) Vasovagal syncope Past Surgical History: Procedure Laterality Date BILAT. BREAST REDUCTION, FREE NIPPLE PROCEDURE CHOLECYSTECTOMY EP - DIAGNOSTIC N/A 01/02/2018 Procedure: Tilt Table; Surgeon: Omid Sharma MD; Location: [facility] EP LAB; Service: Cardiovascular TONSILLECTOMY WISDOM TOOTH EXTRACTION History reviewed. No pertinent family history. Social History Social History Marital status: Spouse name: N/A Number of children: N/A Years of education: N/A Occupational History Not on file. Social History Main Topics Smoking status: Never Smoker Smokeless tobacco: Never Used Alcohol use Yes Comment: monthly Drug use: No Sexual activity: Not on file Other Topics Concern Not on file Social History Narrative No narrative on file Allergy Information: Patient has no known allergies. I reviewed the review of systems Physical Examination: BP 121/84 (BP Location: Left arm, Patient Position: Sitting, BP Cuff Size: X- large Adult) Pulse 96 Ht 5' 8 Wt 105.1 kg (231 lb 12.8 oz) BMI 35.25 kg/m Constitutional: Pleasant, cooperative, no acute distress. HENT: Oropharynx is moist, Conjunctivae are normal. Neck: Supple. No visible JVD. Heart: Regular rhythm with no gallop or murmurs Chest: No rhonchi / rales. Good air entry. Abdomen: Soft. Bowel sounds are normal. There is no tenderness. Musculoskeletal: No joint edema. Ext: No edema Neurological: Alert and oriented to person, place, and time. Skin: Skin is warm. Psychiatric: Normal mood and affect. Laboratory and Additional Data Reviewed: TSH Date Value Ref Range Status 08/08/2018 1.17 0.27 - 4.20 mcIU/mL Final Comment: Please note reference range change as of 07/23/18. WBC Date Value Ref Range Status 08/08/2018 10.72 4.50 - 11.00 K/mcL Final 03/13/2018 7.2 3.4 - 10.6 K/mcL Final 01/12/2018 12.41 (H) 4.50 - 11.00 K/mcL Final 12/04/2017 13.8 (H) 3.4 - 10.6 K/mcL Final Hematocrit Date Value Ref Range Status 08/08/2018 45.1 36.0 - 46.0 % Final 03/13/2018 42.0 34.4 - 44.8 % Final 01/12/2018 41.1 36.0 - 46.0 % Final 12/04/2017 44.1 34.4 - 44.8 % Final Hemoglobin Date Value Ref Range Status 08/08/2018 14.4 12.0 - 16.0 g/dL Final 03/13/2018 14.3 11.6 - 15.4 g/dL Final 01/12/2018 13.8 12.0 - 16.0 g/dL Final 12/04/2017 14.2 11.6 - 15.4 g/dL Final Platelets Date Value Ref Range Status 08/08/2018 318 150 - 400 K/mcL Final 03/13/2018 241 162 - 402 K/mcL Final 01/12/2018 254 150 - 400 K/mcL Final 12/04/2017 301 162 - 402 K/mcL Final Lab Results Component Value Date GLUCOSE 129 (H) 08/08/2018 CALCIUM 9.8 08/08/2018 NA 141 08/08/2018 K 4.0 08/08/2018 CL 103 08/08/2018 BUN 7 (L) 08/08/2018 CREATININE 1.18 (H) 08/08/2018 No components found for: PROBNP ALT Date Value Ref Range Status 03/13/2018 29 14 - 65 U/L Final Comment: This test result might be falsely depressed or falsely elevated on samples drawn from patients taking Sulfasalazine and Sulfapyridine. Venipuncture should occur prior to taking either of these drugs. 12/04/2017 31 14 - 65 U/L Final Comment: This test result might be falsely depressed or falsely elevated on samples drawn from patients taking Sulfasalazine and Sulfapyridine. Venipuncture should occur prior to taking either of these drugs. AST Date Value Ref Range Status 03/13/2018 13 0 - 45 U/L Final Comment: This test result might be falsely depressed or falsely elevated on samples drawn from patients taking Sulfasalazine and Sulfapyridine. Venipuncture should occur prior to taking either of these drugs. 12/04/2017 16 0 - 45 U/L Final Comment: This test result might be falsely depressed or falsely elevated on samples drawn from patients taking Sulfasalazine and Sulfapyridine. Venipuncture should occur prior to taking either of these drugs. Cardiac Studies: Reviewed. Patient Name: Juan Antonio Guerin MR #: [id number] : 1995 Physicians: Mely Hudson MD (Family); Mely Hudson MD (Referring)? Alfred Sainz MD FHRSin this encounter Dwayne Levine RN - 03/01/2020 12:19 AM TYLERTVarsha Bradford MD - 02/29/2020 11:49 PM Dwayne Justice RN - 02/29/2020 11:34 PM EDT ED Notes (unrecognized secti on and content) Discharge instructions reviewed with the patient, all questions answered to their satisfaction. Patient verbalized understanding the need for follow-up with her PCP, voiced understanding all medication directions. Patient has all belongings, no needs at this time, discharged to home, ambulating to the ER entrance. [facility] EM[facility]Y [facility] PCP - Mely Hudson MD Chief Complaint Patient presents with Shortness of Breath Cough Chest Pain MEDICAL DECISION MAKING Patient presents with acute dyspnea associated with wheezing and chest tightness after significant exertion. History of reactive airway disease. Diminished air movement on exam. Sinus tachycardia noted as well however patient reports elevated heart rate at baseline and has a history of SVT no longer on beta-blockers per her report. Given albuterol as well as prednisone here. Substantial and sustained improvement both in oxygen saturations, heart rate and symptoms. Will continue albuterol for the next 48 hours then switch to as needed dosing. Continue prednisone daily for the next 4 days. 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 Did offer testing and patient declines. Discussed reasons to return. CLINICAL IMPRESSION 1. Dyspnea, unspecified type ED Disposition ED Disposition Condition Comment Discharge Stable Juan Antonio Guerin discharged to home/self care in stable condition. Follow-up Information 1. Mely Hudson MD. Specialty: Internal Medicine Why: As needed [facility] [place] [address] 2. [facility] Emergency Department. Specialty: Emergency Medicine Why: If symptoms worsen [address] [place] [address] Contact information for after-discharge care Follow-up information has not been specified. New Prescriptions albuterol 90 mcg/actuation inhaler 2 puffs every 4 hours for the next 48 hours, then 1-2 puffs every 4-6 hours as needed for shortness of breath or wheezing . predniSONE (DELTASONE) 20 MG tablet Starting on 03/02/2020. Take 2 (two) tablets (40 mg total) by mouth daily for 4 days Start: 03/02/20. Discontinued Medications Disp Refills Start End midodrine (PROAMATINE) 5 MG tablet 90 tablet 2 09/08/2018 02/29/2020 Sig: Take 1 (one) tablet (5 mg total) by mouth 3 (three) times a day . Class: Print Route: Oral . . No results found for this visit on 02/29/20. Radiographic Imaging (if any) During ED Visit No orders to display Medications Ordered/Given During ED Visit Medications albuterol inhaler 2 puff (2 puffs Inhalation Given 03/01/20 0002) predniSONE (DELTASONE) tablet 60 mg (60 mg Oral Given 03/01/20 0003) Procedures HPI The history was obtained from the patient. Juan Antonio is a 25 y.o. female who presents with a chief complaint of Shortness of Breath; Cough; and Chest Pain. Presents to the emergency department for evaluation of acute dyspnea and nonproductive cough. 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 States that about an hour prior to arrival she had to run a substantial distance to attend to and subsequently transport a critically ill patient. She became acutely dyspneic while running. Reports associated wheezing and nonproductive cough. Symptoms seem to improve somewhat since onset especially with regard to wheezing. She did have some associated chest tightness with radiation to the back that started simultaneous to the shortness of breath. She reports having had these symptoms in the past related to asthma. She has not required bronchodilators for quite some time. She is attempting to drive home after her shift at work but her symptoms were severe enough that she elected to stop and be evaluated. She is a history of SVT without any recent episodes and stable on beta-idris. There is no history of coronary artery disease, CAD or pneumothorax. Review of Systems Review of Systems Constitutional: Negative for fever. HENT: Negative for congestion, drooling and nosebleeds. Eyes: Negative for pain and visual disturbance. Respiratory: Positive for cough, chest tightness and shortness of breath. Cardiovascular: Negative for chest pain. Gastrointestinal: Negative for abdominal pain and vomiting. Endocrine: Negative. Genitourinary: Negative for difficulty urinating. Musculoskeletal: Negative for myalgias. Skin: Negative for wound. Allergic/Immunologic: Negative. Negative for immunocompromised state. Neurological: Negative for headaches. Hematological: Does not bruise/bleed easily. Psychiatric/Behavioral: Negative for confusion. All other systems reviewed and are negative. Physical Exam Vital Signs During ED Visit (as charted by nursing) Vitals: 02/29/20 2341 03/01/20 0012 03/01/20 0016 BP: (!) 124/97 118/73 BP Location: Right arm Right arm Patient Position: Sitting Lying Pulse: (!) 125 (!) 115 (!) 111 Resp: 18 18 Temp: 98.7 F (37.1 C) TempSrc: Oral SpO2: 98% 98% 100% Weight: 90.7 kg (200 lb) Height: 5' 8 Physical Exam Vitals signs and nursing note reviewed. Constitutional: General: She is not in acute distress. Appearance: She is well-developed and overweight. She is not diaphoretic. HENT: Head: Normocephalic and atraumatic. Right Ear: External ear normal. Left Ear: External ear normal. Nose: Nose normal. Eyes: Conjunctiva/sclera: Conjunctivae normal. Neck: Trachea: No tracheal deviation. Cardiovascular: Rate and Rhythm: Normal rate and regular rhythm. No extrasystoles are present. Heart sounds: Normal heart sounds. Pulmonary: Effort: Pulmonary effort is normal. Tachypnea present. No respiratory distress. Breath sounds: Decreased air movement present. No stridor. No wheezing. Abdominal: General: There is no distension. Musculoskeletal: Comments: No gross deformities Neurological: Mental Status: She is alert. Comments: No facial droop, conjugate gaze, moves all extremities equally Past Medical History Past Medical History: Diagnosis Date SVT (supraventricular tachycardia) (HCC) Vasovagal syncope Past Surgical History Past Surgical History: Procedure Laterality Date ABLATION WITH PHENOL BILAT. BREAST REDUCTION, FREE NIPPLE PROCEDURE CHOLECYSTECTOMY EP - DIAGNOSTIC N/A 01/02/2018 Procedure: Tilt Table; Surgeon: Omid Sharma MD; Location: [facility] EP LAB; Service: Cardiovascular EP STUDY N/A 09/08/2018 Procedure: EP Study Possible Complex Ablation SVT with CARTO; Surgeon: Alfred Sainz MD; Location: [facility] EP LAB; Service: Cardiovascular TONSILLECTOMY WISDOM TOOTH EXTRACTION Family History History reviewed. No pertinent family history. Social History Social History Socioeconomic History Marital status: Single Spouse name: Not on file Number of children: Not on file Years of education: Not on file Highest education level: Not on file Occupational History Not on file Social Needs Financial resource strain: Not on file Food insecurity Worry: Not on file Inability: Not on file Transportation needs Medical: Not on file Non-medical: Not on file Tobacco Use Smoking status: Never Smoker Smokeless tobacco: Never Used Substance and Sexual Activity Alcohol use: Yes Comment: monthly Drug use: No Sexual activity: Not on file Lifestyle Physical activity Days per week: Not on file Minutes per session: Not on file Stress: Not on file Relationships Social connections Talks on phone: Not on file Gets together: Not on file Attends temple service: Not on file Active member of club or organization: Not on file Attends meetings of clubs or organizations: Not on file Relationship status: Not on file Other Topics Concern Not on file Social History Narrative Not on file Allergies No Known Allergies Medications Previous Medications Medication Sig ibuprofen (ADVIL,MOTRIN) 200 MG tablet Take 1 tablet by mouth every 6 to 8 hours as needed . nadolol (CORGARD) 40 MG tablet Take 1 (one) tablet (40 mg total) by mouth daily. 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 CP rated 3/10, located mid through to back. H/o svt. 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 Patient in NAD, rr is even and unlabored, skin p,w,d. Patient given mask to wear, this RN in full PPE. Special isolation precautions are in place with signage outside this patient's room. 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 gloves ? an appropriately fitting (N-95, PAPR, Aura) mask ? face shield ? protective gown to provide care. See documentation for the care provided. documented in this encounter Source Comments (unrecognize d section and content) In the event this informatio n is protected by the Federal Confidentiality of Alcohol and Drug Abuse Patient Records regulations: The Federal rules restrict any use of the information to criminally investigate or prosecute any alcohol or drug abuse patient.[facility] Center[facility] the event this information is protected by the Federal Confidentiality of Alcohol and Drug Abuse Patient Records regulations: The Federal rules restrict any use of the information to criminally investigate or prosecute any alcohol or drug abuse patient.[facility] Center[facility] the event this information is protected by the Federal Confidentiality of Alcohol and Drug Abuse Patient Records regulations: The Federal rules restrict any use of the information to criminally investigate or prosecute any alcohol or drug abuse patient.[facility] Center[facility] the event this information is protected by the Federal Confidentiality of Alcohol and Drug Abuse Patient Records regulations: The Federal rules restrict any use of the information to criminally investigate or prosecute any alcohol or drug abuse patient.[facility] CenterIn the event this information is protected by the Federal Confidentiality of Alcohol and Drug Abuse Patient Records regulations: The Federal rules restrict any use of the information to criminally investigate or prosecute any alcohol or drug abuse patient.[facility] CenterIn the event this information is protected by the Federal Confidentiality of Alcohol and Drug Abuse Patient Records regulations: The Federal rules restrict any use of the information to criminally investigate or prosecute any alcohol or drug abuse patient.[facility] CenterIn the event this information is protected by the Federal Confidentiality of Alcohol and Drug Abuse Patient Records regulations: The Federal rules restrict any use of the information to criminally investigate or prosecute any alcohol or drug abuse patient.[facility] CenterIn the event this information is protected by the Federal Confidentiality of Alcohol and Drug Abuse Patient Records regulations: The Federal rules restrict any use of the information to criminally investigate or prosecute any alcohol or drug abuse patient.[facility] CenterIn the event this information is protected by the Federal Confidentiality of Alcohol and Drug Abuse Patient Records regulations: The Federal rules restrict any use of the information to criminally investigate or prosecute any alcohol or drug abuse patient.[facility] CenterIn the event this information is protected by the Federal Confidentiality of Alcohol and Drug Abuse Patient Records regulations: The Federal rules restrict any use of the information to criminally investigate or prosecute any alcohol or drug abuse patient.[facility] CenterIn the event this information is protected by the Federal Confidentiality of Alcohol and Drug Abuse Patient Records regulations: The Federal rules restrict any use of the information to criminally investigate or prosecute any alcohol or drug abuse patient.[facility] Care Teams (unrecognized sec tion and content) 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 Machine Operator Relationship Specialty Start Date End Date Mely Hudson MD [address] [place], [place] [id number] PCP - General Internal Medicine 08/15/20 Biscuit Machine Operator Relationship Specialty Start Date End Date Mely Hudson MD [address] [place], [place] [id number] PCP - General Internal Medicine 08/15/20 Biscuit Machine Operator Relationship Specialty Start Date End Date Mely Hudson MD [address] [facility] [address] [place] [address] PCP - General Internal Medicine 08/24/18 Biscuit Machine Operator Relationship Specialty Start Date End Date Mely Hudson MD [address] [place], [place] [address] PCP - General Internal Medicine 08/15/20 Biscuit Machine Operator Relationship Specialty Start Date End Date Mely Hudson MD [address] [place], [place] [id number] PCP - General Internal Medicine 08/15/20 Biscuit Machine Operator Relationship Specialty Start Date End Date Mely Hudson MD [address] [place], [place] [id number] PCP - General Internal Medicine 08/15/20 Biscuit Machine Operator Relationship Specialty Start Date End Date Mely Hudson MD [address] [place] [id number] PCP - General Internal Medicine 08/24/18 Biscuit Machine Operator Relationship Specialty Start Date End Date Mely Hudson MD [address] [place], [place] [id number] PCP - General Internal Medicine 08/15/20 Biscuit Machine Operator Relationship Specialty Start Date End Date Mely Hudson MD [address] [place], [place] [id number] PCP - General Internal Medicine 08/15/20 Biscuit Machine Operator Relationship Specialty Start Date End Date Mely Hudson MD [address] [place], [place] [id number] PCP - General Internal Medicine 08/15/20 Scheduled Active and Recently Administ ered Medications (unrecognized section and content) PRN Medication Order 09/02/2022 09/03/2022 09/04/2022 acetaminophen (TYLENOL) tablet 650 mg 650 mg, Oral, Every 4 hours PRN, mild pain, fever 100.4 F or greater, headaches, Starting on Fri09/03/22 at 2040 iopamidoL (ISOVUE-370) 370 mg iodine /mL (76 %) injection 50 mL 50 mL, Intravenous, Once in imaging, contrast, Starting on Fri09/03/22 at 1657, For 1 dose iopamidoL (ISOVUE-370) 370 mg iodine /mL (76 %) injection 75 mL 75 mL, Intravenous, Once in imaging, contrast, Starting on Fri09/03/22 at 1656, For 1 dose iopamidoL (ISOVUE-370) 370 mg iodine /mL (76 %) injection 75 mL (COMPLETED) 75 mL, Intravenous, Once in imaging, contrast, Starting on Fri09/03/22 at 1702, For 1 dose 1708 (Contrast Administered - Provider: Lashay Juarez, TECHNOLOGIST) magnesium sulfate 2 g in sterile water (SW) 50 mL IVPB 2 g, Intravenous, at 50 mL/hr, Once as needed, Initiate if headache persists at least 2 hours after administration of first doses of first-line headache-abortive agents., Starting on Fri09/03/22 at 2242, For 4 hours, Sign and Release, SECOND-line Headache-abortive therapy. Administer only if headache persists at least 2 hours after administration of first doses of first-line headache-abortive agents. Do not give if Magnesium Sulfate was given as a first-line headache-abortive medication. melatonin tablet 3 mg 3 mg, Oral, Nightly PRN, Sleep, Starting on Fri09/03/22 at 2040 ondansetron (ZOFRAN) injection 4 mg(Linked Group 1) 4 mg, Intravenous, Every 6 hours PRN, nausea, vomiting, Starting on Fri09/03/22 at 2040, Use oral route first, if tolerated. ondansetron (ZOFRAN-ODT) disintegrating tablet 4 mg(Linked Group 1) 4 mg, Oral, Every 6 hours PRN, nausea, vomiting, Starting on Fri09/03/22 at 2040, Use oral route first, if tolerated. Formulation requires tablet remain in sealed package until immediately prior to dose being administered. prochlorperazine (COMPAZINE) injection 10 mg 10 mg, Intravenous, Every 8 hours PRN, nausea, vomiting, Starting on Fri09/04/22 at 0442, Sign and Release, If IV, give slow IV push at a rate not exceeding 5 mg/minute and remain lying down for 30 minutes to reduce risk of hypotension. If IM, inject deep into outer buttocks quadrant. senna (SENOKOT) tablet 8.6 mg 8.6 mg (1 tablet), Oral, 2 times daily PRN, constipation, Starting on Fri09/03/22 at 2040 sodium chloride (PF) (NS) flush 5 mL(Linked Group 2) 5 mL, Intravenous, As needed, line care, Starting on Fri09/03/22 at 165 sodium chloride 0.9% (NS)(Linked Group 2) 0-150 mL/hr, Intravenous, As needed, To flush line after IV infusions when no maintenance IV ordered or a compatibility issue. Infuse 20ml at the same rate as the secondary infusion, Starting on Fri09/03/22 at 1655, Run as Primary IV. NOT intended for KVO. Linked Groups Order Group 1: ondansetron (ZOFRAN-ODT) disintegrating tablet 4 mgJump to med 4 mg, Oral, Every 6 hours PRN, nausea, vomiting, Starting on Fri09/03/22 at 2040
Use oral route first, if tolerated. Formulation requires tablet remain in sealed package until immediately prior to dose being administered.
Or ondansetron (ZOFRAN) injection 4 mgJump to med 4 mg, Intravenous, Every 6 hours PRN, nausea, vomiting, Starting on Fri09/03/22 at 2040
Use oral route first, if tolerated.
Group 2: Insert peripheral IV (COMPLETED) NELSON, Once, On Fri09/03/22 at 1700, For 1 occurrence And Saline lock IV (CANCELED) NELSON, Once, On Fri09/03/22 at 1700, For 1 occurrence And sodium chloride (PF) (NS) flush 5 mLJump to med 5 mL, Intravenous, As needed, line care, Starting on Fri09/03/22 at 1655 And sodium chloride 0.9% (NS)Jump to med 0-150 mL/hr, Intravenous, As needed, To flush line after IV infusions when no maintenance IV ordered or a compatibility issue. Infuse 20ml at the same rate as the secondary infusion, Starting on Fri09/03/22 at 1655
Run as Primary IV. NOT intended for KVO.
FOR RECORDS PERTAINING TO PATIENTS WHO ARE OR HAVE BEEN ENROLLED IN A CHEMICAL DEPENDENCY/SUBSTANCEABUSE PROGRAM, SOME INFORMATION MAY BE OMITTED. This clinical summary was aggregated from multiple sources. Caution should be exercised in using it in the provision of clinical care. This summary normalizes information from multiple sources, and as a consequence, information in this document may materially change the coding, format and clinical context of patient data. In addition, data may be omitted in some cases. CLINICAL DECISIONS SHOULD BE BASED ON THE PRIMARY CLINICAL RECORDS. [employer] provides no warranty or guarantee of the accuracy or completeness of information in this document.
[2023-11-18 01:26] VITALS: RESP 16
== END 2023-11-18 02:47 | disposition home or self-care (01) ==
PROVIDERS: Emergency Provider Emergency Medicine; Visit Provider Emergency Medicine
DX: R51.9 Headache, unspecified (principal); E66.9 Obesity, unspecified; Z79.899 Other long term (current) drug therapy
CPT/HCPCS: 70450; 96361; 96374; 96375; 99283; J7030; A4216

== ENCOUNTER 2024-04-14 10:47 | Emergency (ER) | payer BC, SELFPAY ==
[2024-04-14 10:48] VITALS: BP 141/88; PULSE 81; RESP 20; TEMP 36.6; O2SAT 98; BMI 45.7
--- NOTE | 2024-04-14 11:19 | EKG12_ITS ---
Test Reason : SYNCOPE Blood Pressure : / mmHG Vent. Rate : 083 BPM Atrial Rate : 083 BPM P-R Int : 146 ms QRS Dur : 072 ms QT Int : 376 ms P-R-T Axes : 009 000 010 degrees QTc Int : 441 ms Normal sinus rhythm with sinus arrhythmia Normal ECG Confirmed by Aston Vu ([id number]), editor house organ MATTI WHITLEY ([id number]) on 04/15/2024 11:10:57 AM Referred By: Confirmed By:Aston Vu
--- NOTE | 2024-04-14 11:19 | RAD_ITS ---
STUDY: X-RAY CHEST REASON FOR EXAM: Female, 29 years old. Chest pain and syncopal episodes. TECHNIQUE: Single AP portable view of the chest. COMPARISON: None. FINDINGS: EKG electrodes are seen. Mild increased markings at the right lung base suggestive of a linear atelectasis. There is no demonstrated pleural abnormality. Normal size heart. Normal mediastinum and adelaida. Normal visualized pulmonary arteries. Normal visualized aortic arch and descending thoracic aorta. Normal visualized thoracic spine. Normal visualized ribs, clavicles, and shoulders. There is no demonstrated abnormality of the visualized soft tissue structures of the upper abdomen. RAD/Chest 1 View (Portable) IMPRESSION: Mild degree of increased markings at the right lung base suggestive of linear atelectasis. Electronically Signed: Mauro George MD at 12:18 EDT ,
[2024-04-14 11:40] LABS: Absolute Lymphocyte Count 2.64 X10^3/uL (0.83-4.51); Absolute Neutrophil Count 5.2 X10^3/uL (2.0-7.7); Basophil# 0.07 X10^3/uL; Basophil% 0.8 % (0-1); Eosinophils% 2.3 % (0-5); Hematocrit 41.8 % (37-47); Hemoglobin 13.5 g/dL (12.0-15.0); Lymphocyte # 2.64 X10^3/ul (0.83-4.51); Lymphocyte % 30.3 % (19-41); Mean Corp Hgb Conc 32.3 g/dL (32-36); Mean Corpuscular Hgb 27.4 pg (27.0-32.0); Mean Platelet Vol. 10.8 fl (6.2-12.0); Monocyte% 6.9 % (0-10); NRBC Flagged by Analyzer 0 % (0-5); Neutrophil # 5.16 X10^3/uL (2.7-7.7); Neutrophil % 59.4 % (47-70); Platelet Count 231 K/mm3 (150-450); RBC Distribution Width CV 12.7 % (11.6-14.6); RBC Distribution Width SD 38.3 fl (35.1-43.9); Red Blood Count 4.92 M/mm3 (4.2-5.4); White Blood Count 8.7 K/mm3 (4.4-11.0)
[2024-04-14 11:53] VITALS: BP 128/87; PULSE 83; RESP 28; O2SAT 98
[2024-04-14 12:00] VITALS: BP 137/85; PULSE 83; RESP 25; O2SAT 97
[2024-04-14 12:00] LABS: Anion Gap 3 (5-15); BUN 10 mg/dL (7-18); Calcium,Total 9.3 mg/dL (8.5-10.1); Chloride 109 mmol/L (98-107); EST Glomerular Filtration Rate 69 mL/min (>60); Est Glom Filt Rate - Afr Amer 84 mL/min (>60); Estimated Creatinine Clearance 120.64 ml/min; Glucose 76 mg/dL (74-106); Potassium 3.1 mmol/L (3.5-5.1); Sodium Level 140 mmol/L (136-145); Troponin-I HS (w/2H Reflex) < 3 pg/mL (3.0-54.0)
[2024-04-14 12:38] VITALS: BP 120/80; BP 129/96; BP 140/91; PULSE 75; PULSE 79; PULSE 81
[2024-04-14] MEDS: Potassium Chloride Oral Tablet 20 MEQ 40 MEQ PO (12:43)
[2024-04-14 13:10] VITALS: BP 129/90; PULSE 85; RESP 17; O2SAT 98
[2024-04-14 13:11] VITALS: BP 129/90; PULSE 85; RESP 17; TEMP 36.7; O2SAT 98
--- NOTE | 2024-04-14 13:11 | EDS_ITS ---
HPI History of Present Illness Chief Complaint: Syncope Narrative Narrative: 29-year-old female presenting with an episode of syncope. She states she has a longstanding history of this. She states that she went a long time without episodes but it currently is giving her more problems. She states that she was on her way home from work [facility] Medical History Alcohol use Anxiety Asthma Back pain Cardiology follow-up encounter Heartburn History of irregular heartbeat History of stress test Injury of back Leg cramps Migraine headache Non-smoker Syncope Wears glasses Home Medications ?Medication ?Instructions ?Recorded ?Last Taken ?Type albuterol sulfate 90 mcg/actuation 2 inh inhalation Q8H PRN shortness 09/30/23 Unknown History aerosol inhaler of breath or wheezing sumatriptan succinate 100 mg 100 mg PO Q2H PRN migraine headache 09/30/23 Unknown History tablet (Imitrex) Allergy/AdvReac Type Severity Reaction Status Date / Time No Known Allergies Allergy Verified 11/17/23 23:26 Surgical History History of laparoscopic cholecystectomy History of wisdom tooth extraction Hx of breast reduction, elective Hx of tonsillectomy Social History Smoking Status: Never smoker EXAM Physical Exam Const Vital Signs: 04/14/24 10:48 04/14/24 10:53 04/14/24 11:41 Temperature 98 F Temperature Source Oral Pulse Rate 81 Pulse Rate [Lying] Pulse Rate [Sitting (for 1 minute prior to obtaining)] Pulse Rate [Standing (for 1 minute prior to obtaining)] Respiratory Rate 20 H Respiratory Effort Normal Respiratory Pattern Normal Blood Pressure 141/88 H Blood Pressure [Lying] Blood Pressure [Sitting (for 1 minute prior to obtaining)] Blood Pressure [Standing (for 1 minute prior to obtaining)] Blood Pressure Mean 105 Blood Pressure Mean [Lying] Blood Pressure Mean [Sitting (for 1 minute prior to obtaining)] Blood Pressure Mean [Standing (for 1 minute prior to obtaining)] Pulse Ox 98 Oxygen Delivery Method Room Air Room Air 04/14/24 11:53 04/14/24 12:00 04/14/24 12:38 Temperature Temperature Source Pulse Rate 83 83 Pulse Rate [Lying] 75 Pulse Rate [Sitting (for 1 minute prior to obtaining)] 79 Pulse Rate [Standing (for 1 minute prior to obtaining)] 81 Respiratory Rate 28 H 25 H Respiratory Effort Respiratory Pattern Blood Pressure 128/87 H 137/85 H Blood Pressure [Lying] 120/80 Blood Pressure [Sitting (for 1 minute prior to obtaining)] 129/96 H Blood Pressure [Standing (for 1 minute prior to obtaining)] 140/91 H Blood Pressure Mean 100 102 Blood Pressure Mean [Lying] 93 Blood Pressure Mean [Sitting (for 1 minute prior to obtaining)] 107 Blood Pressure Mean [Standing (for 1 minute prior to obtaining)] 107 Pulse Ox 98 97 Oxygen Delivery Method 04/14/24 13:10 Temperature Temperature Source Pulse Rate 85 Pulse Rate [Lying] Pulse Rate [Sitting (for 1 minute prior to obtaining)] Pulse Rate [Standing (for 1 minute prior to obtaining)] Respiratory Rate 17 Respiratory Effort Respiratory Pattern Blood Pressure 129/90 H Blood Pressure [Lying] Blood Pressure [Sitting (for 1 minute prior to obtaining)] Blood Pressure [Standing (for 1 minute prior to obtaining)] Blood Pressure Mean 103 Blood Pressure Mean [Lying] Blood Pressure Mean [Sitting (for 1 minute prior to obtaining)] Blood Pressure Mean [Standing (for 1 minute prior to obtaining)] Pulse Ox 98 Oxygen Delivery Method Room Air MDM MDM Lab Data Labs: Laboratory Results - last 24 hr 04/14/24 10:57 WBC 8.7 RBC 4.92 Hgb 13.5 Hct 41.8 MCV 85.0 MCH 27.4 MCHC 32.3 RDW Std Deviation 38.3 RDW Coeff of Randy 12.7 Plt Count 231 MPV 10.8 Immature Gran % (Auto) 0.300 Neut % (Auto) 59.4 Lymph % (Auto) 30.3 Petroleum % (Auto) 6.9 Eos % (Auto) 2.3 Baso % (Auto) 0.8 Absolute Neuts (auto) 5.2 Absolute Lymphs (auto) 2.64 Nucleated RBC % 0 Sodium 140 Potassium 3.1 L Chloride 109 H Carbon Dioxide 28.0 Anion Gap 3 L BUN 10 Creatinine 1.00 Estim Creat Clear Calc 120.64 Est GFR (MDRD) Af Amer 84 Est GFR (MDRD) Non-Af 69 BUN/Creatinine Ratio 10.0 Glucose 76 Calcium 9.3 Troponin I High Sens < 3 L Radiography Diagnostic Testing: Clinical Impression(s) from Imaging Studies Chest X-Ray 04/14/24 11:19 IMPRESSION: Mild degree of increased markings at the right lung base suggestive of linear atelectasis. Electronically Signed: Mauro George MD at 12:18 EDT , Discharge Plan Triage Chief Complaint: Syncope ED Provider: Jose Kelly Dx/Rx/DC Orders Instructions: ED Hypokalemia, ED Potassium-Rich Foods, ED Fainting, Uncertain Cause Prescriptions: No Action albuterol sulfate 90 mcg/actuation HFA aerosol inhaler 2 inh inhalation Q8H PRN (Reason: shortness of breath or wheezing) sumatriptan succinate [Imitrex] 100 mg tablet 100 mg PO Q2H PRN (Reason: migraine headache) Rx Instructions: do not exceed 2 doses per 24 hrs Primary Care Provider: Mely Hudson Referrals: Mely Hudson MD [Primary Care Provider] - Print Language: Belarusian Disposition Disposition: Home, Self Care
--- NOTE | 2024-04-14 13:11 | EX.ED.DYSGE1 ---
HPI History of Present Illness Chief Complaint: Syncope Narrative Narrative: 29-year-old female presenting with an episode of syncope. She states she has a longstanding history of this. She states that she went a long time without episodes but it currently is giving her more problems. She states that she was on her way home from work and started to feel like she was lightheaded. When she got home she had an episode of syncope. She states that she has seen multiple people for this. She has had Holter monitors, EP studies. She currently is awaiting a stress test and an echocardiogram next week. She states she is not having any chest pain with this. She states that she has a diagnosis of inappropriate tachycardia. She states if she starts to walk around heart rate up into the 120s. She states that a stress test and echocardiogram are to her possibly getting a pacemaker. [facility] Medical History Wears glasses Anxiety Alcohol use Back pain Injury of back Migraine headache Syncope Heartburn Asthma Non-smoker Leg cramps Cardiology follow-up encounter History of stress test History of irregular heartbeat Home Medications ?Medication ?Instructions ?Recorded ?Last Taken ?Type albuterol sulfate 90 mcg/actuation 2 inh inhalation Q8H PRN shortness 09/30/23 Unknown History aerosol inhaler of breath or wheezing sumatriptan succinate 100 mg 100 mg PO Q2H PRN migraine headache 09/30/23 Unknown History tablet (Imitrex) Allergy/AdvReac Type Severity Reaction Status Date / Time No Known Allergies Allergy Verified 11/17/23 23:26 Surgical History Hx of breast reduction, elective History of wisdom tooth extraction History of laparoscopic cholecystectomy Hx of tonsillectomy Social History Smoking Status: Never smoker ROS ROS ED Constitutional Constitutional ED: Denies chills, fever(s) or sweats Eyes Eyes: Denies blurry vision or change in vision ENT ENT ED: Denies ear pain or sore throat Cardiovascular Cardiovascular: Reports racing heartbeat and other Details: Syncope ; Denies chest pain or palpitations Respiratory/Chest Respiratory/Chest: Denies cough, dyspnea or sputum Gastrointestinal Gastrointestinal: Denies abdominal pain, constipation, diarrhea, nausea or vomiting Genitourinary Genitourinary ED: Denies dysuria, hematuria or urinary frequency Musculoskeletal Musculoskeletal: Denies arthralgias, myalgias or neck pain Integumentary Denies abscess, Abrasions or rash Neurologic Neurologic: Denies headache(s), paresthesias or weakness Psychiatric Psychiatric: Denies anxiety, depression, suicidal ideation or suicidal thoughts Endocrine Endocrinology: Denies polydipsia or polyuria EXAM Physical Exam Const Vital Signs: 04/14/24 10:48 04/14/24 10:53 04/14/24 11:41 Temperature 98 F Temperature Source Oral Pulse Rate 81 Pulse Rate [Lying] Pulse Rate [Sitting (for 1 minute prior to obtaining)] Pulse Rate [Standing (for 1 minute prior to obtaining)] Respiratory Rate 20 H Respiratory Effort Normal Respiratory Pattern Normal Blood Pressure 141/88 H Blood Pressure [Lying] Blood Pressure [Sitting (for 1 minute prior to obtaining)] Blood Pressure [Standing (for 1 minute prior to obtaining)] Blood Pressure Mean 105 Blood Pressure Mean [Lying] Blood Pressure Mean [Sitting (for 1 minute prior to obtaining)] Blood Pressure Mean [Standing (for 1 minute prior to obtaining)] Pulse Ox 98 Oxygen Delivery Method Room Air Room Air 04/14/24 11:53 04/14/24 12:00 04/14/24 12:38 Temperature Temperature Source Pulse Rate 83 83 Pulse Rate [Lying] 75 Pulse Rate [Sitting (for 1 minute prior to obtaining)] 79 Pulse Rate [Standing (for 1 minute prior to obtaining)] 81 Respiratory Rate 28 H 25 H Respiratory Effort Respiratory Pattern Blood Pressure 128/87 H 137/85 H Blood Pressure [Lying] 120/80 Blood Pressure [Sitting (for 1 minute prior to obtaining)] 129/96 H Blood Pressure [Standing (for 1 minute prior to obtaining)] 140/91 H Blood Pressure Mean 100 102 Blood Pressure Mean [Lying] 93 Blood Pressure Mean [Sitting (for 1 minute prior to obtaining)] 107 Blood Pressure Mean [Standing (for 1 minute prior to obtaining)] 107 Pulse Ox 98 97 Oxygen Delivery Method 04/14/24 13:10 04/14/24 13:11 Temperature 98.0 F Temperature Source Pulse Rate 85 85 Pulse Rate [Lying] Pulse Rate [Sitting (for 1 minute prior to obtaining)] Pulse Rate [Standing (for 1 minute prior to obtaining)] Respiratory Rate 17 17 Respiratory Effort Respiratory Pattern Blood Pressure 129/90 H 129/90 H Blood Pressure [Lying] Blood Pressure [Sitting (for 1 minute prior to obtaining)] Blood Pressure [Standing (for 1 minute prior to obtaining)] Blood Pressure Mean 103 103 Blood Pressure Mean [Lying] Blood Pressure Mean [Sitting (for 1 minute prior to obtaining)] Blood Pressure Mean [Standing (for 1 minute prior to obtaining)] Pulse Ox 98 98 Oxygen Delivery Method Room Air Positive well nourished General Appearance ED: NAD HEENT Reports moist mucous membranes Eyes PERRL and EOMs intact bilaterally Neck no lymphadenopathy Chest Wall inspection of chest normal Resp normal respiratory effort and clear to auscultation bilaterally Auscultation: Negative for rales, rhonchi or wheezes Cardio regular rate and regular rhythm Neuro oriented x3 and CN's II-XII intact bilaterally Sensorium / Orientation: alert Motor Exam: strength 5/5 throughout Psych mental status grossly normal Skin no rashes or lesions noted and no wounds MDM MDM MDM Narrative Medical decision making narrative: Patient presenting with episode of syncope. She has had this in the past and has had an extensive workup. She is currently waiting for stress test and an echocardiogram to repair her for a pacemaker. This is supposed to be in the next week or 2. Patient is not having chest pain today. Differential includes ACS, dysrhythmia, dehydration, anemia, electrolyte abnormalities. CBC will be obtained to assess white blood cell count, hemoglobin, platelets. BMP to assess renal function, electrolytes, glucose. High-sensitivity troponin and EKG to assess for ischemia/dysrhythmia. Chest x-ray to rule out pneumonia. CBC shows normal white blood cell count 8.7. Hemoglobin 13.5. Platelets normal at 231. Renal function is within normal limits. Potassium slightly low at 3.1. This was repleted orally. High-sensitivity troponin is 3. EKG interpreted by myself shows sinus rhythm at 83 bpm without sign of ischemic change. Chest x-ray interpreted by myself shows no acute cardiopulmonary process. Radiologist services and agrees. Orthostatic vital signs were performed today and were negative and patient was able to ambulate to the bathroom without any difficulty. At this point she feels comfortable going home and following up for her outpatient stress test and echocardiogram. Return precautions were discussed. Impression: 1. Hypokalemia 2. Syncope Lab Data Labs: Laboratory Results - last 24 hr 04/14/24 10:57 WBC 8.7 RBC 4.92 Hgb 13.5 Hct 41.8 MCV 85.0 MCH 27.4 MCHC 32.3 RDW Std Deviation 38.3 RDW Coeff of Randy 12.7 Plt Count 231 MPV 10.8 Immature Gran % (Auto) 0.300 Neut % (Auto) 59.4 Lymph % (Auto) 30.3 [place] % (Auto) 6.9 Eos % (Auto) 2.3 Baso % (Auto) 0.8 Absolute Neuts (auto) 5.2 Absolute Lymphs (auto) 2.64 Nucleated RBC % 0 Sodium 140 Potassium 3.1 L Chloride 109 H Carbon Dioxide 28.0 Anion Gap 3 L BUN 10 Creatinine 1.00 Estim Creat Clear Calc 120.64 Est GFR (MDRD) Af Amer 84 Est GFR (MDRD) Non-Af 69 BUN/Creatinine Ratio 10.0 Glucose 76 Calcium 9.3 Troponin I High Sens < 3 L Radiography Diagnostic Testing: Clinical Impression(s) from Imaging Studies Chest X-Ray 04/14/24 11:19 IMPRESSION: Mild degree of increased markings at the right lung base suggestive of linear atelectasis. Electronically Signed: Mauro George MD at 12:18 EDT , Discharge Plan Triage Chief Complaint: Syncope ED Provider: Jose Kelly Dx/Rx/DC Orders Instructions: ED Hypokalemia, ED Potassium-Rich Foods, ED Fainting, Uncertain Cause Prescriptions: No Action albuterol sulfate 90 mcg/actuation HFA aerosol inhaler 2 inh inhalation Q8H PRN (Reason: shortness of breath or wheezing) sumatriptan succinate [Imitrex] 100 mg tablet 100 mg PO Q2H PRN (Reason: migraine headache) Rx Instructions: do not exceed 2 doses per 24 hrs Primary Care Provider: Mely Hudson Referrals: Mely Hudson MD [Primary Care Provider] - Print Language: Trinidadian Disposition Disposition: Home, Self Care Discharge Date/Time: 04/14/24 13:12
[2024-04-14 13:37] LABS: Reflex Troponin-HS? (from REC) Y
== END 2024-04-14 13:12 | disposition home or self-care (01) ==
PROVIDERS: Emergency Provider Student in an Organized Health Care Education/Training Program; PCP Internal Medicine; Visit Provider Student in an Organized Health Care Education/Training Program
DX: R55 Syncope and collapse (principal); E87.6 Hypokalemia; J45.909 Unspecified asthma, uncomplicated
CPT/HCPCS: 71045; 80048; 84484; 85025; 93005; 99285; A4216

== ENCOUNTER 2024-12-09 16:04 | Outpatient (CLI) | payer OTHER, SELFPAY ==
[2024-12-09 16:25] VITALS: RESP 18; TEMP 37.1
[2024-12-09 16:44] VITALS: BP 136/74; PULSE 111; O2SAT 98
[2024-12-09 16:49] VITALS: PULSE 108; O2SAT 97
[2024-12-09 17:17] LABS: Mucous, Urine 0 SEEN /hpf (<or=2+)
[2024-12-09 17:25] LABS: Color, Urine Yellow (Yellow); Glucose, Dipstick Normal (Normal); Ketone-Dipstick Negative (Negative); Leukocyte Esterase-Dipstick 100 /ul (Negative); Nitrite-Dipstick Negative (Negative); Occult Blood-Urine 10 /ul (Negative); Protein-Dipstick 30 mg/dl (Negative); Urine Bilirubin Dipstick Negative (Negative); Urine Clarity Sl. Cloudy (Clear); Urine Urobilinogen Normal (Normal)
[2024-12-09 18:24] LABS: Bacteria 4+ /hpf (None Seen); Red Blood Cells-Urine 0-5 SEEN /hpf (0-5); White Blood Cells 5-10 SEEN /hpf (0-5)
[2024-12-09 18:25] LABS: Hyaline Cast 0-5 SEEN /lpf (0-5); Squamous Epithelial Cells - UA 5-10 SEEN /hpf (5-10)
--- NOTE | 2024-12-10 10:33 | OB.TRI.HP_ITS ---
[facility] - General General Date of Admission: 12/09/24 Date of Service: 12/09/24 Chief Complaint: abdominal pain HPI Narrative BUNNY GROVES, is a 29 F who presents with high risk at 24 weeks complaining of abdominal pain. Her has been complicated by maternal obesity with BMI over 40 and a short cervix for which she is on progesterone. She is also had some UTIs. She denies any gross vaginal bleeding or leaking of fluid. She also complained of some decreased movement over the last several hours. She denied any fevers or chills. She had a loose stool but no nausea or vomiting and had been tolerating regular diet. [facility] Medical History Wears glasses Anxiety Alcohol use Back pain Injury of back Migraine headache Syncope Heartburn Asthma Non-smoker Leg cramps Cardiology follow-up encounter History of stress test History of irregular heartbeat Home Medications ?Medication ?Instructions ?Recorded ?Last Taken ?Type albuterol sulfate 90 mcg/actuation 2 inh inhalation Q8 H PRN shortness 09/30/23 Unknown History aerosol inhaler of breath or wheezing sumatriptan succinate 100 mg 100 mg PO Q2H PRN migrain e headache 09/30/23 Unknown History tablet (Imitrex) Allergy/AdvReac Type Severity Reaction Status Date / Time No Known Allergies Allergy Verified 11/17/23 23:26 Surgical History Hx of breast reduction, elective History of wisdom tooth extraction History of laparoscopic cholecystectomy Hx of tonsillectomy Social History Smoking Status: Never smoker NST FHR Rate Baby A Baseline: 140 Variability:: Minimal and Moderate Accelerations:: None Decelerations:: None NST Reactive:: Appropriate for gestational age Uterine Activity:: quiet Assessment & Plan (1) High-risk in second trimester: PLAN: heart tones were appropriate for gestational age. Full nonstress test not indicated due to gestational age. No evidence of labor. Suspect musculoskeletal and/or GI etiology for discomfort. Patient was given symptomatic measures. Follow-up in the office as scheduled or as needed. Continue vaginal progesterone. (2) Maternal obesity syndrome in second trimester: (3) Abdominal pain affecting :
== END 2024-12-09 18:25 | disposition home or self-care (01) ==
LOC: WPOUT 16:11 → WP 16:11
PROVIDERS: PCP Internal Medicine; Referring Provider Obstetrics & Gynecology; Visit Provider Obstetrics & Gynecology
DX: O09.92 Supervision of high risk pregnancy, unspecified, second trimester (principal); R10.9 Unspecified abdominal pain; Z3A.24 24 weeks gestation of pregnancy; O99.212 Obesity complicating pregnancy, second trimester; O26.872 Cervical shortening, second trimester; O36.8120 Decreased fetal movements, second trimester, not applicable or unspecified
CPT/HCPCS: 81001; 99221; G0378

== ENCOUNTER 2025-01-09 10:50 | Outpatient (CLI) | payer OTHER, SELFPAY ==
[2025-01-09 10:58] VITALS: BP 139/89; PULSE 125
[2025-01-09 11:13] VITALS: PULSE 118; RESP 18; TEMP 37.4; O2SAT 98
[2025-01-09 11:20] VITALS: BMI 44.2
[2025-01-09 11:31] VITALS: BP 126/77; PULSE 111
--- NOTE | 2025-01-10 06:35 | OB.TRI.NOTE ---
HPI - General General Date of Admission: 01/09/25 Date of Service: 01/09/25 Chief Complaint: pressure HPI Narrative BUNNY GROVES, is a 30 F who presents pressure and contractions. Unicornuate uterus. Recent admission to [place] with contractions. Was 1 cm and 60%. Did receive BMZ x 2. No bleeding or leaking. Contractions about every 10 minutes but mostly with walking No contractions on toco. No vaginal bleeding on spec exam. Cervix very high and unchanged Maternal Data Information Final CADY: 03/31/25 Gestational age: 28+3 PFSH PFSH Medical History Wears glasses Anxiety Alcohol use Back pain Injury of back Migraine headache Syncope Heartburn Asthma Non-smoker Leg cramps Cardiology follow-up encounter History of stress test History of irregular heartbeat Home Medications ?Medication ?Instructions ?Recorded ?Last Taken ?Type albuterol sulfate 90 mcg/actuation 2 inh inhalation Q8H PRN shortness 09/30/23 Unknown History aerosol inhaler of breath or wheezing aspirin 81 mg chewable tablet 1 tab PO DAILY 01/09/25 01/08/25 22:00 History (Aspirin Childrens) metoprolol succinate 25 mg 25 mg PO PRN 01/09/25 Unknown History tablet,extended release 24 hr (Toprol XL) vitamins-iron fumarate 65 1 tab PO DAILY 01/09/25 01/08/25 22:00 History mg iron-folic acid 1 mg tablet (Mynatal Plus) progesterone micronized 200 mg 200 mg vaginal DAILY 01/09/25 01/08/25 22:00 History capsule Allergy/AdvReac Type Severity Reaction Status Date / Time No Known Allergies Allergy Verified 01/09/25 11:22 Surgical History Hx of breast reduction, elective History of wisdom tooth extraction History of laparoscopic cholecystectomy Hx of tonsillectomy Social History Smoking Status: Never smoker History 1 Elective abortions Hx Para 0 Spontaneous abortions Hx # Term Pregnancies Ectopic pregnancies Hx # Pregnancies Multiple births # of living children Physical Exam Const alert and no apparent distress General Appearance: cooperative HEENT normocephalic Resp normal respiratory effort Cardio regular rate GI soft to palpation GI Narrative: gravid, nontender, appropriate for gestational age Extremity no calf tenderness General Extremity: edema Skin no wounds Rashes: No rashes noted Psych activity/motor behavior normal NST FHR Rate Baby A Baseline: 140 Variability:: Moderate Accelerations:: 15 x 15 Decelerations:: None NST Reactive:: Yes and Appropriate for gestational age FHR Category:: Category I Assessment & Plan (1) 28 weeks gestation of : (2) Uterine congenital anomaly, antepartum: (3) Threatened labor, antepartum: PLAN: Plan No contractions or bleeding Patient comfortable with discharge and close follow up
== END 2025-01-09 12:22 | disposition home or self-care (01) ==
LOC: WPOUT 10:56 → WP 10:57
PROVIDERS: PCP Internal Medicine; Referring Provider Obstetrics & Gynecology; Visit Provider Obstetrics & Gynecology
DX: O47.03 False labor before 37 completed weeks of gestation, third trimester (principal); O99.891 Other specified diseases and conditions complicating pregnancy; Q51.4 Unicornate uterus; Z3A.28 28 weeks gestation of pregnancy
CPT/HCPCS: 59025; 59050; 99221; G0378

== ENCOUNTER 2025-01-27 08:40 | Outpatient (CLI) | payer BC, SELFPAY ==
[2025-01-27] VITALS (22 sets, daily range): BP systolic 119–133; BP diastolic 78–86; PULSE 116–128; TEMP 36.7; O2SAT 92–97; BMI 44.8
[2025-01-27 09:29] LABS: Color, Urine Yellow (Yellow); Glucose, Dipstick Normal (Normal); Ketone-Dipstick Negative (Negative); Leukocyte Esterase-Dipstick 100 /ul (Negative); Nitrite-Dipstick Negative (Negative); Occult Blood-Urine 10 /ul (Negative); Protein-Dipstick 30 mg/dl (Negative); Specific Gravity, Urine 1.025 (1.002-1.030); Urine Bilirubin Dipstick Negative (Negative); Urine Clarity Clear (Clear); Urine Urobilinogen Normal (Normal)
--- NOTE | 2025-01-27 12:49 | OB.TRI.NOTE ---
HPI - General HPI Narrative BUNNY GROVES, is a 30 F who presents with stable pelvic pressure and irregular ctxs. she denies VB/LOF. Maternal Data Information CADY Calculator Estimated Delivery Date Method Current WG Current Estimate 03/31/25 Manual 31w 0d PFSH PFSH Medical History Wears glasses Anxiety Alcohol use Back pain Injury of back Migraine headache Syncope Heartburn Asthma Non-smoker Leg cramps Cardiology follow-up encounter History of stress test History of irregular heartbeat Home Medications ?Medication ?Instructions ?Recorded ?Last Taken ?Type albuterol sulfate 90 mcg/actuation 2 inh inhalation Q8H PRN shortness 09/30/23 Unknown History aerosol inhaler of breath or wheezing aspirin 81 mg chewable tablet 1 tab PO DAILY 01/09/25 01/08/25 22:00 History (Aspirin Childrens) metoprolol succinate 25 mg 25 mg PO PRN 01/09/25 Unknown History tablet,extended release 24 hr (Toprol XL) vitamins-iron fumarate 65 1 tab PO DAILY 01/09/25 01/08/25 22:00 History mg iron-folic acid 1 mg tablet (Mynatal Plus) progesterone micronized 200 mg 200 mg vaginal DAILY 01/09/25 01/08/25 22:00 History capsule Allergy/AdvReac Type Severity Reaction Status Date / Time No Known Allergies Allergy Verified 01/09/25 11:22 Surgical History Hx of breast reduction, elective History of wisdom tooth extraction History of laparoscopic cholecystectomy Hx of tonsillectomy Social History Smoking Status: Never smoker History 1 Elective abortions Hx Para 0 Spontaneous abortions Hx # Term Pregnancies Ectopic pregnancies Hx # Pregnancies Multiple births # of living children Physical Exam Const alert and oriented x3 GI soft to palpation, non-tender and non-distended Inspection: gravid external exam normal Narrative: cvx - 2//-3 NST FHR Rate Baby A Baseline: 135 Variability:: Moderate Accelerations:: 15 x 15 Decelerations:: Variable NST Reactive:: Yes Uterine Activity:: Irritability Assessment & Plan (1) Threatened labor, antepartum: PLAN: Plan Stable cervical exam from admission last week. Reactive NST.
== END 2025-01-27 12:55 | disposition home or self-care (01) ==
LOC: WPOUT 08:52 → WP 08:52
PROVIDERS: PCP Internal Medicine; Referring Provider Obstetrics & Gynecology; Visit Provider Obstetrics & Gynecology
DX: O47.00 False labor before 37 completed weeks of gestation, unspecified trimester (principal); Z79.82 Long term (current) use of aspirin; Z79.899 Other long term (current) drug therapy; Z3A.00 Weeks of gestation of pregnancy not specified
CPT/HCPCS: 59025; 59050; 81002; 87086; 87088; 99221; G0378

== ENCOUNTER 2025-02-17 20:13 | Inpatient (IN) | payer BC, SELFPAY ==
[2025-02-17] VITALS (12 sets, daily range): BP systolic 102–133; BP diastolic 71–92; PULSE 90–123; RESP 16–18; TEMP 36.3–36.6; O2SAT 97–100; BMI 45.6
--- NOTE | 2025-02-17 20:23 | HP.PCM.OB_ITS ---
HPI - General General Date of Admission: 02/17/25 Date of Service: 02/17/25 Chief Complaint: contractions HPI Narrative BUNNY GROVES, is a 30 F who presents 1 para 0 at 34 weeks who has been tello for a couple of weeks. At last cervical exam in the office she was 2 cm and 40% effaced. She states she is been tello more the last 36 hours and significantly more today. She is getting more more uncomfortable in the ev rebecca 5 minutes. She denies any gross vaginal bleeding or leaking of fluid. She has had good movement. Her is complicated to date by threatened labor and maternal obesity with BMI of 45. She also was recently diagnosed with gestational diabetes just a week ago and is not on any medication for this. Maternal Data Information CADY Calculator Estimated Delivery Date Method Current WG Current Estimate 03/31/25 Manual 34w 0d Gestational age: 34 0/7 PFSH PFSH Medical History Wears glasses Anxiety Alcohol use Back pain Injury of back Migraine headache Syncope Heartburn Asthma Non-smoker Leg cramps Cardiology follow-up encounter History of stress test History of irregular heartbeat Home Medications ?Medication ?Instructions ?Recorded ?Last Taken ?Type albuterol sulfate 90 mcg/actuation 2 inh inhalation Q8 H PRN shortness 09/30/23 Unknown History aerosol inhaler of breath or wheezing aspirin 81 mg chewable tablet 1 tab PO DAILY 01/09/25 02/16/25 History (Aspirin Childrens) metoprolol succinate 25 mg 25 mg PO PRN 01/09/25 Unkno wn History tablet,extended release 24 hr (Toprol XL) vitamins-iron fumarate 65 1 tab PO DAILY 12/1902/16/25 History mg iron-folic acid 1 mg tablet (Mynatal Plus) famotidine 20 mg tablet (Acid 20 mg PO DAILY 02/17/25 02/16/25 History Sales Special Agent (famotidine)) Allergy/AdvReac Type Severity Reaction Status Date / Time No Known Allergies Allergy Verified 02/17/25 19:53 Surgical History Hx of breast reduction, elective History of wisdom tooth extraction History of laparoscopic cholecystectomy Hx of tonsillectomy Social History Smoking Status: Never smoker History 1 Elective abortions Hx Para 0 Spontaneous abortions Hx # Term Pregnancies Ectopic pregnancies Hx # Pregnancies Multiple births # of living children ROS Constitutional Constitutional: Denies fatigue, fever(s) or malaise Eyes Eyes: Denies change in vision ENT HEENT: Denies dizziness or headache(s) Cardiovascular Cardiovascular: Denies chest pain, dyspnea or lightheadedness Respiratory/Chest Respiratory/Chest: Denies cough or dyspnea Gastrointestinal Gastrointestinal: Denies change in bowel habits Genitourinary Genitourinary: Denies burning urination or genital lesions Integumentary Integumentary: Denies rash Neurologic Neurologic: Denies confusion, dizziness, headache(s), numbness or weakness Vital Signs Vital Signs Vital Signs: 02/17/25 19:46 02/17/25 19:46 02/17/25 19:48 Temperature Temperature Source Pulse Rate 123 H Respiratory Rate Blood Pressure 119/71 BP Systolic 119 BP Diastolic 71 Pulse Ox 97 02/17/25 19:48 02/17/25 19:48 02/17/25 19:48 Temperature Temperature Source Temporal Pulse Rate 118 H Respiratory Rate 18 Blood Pressure BP Systolic BP Diastolic Pulse Ox 02/17/25 19:48 Temperature 97.9 F Temperature Source Pulse Rate Respiratory Rate Blood Pressure BP Systolic BP Diastolic Pulse Ox Weight Weight: 135.987 kg Body Mass Index (BMI) 45.6 Physical Exam Narrative 90/-5, no presenting part Const alert and no apparent distress General Appearance: cooperative HEENT normocephalic Resp normal respiratory effort Cardio regular rate GI soft to palpation GI Narrative: gravid, nontender, appropriate for gestational age Extremity no calf tenderness General Extremity: edema Skin no wounds Rashes: No rashes noted Psych activity/motor behavior normal Labs Labs Labs: Hct 41.8 % (37-47) Hgb 13.5 g/dL (12.0-15.0) Chlamydia DNA (VINICIO) Negative (Negative) N.gonorrhoeae DNA (VINICIO) Negative (Negative) Assessment & Plan (1) High-risk in third trimester: (2) 34 weeks gestation of : (3) Maternal obesity syndrome in third trimester: (4) BMI 45.0-49.9, adult: (5) 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 She understands this is permanent irreversible and declines reversible options. (7) Footling breech presentation: QUALIFIERS: Fetus number: single or unspecified fetus Qualified Code(s): O32.8XX0 - Maternal care for other malpresentation of fetus, not applicable or unspecified PLAN: Plan Risk benefits and alternatives and personnel involved to section were discussed with patient her questions were answered to her satisfaction she desires to proceed. Special care team has been notified. Patient has received betamethasone earlier in the . Consent was signed. Preoperative antibiotics ordered.
[2025-02-17] MEDS: Lactated Ringers 1,000 ML 999 ML IV (20:25)
[2025-02-17] MEDS: Sodium Citrate/Citric Acid 30 ML UDC PO (20:39)
[2025-02-17] MEDS: Acetaminophen 500 MG Tablet 1000 MG PO (20:39)
[2025-02-17] MEDS: Cefazolin 3 GM in 0.9% Normal Saline (100mL Bag) 100 ML IV (20:50)
[2025-02-17 20:58] LABS: Absolute Lymphocyte Count 2.28 X10^3/uL (0.83-4.51); Absolute Neutrophil Count 9.7 X10^3/uL (2.0-7.7); Basophil# 0.04 X10^3/uL; Basophil% 0.3 % (0-1); Eosinophil# 0.12 X10^3/uL; Eosinophils% 0.9 % (0-5); Hematocrit 36.4 % (37-47); Hemoglobin 12.6 g/dL (12.0-15.0); Lymphocyte # 2.28 X10^3/ul (0.83-4.51); Lymphocyte % 17.5 % (19-41); Mean Corp Hgb Conc 34.6 g/dL (32-36); Mean Corpuscular Hgb 27.8 pg (27.0-32.0); Mean Corpuscular Volume 80.2 fL (81-99); Mean Platelet Vol. 11.3 fl (6.2-12.0); Monocyte# 0.79 X10^3/uL; Monocyte% 6.1 % (0-10); NRBC Flagged by Analyzer 0 % (0-5); Neutrophil # 9.72 X10^3/uL (2.7-7.7); Neutrophil % 74.6 % (47-70); RBC Distribution Width CV 13.4 % (11.6-14.6); RBC Distribution Width SD 38.5 fl (35.1-43.9); Red Blood Count 4.54 M/mm3 (4.2-5.4)
[2025-02-17 21:06] LABS: Platelet Count 262 K/mm3 (150-450)
--- NOTE | 2025-02-17 21:09 | FALS_PTH ---
PATIENT: BUNNY GROVES LOC: [facility] U#:[id number] AGE/SX: 30/F ROOM: WP018 RE02/17/[address]: Dr. Kemi Bhatt MD : 1995 BED: 1 DIS: 02/19/2025 SPEC #: [id number] RECD: 02/18/25 09:23 STATUS: JEFFERSON REPatience #: [id number] MAGGIE: 02/17/25 21:[address]: Kemi Bhatt DEPT: SURGICAL PATHOLOGY RECD BY: Sis Murrell ENTERED: 02/18/25 09:23 SP TYPE: FALL TUBES OTHR DR: Dr. Mely Hudson MD Tissues: Fallopian tube Procedures: Surgery Specimen Level II HEADER OPERATION: Tubal ligation PRE-OP DIAGNOSIS: Sterilization TISSUE SUBMITTED: A- Bilateral fallopian tubes MICROSCOPIC DIAGNOSIS A. Bilateral fallopian tubes, sterilization, salpingectomy: * No specific pathologic change, right tube. * No specific pathologic change, left tube portions - see note. * Note: A complete luminal cross-section is not identified in the portions of the left tube. MICROSCOPIC DESCRIPTION Slides are reviewed. GROSS DESCRIPTION A. Received in formalin in a container labeled with the patient's name, date of , and suture R tube is a fimbriated fallopian tube segment with a suture indicating right tube. The specimen is 6 cm in length with a diameter ranging from 0.3 to 1.5 cm. The serosa is purple-lamar, smooth, with unremarkable fimbria. Sectioning reveals a pinpoint lumen. Received in the same container is a presumed left fallopian tube remnant received in multiple fragments. There is a 2.5 x 1.7 x 1.0 cm fimbriated end with an attached 0.4 cm in length by 0.8 cm in diameter possible tube remnant. Sectioning reveals unremarkable fimbria with no distinct lumen. There are 2 separate tubular structures measuring 0.6 cm in length by 0.3 cm in diameter. The serosa of each is purple-lamar and smooth. Sectioning reveals a possible pinpoint lumen. Information Technology Audit Manager sections:A1. Right tubeA2. Left tube remnants [facility] 02-18-2025 CPT:15556f7
--- NOTE | 2025-02-17 21:11 | OP.PCM_ITS ---
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: Maternal Data Information CADY Calculator Estimated Delivery Date Method Current WG Current Estimate 03/31/25 Manual 34w 0d Final CADY: 03/31/25 Gestational age: 34 0/7 Operative Report (OB) Details Procedure Type: low transverse (With right salpingectomy and left partial salpingectomy for sterilization) Date of Procedure: 02/17/25 Procedure Start Time: 21:20 Procedure Stop Time: 21:46 Time of Delivery: 21:23 Pre-Operative Diagnosis: Desires elective sterilization and Breech Post-Operative Diagnosis: Same as Pre-operative diagnosis Classification: NELSON Type of Anesthesia: Spinal Antibiotic Given: Ancef 3 grams IV x1 Drain: Lopez to straight drain Estimated Blood Loss: 700 Fluids Replaced: 1500 Findings Description of surgery: The patient was taken to the operating room. She was prepped and draped in the dorsal supine position with a leftward tilt. A Pfannenstiel skin incision was made approximately 2 cm above the symphysis pubis and carried through to underlying layer fascia with the scalpel. The fascia was incised incised in the midline and extended laterally with the Merino scissors. The fascia was dissected off the rectus muscles with blunt and sharp dissection. The rectus muscles were in the midline and the peritoneum was entered bluntly. The peritoneal incision was stretched and the bladder blade was placed. It was noted that the uterus was very long and off to the right side consistent with unicornuate uterus. There was a well-developed lower uterine segment allowing for low transverse incision. The uterine incision was made in a low transverse fashion with the scalpel and extended superiorly and inferiorly with blunt dissection. The amniotic membranes were ruptured bluntly and clear amniotic fluid returned. The 's feet were brought out through the incision and delivered to the buttocks. The infant was turned to back up and the arms were swept out individually and the head was delivered with gentle fundal pressure without any traction and a loose nuchal cord x 1 was easily reduced. The mouth and nares were bulb suctioned. The cord was clamped and cut as the infant was stimulated. Cord clamping was not delayed. The was handed off to the waiting nursing staff. The placenta was delivered with fundal massage and gentle traction in the standard fashion. The uterus was exteriorized and cleared of all clots and debris. . The uterine incision was closed with #1 Vicryl in a running locked fashion. The incision was examined and was found to be hemostatic. It was noted that there did not appear to be a left side of the uterus and there was definitely not a separate cavity. I did palpate the left side and I could not appreciate a separate cavity and when I palpated it externally I could not appreciate a separate uterus. The tube was hyper developed there was a small amount of fimbria and the tube was very thin only 3 to 4 mm thick. The right tube was identified and followed out to the fimbriated end. The LigaSure device was used to clamp seal and transect the antimesenteric portion of the broad ligament to the cornual insertion of the tube which was clamped sealed and transected with the LigaSure device. Excellent hemostasis was noted. The left tube and the fimbria were removed. I could not safely remove the entirety of the tube because of how thin it was and how large the vessels were transversing underneath it. However I did transect approximately 3 cm section in the middle of the tube and approximately the proximal 2 cm of the tube near the cornual insertion. I then sealed the cornual insertion of the tube with the LigaSure device and explained the stasis was noted. The uterus was placed back into the peritoneal cavity and hemostasis was again confirmed. The rectus muscles were examined and any bleeding was Bovie cauterized. The parietal peritoneum and rectus muscles were closed en bloc with an 0 Vicryl running suture. The rectus fascia was examined and any bleeding was Bovie cauterized and the rectus fascia was closed with looped #1 PDS suture suture in a running standard fashion. Some Bobby was placed over the rectus muscles. It was also placed in the subcutaneous tissue. The subcutaneous tissue was examining and any bleeding was Bovie cauterized. The subcutaneous tissue was reapproximated with 3-0 Vicryl suture in 2 layers. The skin was closed in a subcuticular fashion by the TERRAZZO TILE SETTER with me present in the labor and delivery suite. I performed the remainder of the procedure with assistance. All sponge, lap, and needle counts were correct. The patient was taken to her room for recovery in a stable condition. Surgical findings: Normal bilateral ovaries, unicornuate right sided uterus. Hyper developed a left horn of the uterus and hyper developed left fallopian tube. Presentation: Footling Breech Amniotic Membrane Rupture Type: Artificial Amniotic Fluid Description: Clear Placental Delivery Description: Expressed Placenta Disposition: Sent with transport team Specimen collected: Yes Description of specimen(s) removed: Right fallopian tube and portions of left fallopian tube Cord Vessel Description: 3 Vessels Cord Entanglement: Around neck x 1, loose Nuchal Cord Compression: Without compression Cord Gases: ABG and VBG Infant A gender: Male (Apgars are unavailable at the time of this note. is being attended to by special care team) Delayed Cord Clamping: No Block Greaser detailer school photographs: Yes Catering Truck Operator: Sallie Santana Tasks completed by diver assistant: Closing, Hemostasis: Electrocautery and Retracting Additional customer marketing assistant?: No Complications Complications: No
[2025-02-17 21:32] LABS: Syphilis Antibodies Nonreactive (Nonreactive)
[2025-02-17] MEDS: Oxytocin 15 Units/NS 250ml 15 UNITS/250 ML IV.SOLN 83 UNITS IV (22:01)
[2025-02-17] MEDS: Ketorolac 30 MG/ML Syringe IV (22:44)
[2025-02-17] MEDS: 0.9% Saline Lock 10 ML Syringe IV (22:44)
[2025-02-17] MEDS: HYDROmorphone 1 MG/ML Syringe IV (22:52)
[2025-02-18] VITALS (17 sets, daily range): BP systolic 113–141; BP diastolic 19–93; PULSE 94–112; RESP 15–18; TEMP 36.1–36.6; O2SAT 72–98
[2025-02-18 00:24] LABS: Bedside Glucose 93 mg/dL (74-106)
[2025-02-18 00:28] LABS: Pathology Specimen OB SEE PATHOLOGY REPORT
[2025-02-18] MEDS: Lactated Ringers 1,000 ML 100 ML IV (01:03)
[2025-02-18] MEDS: Ondansetron 4 MG/2 ML Vial IV ×2 (01:03→08:15)
[2025-02-18] MEDS: HYDROmorphone 1 MG/ML Syringe IV ×3 (02:00→08:15)
[2025-02-18] MEDS: Acetaminophen 500 MG Tablet 1000 MG PO ×4 (03:13→21:23)
[2025-02-18] MEDS: Ketorolac 30 MG/ML Syringe IV ×3 (04:59→17:51)
[2025-02-18] MEDS: SimETHICONE 80 MG Chewable Tablet PO ×2 (05:10→15:41)
[2025-02-18 07:03] LABS: Bedside Glucose 102 mg/dL (74-106)
[2025-02-18 07:33] LABS: Hematocrit 34.3 % (37-47); Hemoglobin 11.7 g/dL (12.0-15.0); Mean Corp Hgb Conc 34.1 g/dL (32-36); Mean Corpuscular Hgb 27.7 pg (27.0-32.0); Mean Corpuscular Volume 81.3 fL (81-99); Mean Platelet Vol. 10.9 fl (6.2-12.0); Platelet Count 214 K/mm3 (150-450); RBC Distribution Width CV 13.2 % (11.6-14.6); RBC Distribution Width SD 38.6 fl (35.1-43.9); Red Blood Count 4.22 M/mm3 (4.2-5.4); White Blood Count 13.7 K/mm3 (4.4-11.0)
--- NOTE | 2025-02-18 09:29 | PCM.PN.BLA ---
Progress Note Pain moderate control, average lochia. A little nausea. Denies FOSS. Some RUQ pain. Physical Exam Narrative ext 2+ edema, no clonus bandage clean, dry and intact Const alert General Appearance: cooperative GI GI Narrative: soft, moderate distention, fundus firm, appropriately tender. Abdominal bandage clean dry and intact Assessment & Plan Assessment/Plan (1) Single live : (2) delivery delivered: (3) Gestational hypertension: QUALIFIERS: Trimester: unspecified trimester Qualified Code(s): O13.9 - Gestational [-induced] hypertension without significant proteinuria, unspecified trimester PLAN: Plan CBC appropriate for blood loss during surgery. SUspect RUQ pain due to postop c/s pain. BP elevated in mild range, she is generally normotensive but has been in pain as well. Monitor for preeclampsia. If BP increases or RUQ pain increases despite routine postop pain control measures will get LFTs/preeclampsia labs diet as tolerated binder as needed
[2025-02-18] MEDS: Senna/Docusate Sodium 1 Tablet PO (09:36)
[2025-02-18] MEDS: Enoxaparin 40 MG/0.4 ML Syringe SC ×2 (09:37→22:06)
[2025-02-18] MEDS: oxyCODONE 5 MG Tablet PO ×3 (11:14→21:32)
[2025-02-18] MEDS: 0.9% Saline Lock 10 ML Syringe IV ×2 (11:15→17:51)
--- NOTE | 2025-02-18 14:28 | CASEMGMT ---
Social Work Assessment Labor and Delivery Unit Patient Address:[address] [place] [address] Phone number: [phone] Date of Referral: 02/17/25 Time of Referral:? 2225 Referred By: Dr. Bhatt Date of Intervention: ??02/18/25 Time of Intervention:? 1200 Reason for Referral:?father has hx of alcoholism Sw completed chart review and acknowledges social work consult. Sw presented to bedside and introduced self to mother of baby (MOB- Juan Antonio) and father of baby (FOB- Gildardo Royal). Sw explained reason for sw involvement and completed psychosocial assessment. History obtained from: medical records, MOB and FOB Household composition: Currently residing in the home is MOB, FOB and baby when ready for discharge. Parents report that they are in the process of building and they have no housing concerns. Patient's parent/guardian status:? ?LISANDRO states that she and JON have known each other since they were kids in high school, and then reconnected on a dating sam. They have been together now for 3 years. They are not . This is first baby for parents, LISANDRO states that this is her only baby as well. Medical History: ?LISANDRO is 30 year old female who is 1, para 0- now 1 following labor and delivery of . LISANDRO received routine care during with [facility]. LISANDRO presented to hospital in labor and delivered baby via on 02/17/25 at 34 weeks gestation. Baby boy, named Cecil Clancy, was born weighing 6lb 5oz with apgars of 3, 6 and 8 at one, five and ten minutes of life, respectfully. Baby required transfer to [facility] ([facility]). LISANDRO states that she is hoping to breast feed or provide breast milk, however she has had a breast reduction and she is not sure if she will be successful or not. Baby will be followed by Dr. Niño for pediatrics. Educational Status:? Both parents graduated from high school. NO concerns or problems with reading, learning or comprehension. Financial Status: MOB and FOB are gainfully employed. FOB works for a [employer] and MOB works remotely. 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 Supplies: All necessary baby supplies obtained. LISANDRO states that she knew that baby may be born early so they got all the necessary baby supplies set up and ready, including: car seat, safe sleep space, clothes, diapers and wipes. Childcare/Caregiver(s):? MOB will be the primary caregiver to baby Transportation:?? Both parents have their drivers license and reliable means of transportation, no barriers. Programs/Agencies Involved: ??Parents are not connected to any community resources that assist them financially as they are over income. ?Sw looked at [facility] qualification guidelines and MOB confirmed that the household income is too high for eligibility. Children Services/Legal Issues:???No involvement with children services, no issues or concerns warranting referral to be made at this time. Behavioral Health Issues: ??Mental Health History:??Parents deny mental health history. MOB states that she has a heart condition (tachycardia) which sometimes providers would state that anxiety is a result of this diagnoses. MOB states that she does not struggle with anxiety. ? Substance Use History:?Parents deny substance use prior to and during . ? Family History:??MOB states that her father has a history of alcoholism. MOB states that he will not be a primary caregiver to baby as they are not on speaking terms and he will not be involved. ??? Drug Screens: No drug screens observed while completing chart review. Family/Social Stressors:? Parents deny any problems or concerns at this time. Sw talked about parents giving themselves ashley while baby is admitted to [facility]. Sw explained that it is important to find a balance between being present at bedside and also taking appropriate time away from bedside as well. Sw did encourage parents to be present and active in care as often as are able. Parents express understanding. Support Systems:MOB states that both sets of parents are their biggest supports, aside from maternal grandpa. Depression/Shaken Baby/Safe Sleeping: Sw educated parents on signs and symptoms of baby blues and depression and anxiety. MOB states that they are familiar with what to be mindful of as it is part of their EMT training. MOB states that due to baby being admitted to [facility] she is slightly worried about experiencing some mental health struggles. FOB states that if MOB were to struggle he would be able to recognize that and would know how to help and support her. Sw educated parents on shaken baby prevention and ABCs of safe sleep. Parents express understanding. Sw also encouraged MOB to be receptive to talking to a mental health professional if she does start to struggle during this period. At this time MOB denies feeling sad, anxious or overwhelmed. MOB states that she is happy baby is here. ASSESSMENT:? MOB and baby admitted following labor and delivery. MOB observed to be laying in bed comfortably and FOB in reclining chair. Both parents were open and receptive to meeting with sw. MOB states that although anxiety is in her chart, she does not believe that it is truly something that she has struggled with. MOB states that she is familiar with baby blues and depression terms and symptoms to be mindful of. MOB states that she has her parents and FOB who are supportive, as well as other family members and friends who have had babies. Sw discussed with MOB triggers for her anxiety that she may experience during this time, such as: a delivery that was a , labor, baby requiring SCN admission and MOB may not be able to provide breast milk for baby. MOB states that she understands these may be triggering experiences for her and she is thankful baby is able to stay at [facility] and does not have to go to main campus. Parents made and maintained eye contact with sw and were pleasant throughout conversation. PLAN:?? No other services requested or indicated. MOB and baby to be discharged when medically ready. Parents were provided literature regarding: signs and symptoms of baby blues and mood and anxiety disorders, Help Me Grow, shaken baby prevention, ABCs of safe sleep and a list of county resources that are available for them should any needs present themselves. Malia Rojo, HAND INSERTER OPERATOR, MANAGER TRANSFER
[2025-02-18] MEDS: Naproxen 500 MG Tablet PO (22:06)
[2025-02-19 01:55] VITALS: BP 131/74; PULSE 100; O2SAT 97
[2025-02-19 02:04] VITALS: BP 131/74; PULSE 101; RESP 16; TEMP 36.8; O2SAT 97
[2025-02-19] MEDS: Acetaminophen 500 MG Tablet 1000 MG PO ×2 (03:27→10:00)
[2025-02-19] MEDS: Naproxen 500 MG Tablet PO ×2 (06:10→13:15)
[2025-02-19 09:45] VITALS: BP 127/77; PULSE 104; RESP 14; TEMP 36.1; O2SAT 97
[2025-02-19 09:55] VITALS: BP 127/77; PULSE 108; O2SAT 95
[2025-02-19] MEDS: Enoxaparin 40 MG/0.4 ML Syringe SC (09:59)
[2025-02-19] MEDS: Senna/Docusate Sodium 1 Tablet PO (09:59)
--- NOTE | 2025-02-19 10:48 | PN.OBGYN_ITS ---
Subjective Subjective Doing well per patient and nursing staff. Ambulating and taking PO without difficulty. Voiding and passing flatus. Pain controlled. , services for assistance. Denies headache, visual changes, chest pain, shortness of breath, leg pain or increased bleeding. Lochia normal. Objective Data Objective Data Vital Signs: Vital Signs Temp Pulse Resp BP Pulse Ox O2 Del Method 97.0 F L 108 H 14 127/77 H 95 Room Air 02/19/25 09:45 02/19/25 09:55 02/19/25 09:45 02/19/25 09:55 02/19/25 09:55 02/19/25 09:45 Oxygen Delivery Method Room Air Weight: 299 lb 12.8 oz Body Mass Index (BMI) 45.6 Intake & Output: Intake and Output for Last 24 Hours 02/17/25 02/18/25 02/19/25 23:59 23:59 23:59 Intake Total 1115 / 1115 1850 / 1850 Output Total 700 / 700 800 / 800 300 / 300 Balance 415 / 415 1050 / 1050 -300 / -300 Lab / Micro Data 02/18/25 07:20 ROS Constitutional Constitutional: Reports systems reviewed and no addt'l complaints, except as documented; Denies headache(s) Eyes Eyes: Denies acute decrease in peripheral vision, blurry vision or change in vision ENT HEENT: Reports systems reviewed and no addt'l complaints, except as documented Cardiovascular Cardiovascular: Denies chest pain or dizziness Respiratory/Chest Respiratory/Chest: Denies cough, dyspnea, dyspnea on exertion, shortness of breath at rest or shortness of breath with exertion Gastrointestinal Gastrointestinal: Denies abdominal pain, diarrhea, nausea or vomiting Genitourinary Genitourinary: Denies abdominal discomfort Musculoskeletal Musculoskeletal: Denies limited range of motion Integumentary Integumentary: Reports systems reviewed and no addt'l complaints, except as documented Neurologic Neurologic: Reports systems reviewed and no addt'l complaints, except as documented Psychiatric Psychiatric: Reports systems reviewed and no addt'l complaints, except as documented Endocrine Endocrinology: Reports systems reviewed and no addt'l complaints, except as documented Hematologic/Lymphatic Hematologic/Lymphatic: Reports systems reviewed and no addt'l complaints, except as documented Allergic/Immunologic Allergic/Immunologic: Reports systems reviewed and no addt'l complaints, except as documented Physical Exam Const alert and oriented x3 General Appearance: cooperative Orientation / Consciousness: awake, oriented to person, oriented to place and oriented to time Exam Limitations: no limitations HEENT normocephalic Head and Scalp: normal to inspection, normocephalic and atraumatic Face and Sinus: normal facial exam Eyes General Eye: normal appearance of both eyes Neck full ROM Chest Chest: symmetrical chest wall rise Resp normal respiratory effort and normal air movement Auscultation: clear to auscultation bilaterally Cardio regular rate, regular rhythm, S1 normal heart sound, S2 normal heart sound, no murmurs, no rub, no gallops and no clicks GI normal to inspection, nondistended, normoactive bowel sounds and non-tender GI Narrative: Fundus firm 2 below U. Dressing dry and intact appearance of the vagina normal Bladder / Kidney Exam: no CVA tenderness Back/Spine normal ROM Extremity normal to inspection and full ROM Skin no rashes or lesions noted Neuro oriented x3, CN's II-XII intact bilaterally and moves all extremities Sensorium / Orientation: awake, alert and oriented to person Motor Exam: clonus absent Deep Tendon Reflexes: Rt Patellar (L4): 2+ and Lt Patellar (L4): 2+ Assessment & Plan (1) Gestational hypertension: QUALIFIERS: Trimester: unspecified trimester Qualified Code(s): O 13.9 - Gestational [-induced] hypertension without significant proteinuria, unspecified trimester (2) Single live : (3) delivery delivered: (4) Footling breech presentation: QUALIFIERS: Fetus number: single or unspecified fetus Qualified Code(s): O32.8XX0 - Maternal care for other malpresentation of fetus, not applicable or unspecified (5) Sterilization: PLAN: Plan 1) Routine care, POD #2 LTCS with bilateral salpingectomy 2) Vitals signs stable 3) Pain controlled 4) , services PRN 5) D/C home. baby in SCN and will D/C to hotel status until baby is able to be discharged. 6) Follow up in 2 weeks and 6 weeks
--- NOTE | 2025-02-19 10:51 | PCM.DC.SUM ---
Providers Date of Admission: 02/17/25 Primary Care Physician: Dr. Mely Hudson MD Reason For Visit: SCHEDULED SECTION Diagnosis Discharge Diagnosis (1) Single live : Status: Acute Code(s): Z37.0 - Single live (2) delivery delivered: Status: Acute Code(s): O82 - Encounter for delivery without indication (3) Sterilization: Status: Acute Code(s): Z30.2 - Encounter for sterilization Plan 1) Routine care, POD #2 LTCS with bilateral salpingectomy 2) Vitals signs stable 3) Pain controlled 4) , services PRN 5) D/C home. baby in SCN and will D/C to hotel status until baby is able to be discharged. 6) Follow up in 2 weeks and 6 weeks Medications at Discharge Home Medications vitamins-iron fumarate 65 mg iron-folic acid 1 mg tablet (Mynatal Plus) 1 tab PO DAILY 01/09/25 acetaminophen 500 mg tablet 1,000 mg (2 x 500 mg) PO Q6H #0 tabs 02/19/25 bisacodyl 10 mg rectal suppository 10 mg NV DAILY PRN PRN Constipation #0 ea 02/19/25 naproxen 500 mg tablet 500 mg PO Q8H #0 tabs 02/19/25 oxycodone 5 mg tablet 5 mg PO Q6H 7 days #7 tabs 02/19/25 Hospital Course Summary of Care Provided Minutes Spent on Discharge: 15 Hospital Course: Presented on 02/17/25 for Primary LTCS due to footling breech presentation and gestational hypertension. Primary low transverse with right salpingectomy and left partial salpingectomy for sterilization. Postoperative course uncomplicated. Discharged home on postoperative day #2. Weight / BMI Weight Weight: 299 lb 12.8 oz Body Mass Index (BMI) 45.6 ABG / Lab / Microbiology Data 02/18/25 07:20 D/C Instructions Discharge Diet: No restrictions May resume sexual activity in: 6 weeks Weight Bearing Status: Full weight bearing Lifting Restricted to (Lbs): 20 Call your doctor if your incision/area has: Continuous Slow Oozing, Sudden Increased Bleeding, Increased Pain/ Swelling, Increased Redness, Foul Smelling Discharge and Swelling at the incision site Call your doctor if you observe: Fever of 101 or Higher, Inability to urinate, Inability to have a bowel movement, Using more than 1 pad per hour, Shortness of breath, Dizziness, Fainting spells, Chest pain, Increased palpitations (irregular heartbeat), Calf discomfort and Uncontrolled pain Suture Line Care: Avoid Pulling/Pushing Remove Dressing in: 1 week Cleanse incision/area with: Keep Dressing Clean & Dry DC O2, CPAP, BIPAP Needs Home O2 Discharge instructions: No Meaningful Use Info Meaningful Use Meaningful Use Diagnoses (Choose all that apply): None applicable Ischemic Stroke Statin Dosing Therapy Reference: STATIN DOSE THERAPY REFERENCE: * Patients > 75 years receive moderate or high dose statin therapy. * Patients 75 years or YOUNGER should receive HIGH intensity statin dose unless contraindicated. You will be required to document reason for non-treatment if statin daily dose does not meet guidelines. HIGH DOSE STATIN THERAPY DAILY Atorvastatin > than or = to 40 mg Rosuvastatin > than or = to 20 mg Amlodipine + Atorvastatin > than or = to 2.5/40 mg Ezetimibe + Simvastatin 10/80 mg Simvastatin 80mg Discharge Plan Admission Admit Date/Time: 02/17/25 20:13 Primary Reason for Your Visit: section with tubal sterlization Attending Provider: Kemi Bhatt Primary Care Provider: Mely Hudson Discharge Orders/Prescriptions Prescriptions: New acetaminophen 500 mg Tablet 1,000 mg PO Q6H Qty: 0 0RF bisacodyl 10 mg Suppository 10 mg NV DAILY PRN PRN (Reason: Constipation) Qty: 0 0RF naproxen 500 mg Tablet 500 mg PO Q8H Qty: 0 0RF oxycodone 5 mg Tablet 5 mg PO Q6H 7 Days Qty: 7 0RF Continued Mynatal Plus 65 mg iron- 1 mg tablet 1 tab PO DAILY Discontinued albuterol sulfate 90 mcg/actuation HFA aerosol inhaler 2 inh inhalation Q8H PRN (Reason: shortness of breath or wheezing) famotidine [Acid [employer] Brick (famotidine)] 20 mg tablet 20 mg PO DAILY aspirin [Aspirin Childrens] 81 mg tablet,chewable 1 tab PO DAILY metoprolol succinate [Toprol XL] 25 mg tablet extended release 24 hr 25 mg PO PRN Patient Comments: pt takes when her heart rate is 140 or over Referrals / Follow Up: Mely Hudson MD [Primary Care Provider] - Disposition Disposition (needs filled in before D/C Order can be placed): Home, Self Care
[2025-02-19 13:30] VITALS: BP 127/85; PULSE 106; RESP 14; TEMP 36.7; O2SAT 97
== END 2025-02-19 14:00 | disposition home or self-care (01) | DRG 785 ==
LOC: WPOUT 20:15 → WP 21:35
PROVIDERS: Admitting Provider Obstetrics & Gynecology; PCP Internal Medicine; Referring Provider Obstetrics & Gynecology; Visit Provider Obstetrics & Gynecology
DX: O32.8XX0 Maternal care for other malpresentation of fetus, not applicable or unspecified (principal); E66.9 Obesity, unspecified; O24.420 Gestational diabetes mellitus in childbirth, diet controlled; O99.214 Obesity complicating childbirth; O13.4 Gestational [pregnancy-induced] hypertension without significant proteinuria, complicating childbirth; O34.03 Maternal care for unspecified congenital malformation of uterus, third trimester; Q51.4 Unicornate uterus; Z37.0 Single live birth; Z3A.34 34 weeks gestation of pregnancy; O69.81X0 Labor and delivery complicated by cord around neck, without compression, not applicable or unspecified; Z30.2 Encounter for sterilization; Z79.82 Long term (current) use of aspirin; Z79.899 Other long term (current) drug therapy
CPT/HCPCS: 59025; 59050; 82962; 85025; 85027; 86780; 86850; 86900; 86901; 88302; 99221; A4216; G0378; J2405

== ENCOUNTER → 2025-08-01 | Outpatient (CLI) | payer OTHER, SELFPAY ==
--- NOTE | 2025-08-01 13:56 | BI_ITS ---
EXAM: DIAG MAMM W/CAD, BILAT N/A CLINICAL HISTORY: F, Age 30 y/o , LEFT BREAST MASS. Left breast palpable mass. Left breast pain. Evaluate. Patient has a history of bilateral breast reduction surgery. TECHNIQUE: Procedure Code: [id number] Modality: MG Procedure: DIAG MAMM W/CAD, BILAT. COMPARISON: None. FINDINGS: TISSUE DENSITY: There are scattered areas of fibroglandular density. Bilateral Breast Mammographic Findings: A radiopaque marker is placed over the left breast palpable abnormality that is tender. There is no mammographic abnormality in this location to correlate. Further workup with ultrasound will be performed for further evaluation. There is subtle architectural distortion in the inferior aspect of both breasts from her prior breast reduction surgery. Benign round microcalcifications are seen in both breasts. No significant masses, calcifications or other abnormalities are identified. BI/DIAG MAMM W/CAD, BILAT IMPRESSION: A radiopaque marker is placed over the left breast palpable abnormality that is tender. There is no mammographic abnormality in this location to correlate. Further workup with ultrasound will be performed fo r further evaluation. OVERALL FINAL ASSESSMENT BI-RADS 0: INCOMPLETE - NEED ADDITIONAL IMAGING EVALUATION. RECOMMENDATION: Ultrasound Recommended Additional Recommendation none A letter with findings and recommendations will be mailed to the patient. Reading Location: [id number]
--- NOTE | 2025-08-01 14:54 | US_ITS ---
PROCEDURE: BREAST LIMITED UNILATERAL 08/01/2025 REASON FOR EXAM: F, Age 30 y/o , LEFT BREAST MASS Left breast palpable abnormality that is painful. Inconclusive mammogram. Evaluate. COMPARISON: Mammogram study dated 08/01/2025. TECHNIQUE: Procedure Code: [id number] Modality: US Procedure: BREAST LIMITED UNILATERAL FINDINGS: There is no ultrasound abnormality in the left breast to correlate to the palpable abnormality that is painful. The palpable abnormality that is painful is located in the upper inner quadrant. No suspicious solid or cystic masses are seen. The skin is not abnormally thickened. This area appears to represent normal breast tissue. US/Breast Limited Unilateral IMPRESSION: Benign ultrasound examination. The patient should return to the age of 39 for routine yearly screening mammogr aphy unless this area does increase in size. If the area increases in size or if the pain becomes more severe, a breast MRI zuleyka uld be considered. BI-RADS 1: NEGATIVE RECOMMENDATION: Patient should return at age of 39 for routine yearly screening mammography. Reading Location: [id number]
== END | disposition home or self-care (01) ==
LOC: OPBI 13:50
PROVIDERS: PCP Internal Medicine; Referring Provider Nurse Practitioner Women's Health; Visit Provider Nurse Practitioner Women's Health
DX: N63.20 Unspecified lump in the left breast, unspecified quadrant (principal); N64.4 Mastodynia; Z98.890 Other specified postprocedural states
CPT/HCPCS: 76642; 77062; 77066; G0279